=== PATIENT | male | born 1960 | race Caucasian/White ===

== ENCOUNTER 2022-12-25 15:04 | Outpatient (OUT) | payer OTHER, SELFPAY ==
--- NOTE | 2022-12-25 15:53 | CA_ITS ---
Patient: MCKAYLA CAMPOS Exam Date: 12/25/2022 : 1960 Gender:M Ordering : FATEMEH PETTIT Admission #: [id number] Family : Order #: [id number] CLICK HERE TO VIEW EXAM ECHOCARDIOGRAM REPORT PROCEDURE: CA ECHO DOPPLER COMPLETE INDICATIONS: Shortness of breath COMPARISON: None. DESCRIPTION: COMPLETE ECHOCARDIOGRAM Real-time transthoracic echocardiography with 2D, M-mode, spectral and color flow Doppler performed. QUALITY: Technical quality was good. LEFT VENTRICLE: Normal chamber size. Mild concentric left ventricular hypertrophy. LV EF: Global left ventricular systolic function is normal. Calculated left ventricular ejection fraction is 60% DIASTOLIC: Normal diastolic function. ATRIAL SEPTUM: Inadequately seen. LEFT ATRIUM: Normal chamber size. RIGHT ATRIUM: Normal chamber size. RIGHT VENTRICLE: Normal chamber size. Normal right ventricular systolic function. TRICUSPID VALVE: Normal mobility and thickness. No stenosis with trivial regurgitation. No evidence of pulmonary hypertension. RVSP 20mmHg MITRAL VALVE: Normal mobility and thickness. No evidence of mitral valve stenosis. There is no mitral annular calcification. Trivial mitral regurgitation. AORTIC VALVE: Normal trileaflet appearance. No visible sclerosis. Normal leaflet mobility. No evidence of aortic valve stenosis. No aortic regurgitation. AORTIC ROOT: Normal diameter and appearance. PULMONIC VALVE: Normal thickness and mobility. No stenosis. Trivial regurgitation. PERICARDIUM: No evidence of pericardial effusion. IVC: Collapses with inspirations. Normal size. CONCLUSION: 1. Global left ventricular systolic function is normal; visually estimated ejection fraction is 55 to 60% 2. Mildly increased left ventricular wall thickness 3. The right ventricle is normal in size and systolic function 4. Normal diastolic function 5. No significant valvular abnormalities Adult Echocardiography Procedure Report Left Ventricle LVEDD (3.7 - 5.6 cm): 5.04 cm LVESD (2.2 - 4.0 cm): 3.29 cm LVIVS thickness (0.6 - 1.2 cm): 1.31 cm LVPW thickness (0.5 - 1.0 cm): 1.24 cm e': 0.07 m/s E - e': 10.02 LVOT Max Gradient: 3.31 mm[Hg], 3.17 mm[Hg] LVOT Area (cm2): 0.90 m/s Peak Velocity (LVOT): 0.91 m/s, 0.89 m/s Mean Velocity (LVOT): 0.62 m/s LVOT Diameter 2.50 cm Left Ventricular Ejection Fraction: 59.97 % Left Atrium LA Volume Index (2D A2C): 25.62 ml/m2 Left Atrium Systolic Dimension: 3.56 cm Mitral Valve MV E to A Ratio: 0.76, 0.79 Mitral Valve A-Wave Peak Velocity: 0.92 m/s Mitral Valve E-Wave Peak Velocity: 0.72 m/s Right Ventricle RV Internal Diastolic Dimension: 3.71 cm Aorta AO Root Diam: 3.71 cm Ascending Ao Diam: 3.15 cm Aortic Valve AoV Area (Peak Felix): 3.73 cm2, 3.77 cm2, 3.69 cm2 AoV Area (VTI): 3.94 cm2, 3.91 cm2, 3.97 cm2 Peak Velocity(Antegrade Flow): 1.18 m/s, 1.18 m/s Peak Gradient(Antegrade Flow): 5.58 mm[Hg], 5.58 mm[Hg] Mean Velocity(Antegrade Flow): 0.87 m/s, 0.89 m/s Mean Gradient(Antegrade Flow): 3.36 mm[Hg], 3.53 mm[Hg] Velocity Time Integral: 24.43 cm, 25.92 cm Tricuspid Valve Peak Velocity (Regurgitant Flow): 1.77 m/s, 2.06 m/s Pulmonic Valve Peak Velocity: 0.70 m/s Peak Gradient: 2.26 mm[Hg], 1.63 mm[Hg] Right Atrium Right Atrium Systolic Pressure: 43.53 ml, 43.53 ml Dictated by: John Brice M.D. on 12/26/2022 at 16:54 Approved by: John Brice M.D. on 12/26/2022 at 16:57
== END 2022-12-25 15:05 | disposition home or self-care (01) ==
LOC: CARD 15:05
PROVIDERS: Visit Provider Nurse Practitioner
DX: R06.09 Other forms of dyspnea (principal)
CPT/HCPCS: 93306

== ENCOUNTER 2023-01-26 10:27 | Outpatient (OUT) | payer OTHER, SELFPAY ==
[2023-01-26 11:12] LABS: Basophils Absolute Auto 0.1 10^3/uL (0.0-0.1); Eosinophils Absolute Auto 0.2 10^3/uL (0.0-0.7); Eosinophils Percent Auto 2.2 % (0.9-7.0); Hematocrit 43.8 % (42.0-54.0); Hemoglobin 14.6 g/dL (14.0-18.0); Immature Granulocytes Abs Auto 0.03 10^3/uL (0.00-0.03); Immature Granulocytes Pct Auto 0.4 % (0.0-0.5); Lymphocytes Absolute Auto 2.5 10^3/uL (1.2-3.8); Lymphocytes Percent Auto 34.3 % (20.5-60.0); Mean Corpuscular HGB Conc 33.3 g/dL (29.9-35.2); Mean Corpuscular Hemoglobin 30.7 pg (25.9-34.0); Monocytes Absolute Auto 0.7 10^3/uL (0.3-0.8); Monocytes Percent Auto 9.9 % (1.7-12.0); Neutrophils Absolute Auto 3.7 10^3/uL (1.4-6.5); Neutrophils Percent Auto 52.2 % (43.0-75.0); Platelet Count 267 10^3/uL (150-450); Red Blood Count 4.76 10^6/uL (4.70-6.10); Red Cell Distribution Width 12.9 % (11.0-15.0); White Blood Count 7.2 10^3/uL (4.0-11.0)
[2023-01-26 12:00] LABS: Alanine Aminotransferase 28 U/L (16-63); Alkaline Phosphatase 90 U/L (46-116); Anion Gap 10.8; Aspartate Amino Transferase 17 U/L (15-37); BUN Creatinine Ratio 15.4; Bilirubin Total 0.3 mg/dL (0.2-1.0); Calcium 9.4 mg/dL (8.5-10.1); Carbon Dioxide 28.2 mmol/L (21.0-32.0); Chloride 102 mmol/L (98-107); Cholesterol 209 mg/dL (<=200); Estimated GFR (African America 58 (>=60); Estimated GFR (Non-African Ame 47 (>=60); Globulin 4.1 g/dL; Glucose 69 mg/dL (74-106); HDL Cholesterol 30 mg/dL (40-60); Sodium 137 mmol/L (136-145); Total Protein 8.1 g/dL (6.4-8.2); Triglycerides 142 mg/dL (<=150); VLDL CHOLESTEROL 28.4 mg/dL
== END 2023-01-26 10:28 | disposition home or self-care (01) ==
LOC: LAB 10:28
PROVIDERS: Visit Provider Nurse Practitioner Acute Care
DX: I25.10 Atherosclerotic heart disease of native coronary artery without angina pectoris (principal)
CPT/HCPCS: 36415; 80053; 80061; 85025

== ENCOUNTER 2023-12-08 08:58 | Outpatient (OUT) | payer OTHER, SELFPAY ==
--- NOTE | 2023-12-08 | PCN_ITS ---
CARDIAC STRESS TEST Requesting Physician: Mervat Vital NP Procedure Date: 12/08/2023 PERFORMING PROVIDER: Александр Mcfarland M.D. INDICATION: CAD evaluation. STRESS TEST PROTOCOL: Treadmill exercise stress test. Resting EKG: Sinus rhythm. Resting Heart Rate: 80 Peak Heart Rate: 146 Peak Maximal Heart Rate Percentage: 94 Resting Blood Pressure: 148/78 Peak Blood Pressure: 190/84 Exercise Time: 6 minutes 44 seconds Stage Reached: 3 Max METS: 9.20 Reason for Termination: Peripheral muscle fatigue, target heart rate achieved. Heart Rate Recovery: Normal Chronotropic Response Index: Normal Functional Capacity: Average Blood Pressure Response: Normal Salvador Treadmill Score: 6 CONCLUSION: 1. Resting EKG demonstrates normal sinus rhythm. 2. Patient exercised for 6 minutes and 44 seconds. She reached stage 3 with max METS 9.20. 3. There were no EKG changes meeting the criteria for ischemia at peak exercise. 4. Salvador score is 6, portending low risk of angiographically significant coronary artery disease. MIRELLA
--- OUTSIDE RECORDS SUMMARY | 2023-12-08 09:20 | XMS_ITS | CCD ---
Author Organization [facility] ion [facility] Care Team Providers Care Carpentry Professional Name Role Phone Alton Munguia Unavailable Unavailable NONE, XXXX Unavailable Unavailable PHYSICIAN, DEFAULT Unavailable Unavailable PHYSICIAN, DEFAULT Unavailable Unavailable SELF, REFERRED Unavailable Unavailable PHYSICIAN, DEFAULT Unavailable Unavailable PHYSICIAN, DEFAULT Unavailable Unavailable SELF, REFERRED Unavailable Unavailable MISC, DR MULLER Primary Care Unavailable PAY, DR MARCANO Admitting Unavailable PAY, DR MARCANO Attending Unavailable KETCHUM, DR ALYSSA Ricardo Consulting Unavailable PAY, DR MARCANO Consulting Unavailable RAMIREZ GALEANO Consulting Unavailable WILVER, FATEMEH Admitting Unavailable WILVER, FATEMEH Attending Unavailable WILVER, FATEMEH Admitting Unavailable WILVER, FATEMEH Attending Unavailable NO FAMILY, PHYSICIAN Primary Care Provider Unava ilable DO Oren Hall Emergency Provider [phone] [place], DELIVERY TRUCK DRIVER-BC Deepika E Emergency Provider NO FAMILY, PHYSICIAN Primary Care Provider Unava ilable KI Matthews Emergency Provider WILVER, FATEMEH Attending Unavailable GISSEL COYLE Attending Unavailable NO FAMILY, PHYSICIAN Primary Care Unavailable Bullimore, Deepika E Admitting Unavailable Bullimore, Deepika E Attending Unavailable Bullimore, Deepika E Admitting Unavailable Bullimore, Deepika E Attending Unavailable NO FAMILY, PHYSICIAN Primary Care Unavailable NO FAMILY, PHYSICIAN Primary Care Unavailable Oren Hall Admitting Unavailable Oren Hall Attending Unavailable Pop Matthews Admitting Unavailable Pop Matthews Attending Unavailable NO FAMILY, PHYSICIAN Primary Care Unavailable Bullimore, Deepika E Admitting Unavailable Bullimore, Deepika E Attending Unavailable NO FAMILY, PHYSICIAN Primary Care Unavailable Medications Current Medications Medication Drug Class(es) Dates Sig (Normalized) Sig (Original) baclofen 20 mg oral tablet (1 source) gamma-Aminobutyric Acid-ergic Agonist Start: 01-24-2023 Baclofen Active MG TABLET January 24, 2023 12:00am carvedilol 6.25 mg oral tablet (1 source) alpha-Adrenergic Trena, beta-Adrenergic Trena Start: 01-24-2023 take 1 mg by mouth once daily at mealtime Carvedilol (Coreg) 6.25 mg Tablet Active MG PO Daily January 24, 2023 12:00am must administer with a meal/food cephalexin 500 mg oral capsule (6 sources) Cephalosporin Antibacterial Start: 01-22-2023 take 500 mg by mouth four times daily Cephalexin Active 500 MG PO Four times daily 40 January 22, 2023 12:00am Start: 12-16-2022 End: 01-24-2023 take 1000 mg by mouth twice daily Cephalexin Discontinued 1000 MG PO Twice daily 40 December 16, 2022 12:00am January 24, 2023 1:18pm gabapentin 600 mg oral tablet (1 source) Anti-epileptic Agent Start: 01-24-2023 Gabapentin Active MG TABLET January 24, 2023 12:00am pramipexole dihydrochloride 0.5 mg oral tablet (1 source) Nonergot Dopamine Agonist Start: 01-24-2023 Pramipexole Active MG TABLET January 24, 2023 12:00am prasugrel 10 mg oral tablet (1 source) P2Y12 Platelet Inhibitor Start: 01-24-2023 Prasugrel Active MG TABLET January 24, 2023 12:00am Statin (1 source) Start: 01-24-2023 Statin Active January 24, 2023 12:00am sulfamethoxazole 800 mg / trimethoprim 160 mg oral tablet (6 sources) Dihydrofolate Reductase Inhibitor Antibacterial, Sulfonamide Antimicrobial Start: 12-16-2022 End: 01-24-2023 take 1 tablet by mouth twice daily Sulfamethoxazole -Trimethoprim (Bactrim Ds) 800-160 mg tablet Active 1 TAB PO Twice daily January 22, 2023 12:00am traMADol hydrochloride 50 mg oral tablet (1 source) Opioid Agonist Start: 01-24-2023 Tramadol Active MG TABLET January 24, 2023 12:00am Completed/Discontinued Medications Medication Drug Class(es) Dates Sig (Normalized) Sig (Original) acetaminophen 325 mg / HYDROcodone bitartrate 5 mg oral tablet (6 sources) Opioid Agonist Start: 01-22-2023 End: 01-24-2023 take 1 tablet by mouth every eight hours Hydrocodone-Acetami nophen Discontinued 1 TAB PO Q8H 7 2 January 22, 2023 January 24, 2023 1:18pm Start: 01-22-2023 take 1 tablet by malini th three times daily Hydrocodone-Acetaminophen Active 1 TAB P O Three times daily 7 2 January 22, 2023 Start: 10-05-2022 End: 12-16-2022 take 1 tablet by mouth every four to six hours Hydrocodone-Acetaminophen Discontinued 1 TAB PO EVERY 4-6 HOURS 10 October 05, 2022 December 16, 2022 1:27pm ciprofloxacin 500 mg oral tablet (4 sources) Quinolone Antimicrobial Start: 10-05-2022 End: 12-16-2022 take 500 mg by mouth twice daily Ciprofloxacin Hcl Discontinued 500 MG PO Twice daily October 05, 2022 12:00am December 16, 2022 1:26pm metroNIDAZOLE 500 mg oral tablet (4 sources) Nitroimidazole Antimicrobial Start: 10-05-2022 End: 01-24-2023 take 500 mg by mouth every eight hours Metronidazole Discontinued 500 MG PO Q8H 21 October 05, 2022 12:00am January 24, 2023 1:18pm ondansetron 4 mg oral tablet (4 sources) Serotonin-3 Receptor Antagonist Start: 10-05-2022 End: 01-24-2023 Ondansetron Hcl Discontinued 4 MG PO every 6 to 8 hours October 05, 2022 12:00am January 24, 2023 1:18pm Problems Active Problems Problem Classification Problem Date Documented Date Episodic/Chronic Biliary tract disease (8 sources) Cholecystitis; Translations: [Cholecystitis, unspecified] 10-05-2022 Episodic Coronary atherosclerosis and other heart disease (6 sources) Atherosclerotic heart disease of [place] coronary artery without angina pectoris; Translations: [ASHD [place] CA W/O ANGINA PECTORIS] Onset: 01-22-2022 Chronic Disorders of lipid metabolism (2 sources) Mixed hyperlipidemia; Translations: [Mixed hyperlipidemia] Onset: 01-26-2023 Chronic Influenza (1 source) Influenza due to other identified influenza virus with other respiratory manifestations; Translations: [FLU D/T OTH ID FLU VIR OTH RSP MANF] Onset: 03-04-2022 Episodic Skin and subcutaneous tissue infections (12 sources) Abscess; Translations: [Cutaneous abscess, unspecified] Onset: 12-16-2022 12-16-2022 Episodic Substance-related disorders (3 sources) Nicotine dependence, cigarettes, uncomplicated; Translations: [Nicotine dependence, unspecified, uncomplicated] Onset: 02-24-2022 Chronic Unclassified (3 sources) COUGH, UNSPECIFIED; Translations: [COUGH, UNSPECIFIED] Onset: 03-04-2022 Unclassified (1 source) CONTACT W/AND (SUSP) EXPOS COVID-19; Translations: [CONTACT W/AND (SUSP) EXPOS COVID-19] Onset: 03-04-2022 Viral infection (4 sources) COVID-19; Translations: [COVID-19 virus RNA test result positive at limit of detection] 12-16-2022 Episodic Past or Other Problems Problem Classification Problem Date Documented Da te Episodic/Chronic Abdominal pain (5 sources) Abdominal pain; Translations: [Unspecified abdominal pain] Onset: 10-05-2022 10-13-2022 Episodic Coronary atherosclerosis and other heart disease (2 sources) Presence of coronary angioplasty implant and graft; Translations: [Presence of coronary angioplasty implant and graft] Onset: 03-26-2022 Episodic Other lower respiratory disease (2 sources) Other forms of dyspnea; Translations: [Other forms of dyspnea] Onset: 02-24-2022 Episodic Unclassified (1 source) COUGH, UNSPECIFIED; Translations: [COUGH, UNSPECIFIED] Onset: 02-28-2022 Results Test Name Value Interpretation Reference Range Facility Office Visiton 01-26-2023 Follow-up visit [id number] Deion Dumont 1960 M Date Provider Department Center 01/26/2023 [id number] COYLE [facility] Family History Problem Relation Age of Onset Other Mother Heart disease Father Family Status - Relation Status Age at Mother Father Level of Service:49419 [place] OFFICE/OUTPATIENT ESTABLISHED MOD MDM 30-39 MIN Normal [facility] COVID CepheidOrdered By: Leonela Vallejo on 12-16-2022 SARS-CoV-2 (COVID-19) Ab IA Ql Positive Negative [facility] Comment on above: This is a duplicate Cepheid Xpert Xpress CoV-2/Flu/RSV Plus RNA by RT-PCR result to be used for statistical tracking purpose only. SARS-CoV-2 (COVID-19) RNA ZEV+probe Ql (Unsp spec) [facility] COVID-19 / Flu A/B / RSV PCR on 12-16-2022 SARS-CoV-2 (COVID-19) RNA ZEV+probe Ql (Unsp spec) Results called at 1446 on 12/16/22. COVID-19 Cepheid Result Positive for SARS-CoV-2 RNA by RT-PCR Flu A Cepheid Result Negative for Flu A RNA by RT-PCR Flu B Cepheid Result Negative for Flu B RNA by RT-PCR RSV Cepheid Result Negative for RSV RNA by RT-PCR COVID19 Blank Space Reference: Negative COVID19 Blank Space Cepheid Disclaimer The Cepheid Xpert Xpress CoV-2/Flu/RSV Plus has Cepheid Disclaimer not been FDA cleared or approved; this test has Cepheid Disclaimer been authorized by FDA under an EUA for use by Cepheid Disclaimer authorized laboratories; this test has been Cepheid Disclaimer authorized only for the simultaneous qualitative Cepheid Disclaimer detection and differentiation of nucleic acids from Cepheid Disclaimer SARS-CoV-2, influenza A, influenza B, and Cepheid Disclaimer respiratory syncytial virus (RSV), and not for any Cepheid Disclaimer other viruses or pathogens; and this test is only Cepheid Disclaimer authorized for the duration of the declaration that Cepheid Disclaimer circumstances exist justifying the authorization of Cepheid Disclaimer emergency use of in vitro diagnostic tests for Cepheid Disclaimer detection and/or diagnosis of COVID-19 under Cepheid Disclaimer Section 564(b)(1) of the Act, 21 U.S.C. 360bbb- Cepheid Disclaimer 3(b)(1), unless the authorization is terminated or Cepheid Disclaimer revoked sooner. PERFORMED BY: [place] [address] PATHOLOGIST ADDICTION SOCIAL WORKER ALPA SNOWDEN M.D. Normal [facility] Comment on above: Performed By: #### C EPHEID POS, COVID19 FLU RSV #### [address] Cepheid COVID PCR Positiveon 12-16-2022 SARS-CoV-2 (COVID-19) RNA ZEV+probe Ql (Unsp spec) Positive Critically abnormal Negative [facility] Comment on above: Result Comment: This is a duplicate Cepheid Xpert Xpress CoV-2/Flu/RSV Plus RNA by RT-PCR result to be used for statistical tracking purpose only. PERFORMED BY: [place] [address] PATHOLOGIST ADDICTION SOCIAL WORKER ALPA SNOWDEN M.D. Performed By: #### C EPHEID POS, COVID19 FLU RSV #### [address] [address] [facility] Alanine aminotransferase [En zymatic activity/volume] in Serum or PlasmaOrdered By: Oren Hall on 10-05-2022 ALT [Catalytic activity/Vol] 20 U/L 7-52 [facility] Albumin [Mass/volume] in Ser um or Plasma by Bromocresol green (BCG) dye binding methoOrdered By: Oren Hall on 10-05-2022 Albumin BCG dye [Mass/Vol] 4.4 g/dL 3.5-5.7 [facility] Alkaline phosphatase [Enzyma tic activity/volume] in Serum or PlasmaOrdered By: Oren Hall on 10-05-2022 ALP [Catalytic activity/Vol] 79 U/L 34-104 [facility] Aspartate aminotransferase [ Enzymatic activity/volume] in Serum or PlasmaOrdered By: Oren Hall on 10-05-2022 AST [Catalytic activity/Vol] 14 U/L 13-39 [facility] Basophils Auto (Bld) [#/Vol] Ordered By: Oren Hall on 10-05-2022 Basophils (Bld) [#/Vol] 0.1 10*3/uL 0.0-0.2 [facility] Basophils/100 WBC Auto (Bld) Ordered By: Oren Hall on 10-05-2022 Basophils/100 WBC (Bld) 0.6 % . [facility] Bilirubin Test strip Ql (U)O rdered By: Oren Hall on 10-05-2022 Bilirubin Ql (U) Negative Negative [facility] Bilirubin.total [Mass/volume ] in Serum or PlasmaOrdered By: Oren Hall on 10-05-2022 Bilirubin [Mass/Vol] 0.5 mg/dL 0.3-1.[address] [facility] [address] abdomen pelvis w conon CT abdomen pelvis w con [place] [address] CT Scan Report Signed Patient: Deion Dumont MR#: [id number] : 1960 Acct:[id number] Age/Sex: 61 / M ADM Date: 10/05/22 Loc: ER Room: Type: PRE ER Attending Dr: Copies to: Oren Hall DO Ordering Provider: Oren Hall DO Date of Service: 10/05/22 CT/CT abdomen pelvis w con: abd pain CT ABDOMEN AND PELVIS WITH CONTRAST COMPARISON: None CLINICAL DATA: Generalized abdominal pain and nausea. Spiral images were obtained through the abdomen and pelvis following 90 mL Isovue-300. This CT exam was performed using one or more following dose reduction techniques: Automated exposure control, adjustment of the mA and/or kV according to patient size, or use of iterative reconstruction technique. Limited cuts through the lung bases show right pulmonary nodules measuring 12 mm and 15 mm in size. These could subtle associated calcification. There is fatty infiltration of the liver. There is pericholecystic inflammation. No definite calcified gallstones are seen. Acute cholecystitis is possible. The common duct is borderline prominent. There are no common duct stones. The spleen, pancreas and adrenal glands show no acute findings. There are bilateral symmetric renal nephrograms, without hydronephrosis. There are moderate atherosclerotic plaque at the aorta and iliac arteries. There are tiny lymph nodes. No ascites is seen. A tiny umbilical hernia is present containing fat. There is fluid within the stomach. The small bowel loops are not distended. There is stool within the right colon. The left colon is underdistended. There are some left-sided diverticula. Subtle levoscoliotic curvature and multilevel degenerative changes are visualized at the spine. Images through the pelvis show no dilated small bowel loops. The appendix is not identified. There is minimal distal colonic stool. Additional descending and sigmoid diverticula are visualized, without associated active inflammation. The prostate is top normal in size. No bladder abnormalities are noted. There is no free fluid. Minor spurring and sclerosis are seen at the SI joints CT/CT abdomen pelvis w con IMPRESSION: RIGHT PULMONARY NODULES. THERE MIGHT BE MINIMAL ASSOCIATED CALCIFICATION. CORRELATION AND FOLLOW- UP ARE SUGGESTED SINCE THERE ARE NO PRIORS TO CONFIRM STABILITY. FATTY LIVER. SUSPICION OF CHOLECYSTITIS. FOLLOW-UP ULTRASOUND COULD BE CONSIDERED. NO BOWEL OR URINARY TRACT OBSTRUCTION. DIVERTICULOSIS. Impression dictated by: Martha Barrientos M.D.10/05/2022 2:07 PM Dictation Location: [place] [address] Transcribed By: [facility] 10/05/22 1407 Dictated By: Martha Barrientos MD 10/05/22 1400 Signed By: 10/05/22 1407 Normal [facility] Calcium [Mass/volume] in Ser um or PlasmaOrdered By: Oren Hall on 10-05-2022 Calcium [Mass/Vol] 9.2 mg/dL 8.6-10.3 [facility] [place] Carbon dioxide, total [Moles /volume] in Serum or PlasmaOrdered By: Oren Hall on 10-05-2022 CO2 [Moles/Vol] 28.6 mmol/L 21.0-31.0 [facility] Chloride [Moles/volume] in S luci or PlasmaOrdered By: Oren Hall on 10-05-2022 Chloride [Moles/Vol] 103 mmol/L 98-107 [facility] Color Auto (U)Ordered By: Channing Hall on 10-05-2022 Color (U) Yellow Yellow [facility] Complete Blood Count Auto Di ffon 10-05-2022 Basophils (Bld) [#/Vol] 0.1 10*3/uL Normal 0.0-0.2 [facility] Comment on above: Result Comment: PERF ORMED BY: [place] [address] PATHOLOGIST ADDICTION SOCIAL WORKER ALPA SNOWDEN M.D. Performed By: #### C MP, CBC #### [facility] [address] [place] [address] [place] Basophils/100 WBC (Bld) 0.6 % Normal . [facility] Comment on above: Performed By: #### C MP, CBC #### [place] [address] [place] Eosinophils (Bld) [#/Vol] 0.0 10*3/uL Normal 0.0-0.45 [facility] Comment on above: Performed By: #### C MP, CBC #### [address] Eosinophils/100 WBC (Bld) 0.2 % Normal . [facility] Comment on above: Performed By: #### C MP, CBC #### [address] Erythrocyte distribution width (RBC) [Ratio] 14.2 % Normal 12.0-14.8 [facility] Comment on above: Performed By: #### C MP, CBC #### [address] Hematocrit (Bld) [Volume fraction] 44.9 % Normal 38.8-50.0 [facility] Comment on above: Performed By: #### C MP, CBC #### [place] [address] [place] Hemoglobin (Bld) [Mass/Vol] 15.5 g/dL Normal 13.0-17.0 [facility] Comment on above: Performed By: #### C MP, CBC #### [place] [address] [place] Lymphocytes (Bld) [#/Vol] 1.5 10*3/uL Normal 1.00-4.8 [facility] Comment on above: Performed By: #### C MP, CBC #### [facility] [address] [place] [address] [place] Lymphocytes/100 WBC (Bld) 11.3 % Normal . [facility] Comment on above: Performed By: #### C MP, CBC #### [facility] [address] MCH (RBC) [Entitic mass] 31.1 pg Normal 27.5-35.2 [facility] Comment on above: Performed By: #### C MP, CBC #### [facility] [address] MCV (RBC) [Entitic vol] 90.0 fL Normal 83.5-101 [facility] Comment on above: Performed By: #### C MP, CBC #### [address] Mean Corpuscular HGB Conc 34.6 g/dL Normal 32.5-35.6 [facility] Comment on above: Performed By: #### C MP, CBC #### [facility] [address] [place] [address] [place] Monocytes (Bld) [#/Vol] 0.9 10*3/uL High 0.0-0.8 [facility] Comment on above: Performed By: #### C MP, CBC #### [place] [address] [place] Monocytes/100 WBC (Bld) 18.44 % Normal 0.00-20.00 [facility] Comment on above: Performed By: #### C MP, CBC #### [facility] [address] [place] [address] [place] Monocytes/100 WBC (Bld) 6.9 % Normal . [facility] Comment on above: Performed By: #### C MP, CBC #### [place] [address] [place] Neutrophils (Bld) [#/Vol] 10.7 10*3/uL High 1.8-7.7 [facility] Comment on above: Performed By: #### C MP, CBC #### [facility] [address] Neutrophils/100 WBC (Bld) 81.0 % Normal . [facility] Comment on above: Performed By: #### C MP, CBC #### [facility] [address] NRBC% 0.0 /100{WBC} Normal 0-0.5 [facility] Comment on above: Performed By: #### C MP, CBC #### [facility] [address] Platelet mean volume (Bld) [Entitic vol] 7.0 fL Normal 6.6-10.1 [facility] Comment on above: Performed By: #### C MP, CBC #### [address] Platelets (Bld) [#/Vol] 263 10*3/uL Normal 150-450 [facility] Comment on above: Performed By: #### C MP, CBC #### [address] RBC (Bld) [#/Vol] 4.99 10*6/uL Normal 3.90-5.60 [facility] Comment on above: Performed By: #### C MP, CBC #### [address] WBC (Bld) [#/Vol] 13.2 10*3/uL High 4.1-10.5 [facility] Comment on above: Performed By: #### C MP, CBC #### [address] Comprehensive Metabolic Pane kavitha 10-05-2022 Albumin [Mass/Vol] 4.4 g/dL Normal 3.5-5.7 [facility] Comment on above: Performed By: #### C MP, CBC #### [address] Albumin/Globulin [Mass ratio] 1.4 {ratio} Normal [facility] Comment on above: Performed By: #### C MP, CBC #### [facility] [address] ALP [Catalytic activity/Vol] 79 U/L Normal 34-104 [facility] Comment on above: Performed By: #### C MP, CBC #### [facility] [address] ALT [Catalytic activity/Vol] 20 U/L Normal 7-52 [facility] Comment on above: Performed By: #### C MP, CBC #### [facility] [address] Anion gap [Moles/Vol] 10.1 mmol/L Normal 6.0-15.0 [facility] Comment on above: Performed By: #### C MP, CBC #### [facility] [address] [place] [address] AST [Catalytic activity/Vol] 14 U/L Normal 13-39 [facility] Comment on above: Performed By: #### C MP, CBC #### [facility] [address] [place] [address] Bilirubin [Mass/Vol] 0.5 mg/dL Normal 0.3-1.0 [facility] Comment on above: Performed By: #### C MP, CBC #### [facility] [address] [place] [address] Calcium [Mass/Vol] 9.2 mg/dL Normal 8.6-10.3 [facility] Comment on above: Performed By: #### C MP, CBC #### [facility] [address] [place] [address] [place] Chloride [Moles/Vol] 103 mmol/L Normal 98-107 [facility] Comment on above: Performed By: #### C MP, CBC #### [facility] [address] CO2 [Moles/Vol] 28.6 mmol/L Normal 21.0-31.0 [facility] Comment on above: Performed By: #### C MP, CBC #### [facility] [address] Creatinine [Mass/Vol] 1.16 mg/dL Normal 0.70-1.30 [facility] Comment on above: Performed By: #### C MP, CBC #### [address] Creatinine Clr Calc Pharmacy 72.56 Normal [facility] Comment on above: Result Comment: PERF ORMED BY: [place] [address] PATHOLOGIST ADDICTION SOCIAL WORKER ALPA SNOWDEN M.D. Performed By: #### C MP, CBC #### [address] GFR/1.73 sq M.predicted MDRD (S/P/Bld) [Vol rate/Area] mL/min/{1.73_m2} Normal [facility] Comment on above: Performed By: #### C MP, CBC #### [address] Globulin (S) [Mass/Vol] 3.1 g/dL Normal [facility] Comment on above: Performed By: #### C MP, CBC #### [address] Glucose [Mass/Vol] 121 mg/dL High 70-100 [facility] Comment on above: Result Comment: [facility] Glucose Reference Range is dependent on time and content of last meal. Glucose of more than 200 mg/dL in a nonstressed, ambulatory subject supports the diagnosis of Diabetes Mellitus. ADA recommended reference range Performed By: #### C MP, CBC #### [address] Potassium [Moles/Vol] 4.7 mmol/L Normal 3.5-5.1 [facility] Comment on above: Performed By: #### C MP, CBC #### [address] Protein [Mass/Vol] 7.5 g/dL Normal 6.4-8.9 [facility] Comment on above: Performed By: #### C MP, CBC #### [facility] [address] [place] [address] [place] Sodium [Moles/Vol] 137 mmol/L Normal 136-145 [facility] Comment on above: Performed By: #### C MP, CBC #### [facility] [address] [place] [address] [place] Urea nitrogen [Mass/Vol] 14 mg/dL Normal 7-25 [facility] Comment on above: Performed By: #### C MP, CBC #### [facility] [address] Creatinine [Mass/volume] in Serum or PlasmaOrdered By: Oren Hall on 10-05-2022 Creatinine [Mass/Vol] 1.16 mg/dL 0.70-1.30 [facility] ECG 12 lead ECGon 10-05-2022 ECG 12 lead ECG [facility] Main [place] [address] [place] [address] Electrocardiograph Report Signed Patient: Deion Dumont MR#: [id number] 334 : 1960 Acct:[id number] Age/Sex: 61 / M ADM Date: 10/05/22 Loc: ER Room: Type: [facility] ER Attending Dr: Ordering Provider: Oren Hall DO Date of Service: 10/05/22 ECG/ECG 12 lead ECG: Abdominal Pain Copies to: Test Reason : Blood Pressure : / mmHG Vent. 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) Abnormal ECG When compared with ECG of 05-OCT-2022 11:32, (Unconfirmed) No significant change was found Confirmed by Oren Hall DO ([id number]) on 10/05/2022 3:11:44 PM Referred By: Electronically Signed By:Oren Hall DO Transcribed By: MUS Signed By Oren Hall DO 3 [address] [facility] ECG 12 lead ECG [facility] [place] [address] Electrocardiograph Report Signed Patient: Deion Dumont MR#: [id number] 334 : 1960 Acct:[id number] Age/Sex: 61 / M ADM Date: 10/05/22 Loc: ER Room: Type: [facility] ER Attending Dr: Ordering Provider: Oren Hall DO Date of Service: 10/05/22 ECG/ECG 12 lead ECG: Abdominal Pain Copies to: Test Reason : Blood Pressure : 139/079 mmHG Vent. 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 [facility] Erythrocyte distribution wid th Auto (RBC) [Ratio]Ordered By: Oren Hall on 10-05-2022 Erythrocyte distribution width (RBC) [Ratio] 14.2 % 12.0-14.8 [facility] Globulin Calc (S) [Mass/Vol] Ordered By: Oren Hall on 10-05-2022 Globulin (S) [Mass/Vol] 3.1 g/dL [facility] Glucose [Mass/volume] in Ser um or PlasmaOrdered By: Oren Hall on 10-05-2022 Glucose [Mass/Vol] 121 mg/dL 70-100 [facility] Comment on above: ADA recommended refe rence rangeRandom Glucose Reference Range is dependent on time and content of last meal. Glucose of more than 200 mg/dL in a nonstressed, ambulatory subject supports the diagnosis of Diabetes Mellitus. Hematocrit Auto (Bld) [Volum e fraction]Ordered By: Oren Hall on 10-05-2022 Hematocrit (Bld) [Volume fraction] 44.9 % 38.8-50.0 [facility] Hemoglobin [Mass/volume] in BloodOrdered By: Oren Hall on 10-05-2022 Hemoglobin (Bld) [Mass/Vol] 15.5 g/dL 13.0-17.0 [facility] Ketones Auto test strip (U) [Mass/Vol]Ordered By: Oren Hall on 10-05-2022 Ketones (U) [Mass/Vol] Negative Negative [facility] Lactate [Moles/volume] in Se rum or PlasmaOrdered By: Oren Hall on 10-05-2022 Lactate [Moles/Vol] 1.2 mmol/L 0.5-2.2 [facility] Lactic Acidon 10-05-2022 Lactate [Moles/Vol] 1.2 mmol/L Normal 0.5-2.2 [facility] Comment on above: Result Comment: PERF ORMED BY: [place] [address] PATHOLOGIST [employer]DICTION SOCIAL WORKER ALPA SNOWDEN M.D. Performed By: #### L ACTIC #### [address] Leukocytes [#/volume] correc juan for nucleated erythrocytes in Blood by Automated counOrdered By: Oren Hall on 10-05-2022 WBC corrected for nucl RBC Auto (Bld) [#/Vol] 13.2 10*3/uL 4.1-10.5 [facility] Lipaseon 10-05-2022 Lipase [Catalytic activity/Vol] 17.0 U/L Normal 11.0-82.0 [facility] Comment on above: Result Comment: PERF ORMED BY: [address] [place] [address] PATHOLOGIST ADDICTION SOCIAL WORKER ALPA SNOWDEN M.D. Performed By: #### L IPASE #### [address] Lipase [Enzymatic activity/v olume] in Serum or PlasmaOrdered By: Oren Hall on 10-05-2022 Lipase [Catalytic activity/Vol] 17.0 U/L 11.0-82.0 [facility] Lymphocytes Auto (Bld) [#/Vo l]Ordered By: Oren Hall on 10-05-2022 Lymphocytes (Bld) [#/Vol] 1.5 10*3/uL 1.00-4.8 [facility] Lymphocytes/100 WBC Auto (Bl d)Ordered By: Oren Hall on 10-05-2022 Lymphocytes/100 WBC (Bld) 11.3 % . [facility] MCH Auto (RBC) [Entitic mass ]Ordered By: Oren Hall on 10-05-2022 MCH (RBC) [Entitic mass] 31.1 pg 27.5-35.2 [facility] MCHC Auto (RBC) [Mass/Vol]Or dered By: Oren Hall on 10-05-2022 MCHC (RBC) [Mass/Vol] 34.6 g/dL 32.5-35.6 [facility] MCV Auto (RBC) [Entitic vol] Ordered By: Oren Hall on 10-05-2022 MCV (RBC) [Entitic vol] 90.0 fL 83.5-101 [facility] Monocyte distribution width [Entitic volume] in Blood by AutomatedOrdered By: Oren Hall on 10-05-2022 Monocyte distribution width Auto (Bld) [Entitic vol] 18.44 % 0.00-20.00 [facility] Monocytes Auto (Bld) [#/Vol] Ordered By: Oren Hall on 10-05-2022 Monocytes (Bld) [#/Vol] 0.9 10*3/uL 0.0-0.8 [facility] Monocytes/100 WBC Auto (Bld) Ordered By: Oren Hall on 10-05-2022 Monocytes/100 WBC (Bld) 6.9 % . [facility] Neutrophils Auto (Bld) [#/Vo l]Ordered By: Oren Hall on 10-05-2022 Neutrophils (Bld) [#/Vol] 10.7 10*3/uL 1.8-7.7 [facility] Neutrophils/100 WBC Auto (Bl d)Ordered By: Oren Hall on 10-05-2022 Neutrophils/100 WBC (Bld) 81.0 % . [facility] Nitrite Test strip Ql (U)Ord ered By: Oren Hall on 10-05-2022 Nitrite Ql (U) Negative Negative [facility] No Panel InformationOrdered By: Oren Hall on 10-05-2022 Estimated GFR (CKD-EPI) > 60.0 mL/Min [facility] Creatinine Clearance (Chem 72.56 [facility] Nucleated erythrocytes [Pres ence] in Blood by Automated countOrdered By: Oren Hall on 10-05-2022 Nucleated RBC Auto Ql (Bld) 0.0 /100{WBC} 0-0.5 [facility] Platelet mean volume Auto (B ld) [Entitic vol]Ordered By: Oren Hall on 10-05-2022 Platelet mean volume (Bld) [Entitic vol] 7.0 fL 6.6-10.1 [facility] Platelets Auto (Bld) [#/Vol] Ordered By: Oren Hall on 10-05-2022 Platelets (Bld) [#/Vol] 263 10*3/uL 150-450 [facility] Potassium [Moles/volume] in Serum or PlasmaOrdered By: Oren Hall on 10-05-2022 Potassium [Moles/Vol] 4.7 mmol/L 3.5-5.1 [facility] Protein Auto test strip (U) [Mass/Vol]Ordered By: Oren Hall on 10-05-2022 Protein (U) [Mass/Vol] Negative Negative [facility] Protein [Mass/volume] in Ser um or PlasmaOrdered By: Oren Hall on 10-05-2022 Protein [Mass/Vol] 7.5 g/dL 6.4-8.9 [facility] RBC Auto (Bld) [#/Vol]Ordere d By: Oren Hall on 10-05-2022 RBC (Bld) [#/Vol] 4.99 10*6/uL 3.90-5.60 [facility] Serum or plasma albumin/glob ulin mass ratioOrdered By: Oren Hall on 10-05-2022 Albumin/Globulin [Mass ratio] 1.4 {ratio} [facility] Serum or plasma anion gap de terminationOrdered By: Oren Hall on 10-05-2022 Anion gap [Moles/Vol] 10.1 mmol/L 6.0-15.0 [facility] Sodium [Moles/volume] in Ser um or PlasmaOrdered By: Oren Hall on 10-05-2022 Sodium [Moles/Vol] 137 mmol/L 136-145 [facility] Specific gravity Auto test s trip (U) [Rel density]Ordered By: Oren Hall on 10-05-2022 Specific gravity (U) [Rel density] > 1.050 1.001-1.030 [facility] Urea nitrogen [Mass/volume] in Serum or PlasmaOrdered By: Oren Hall on 10-05-2022 Urea nitrogen [Mass/Vol] 14 mg/dL 7-25 [facility] Urinalysison 10-05-2022 Appearance (U) Clear Normal Clear [facility] Comment on above: Order Comment: Name Collection Type:: Clean-Voided Midstream Performed By: #### U A #### [facility] [address] [place] [address] [place] Bilirubin,Urine Negative Normal Negative [facility] Comment on above: Order Comment: Name Collection Type:: Clean-Voided Midstream Performed By: #### U A #### [facility] [address] [place] [address] [place] Color (U) Yellow Normal Yellow [facility] Comment on above: Order Comment: Name Collection Type:: Clean-Voided Midstream Performed By: #### U A #### [facility] [address] [place] [address] [place] Glucose Ql (U) Normal Normal Normal [facility] Comment on above: Order Comment: Name Collection Type:: Clean-Voided Midstream Performed By: #### U A #### [facility] [address] [place] [address] Ketones Ql (U) Negative Normal Negative [facility] Comment on above: Order Comment: Name Collection Type:: Clean-Voided Midstream Performed By: #### U A #### [address] Leukocyte esterase Test strip Ql (U) Negative Normal Negative [facility] Comment on above: Order Comment: Name Collection Type:: Clean-Voided Midstream Performed By: #### U A #### [place] [address] [place] Nitrite,Urine Negative Normal Negative [facility] Comment on above: Order Comment: Name Collection Type:: Clean-Voided Midstream Performed By: #### U A #### [place] [address] [place] Occult Blood,Urine Negative Normal Negative [facility] Comment on above: Order Comment: Name Collection Type:: Clean-Voided Midstream Result Comment: PERF ORMED BY: [place] [address] PATHOLOGIST ADDICTION SOCIAL WORKER ALPA SNOWDEN M.D. Performed By: #### U A #### [facility] [address] [place] [address] [place] pH (U) 7.0 [pH] Normal 5.0-9.0 [facility] Comment on above: Order Comment: Name Collection Type:: Clean-Voided Midstream Performed By: #### U A #### [place] [address] [place] Protein,Urine Negative Normal Negative [facility] Comment on above: Order Comment: Name Collection Type:: Clean-Voided Midstream Performed By: #### U A #### [address] [place] [address] [facility] Specificy [place],Urine > 1.050 High 1.001-1.030 [facility] Comment on above: Order Comment: Name Collection Type:: Clean-Voided Midstream Performed By: #### U A #### [facility] [address] [place] [id number] [facility] Urobilinogen,Urine Normal Normal Normal [facility] Comment on above: Order Comment: Name Collection Type:: Clean-Voided Midstream Performed By: #### U A #### [facility] [address] [place] [id number] [facility] Urine clarity by refractomet ry automatedOrdered By: Oren Hall on 10-05-2022 Clarity Refractometry automated (U) Clear Clear [facility] Urine glucose measurement by automated test strip (mass/volume)Ordered By: Oren Hall on 10-05-2022 Glucose Auto test strip (U) [Mass/Vol] Normal mg/dL Normal [facility] Urine hemoglobin detection b y automated test stripOrdered By: Oren Hall on 10-05-2022 Hemoglobin Auto test strip Ql (U) Negative Negative [facility] Urine leukocyte esterase det ection by automated test stripOrdered By: Oren Hall on 10-05-2022 Leukocyte esterase Auto test strip Ql (U) Negative Negative [facility] Urobilinogen Auto test strip (U) [Mass/Vol]Ordered By: Oren Hall on 10-05-2022 Urobilinogen (U) [Mass/Vol] Normal mg/dL Normal [facility] WBC Auto (Bld) [#/Vol]Ordere d By: Oren Hall on 10-05-2022 WBC (Bld) [#/Vol] 13.2 10*3/uL 4.1-10.5 [facility] pH Auto test strip (U)Ordere d By: Oren Hall on 10-05-2022 pH (U) 7.0 [pH] 5.0-9.0 [facility] Telemedicineon 03-26-2022 Telemedicine [id number] Deion Dumont 1960 M Date Provider Department Center 03/26/2022 FATEMEH HANNON [facility]. Family History Problem Relation Age of Onset Other Mother Heart disease Father Family Status - Relation Status Age at Mother Father Level of Service:88873 [place] PHYS/QHP TELEPHONE EVALUATION 21-30 MIN Reason for Visit and Comments: Coronary Artery Disease [187] Normal [facility]on SARS-CoV-2 (COVID-19) RNA ZEV+probe Ql (Unsp spec) Not detected Normal NOT DETECTED [facility] Comment on above: Result Comment: When diagnostic testing is negative, the possibility of a false negative should be considered in the context of a patient's recent exposures and the presence of clinical signs and symptoms consistent with SARS-CoV-2. This test is not yet approved or cleared by the [place] FDA. When there are no FDA-approved or cleared tests available, and other criteria are met, FDA can make tests available under an emergency access mechanism called an Emergency Use Authorization (EUA). The EUA for this test is supported by the [employer] Tender of Health and Human Service's declaration that circumstances exist to justify the emergency use of in vitro diagnostics for the detection and/or diagnosis of the virus that causes COVID-19. This EUA will remain in effect for the duration of the COVID-19 declaration justifying emergency of IVDs, unless it is terminated or revoked by the FDA (after which the test may no longer be used). Performed By: #### C VDTBH #### [facility] [address] [place] [address] Dr. Miriam Ramon INFLUENZA A AND B AGon 02-28 INFLUBNEGH SEE BELOW Normal [facility] Comment on above: Result Comment: Nega tive for Flu B protein antigen. Infection due to Flu B cannot be ruled out. Flu B antigen in the sample may be below the detection limit of the test. Performed By: #### I NFLUAB #### [facility] [address] [place] [address] Dr. Miriam Ramon INFLUENZA A AG Positive Abnormal NEGATIVE SEE COMMENT [facility] Comment on above: Performed By: #### I NFLUAB #### [facility] [address] [place] [address] Dr. Miriam Ramon INFLUENZA B AG Negative Normal NEGATIVE SEE COMMENT [facility] Comment on above: Performed By: #### I NFLUAB #### [facility] [address] [place] [address] Dr. Miriam Ramon INTERNAL CONTROLS Within Normal Limits Normal Within Normal Limits [facility] Comment on above: Performed By: #### I NFLUAB #### [facility] [address] [address] [address] Miriam Ramon XR CHEST 2 Von 02-28-2022 XR CHEST 2 V EXAMINATION: XR CHEST 2 V HISTORY: COUGH COMPARISON: No relevant comparison available. TECHNIQUE: PA and lateral FINDINGS: LUNGS: Nodule in the right lateral mid to lower lung zone. Size and density suggestive of a granuloma. Mild left basilar opacity VASCULATURE: No increased pulmonary vasculature. PLEURA: No pneumothorax, effusion, or pleural thickening. CARDIAC: No cardiomegaly or cardiac silhouette abnormality. MEDIASTINUM: No visible mass or adenopathy. BONES: No fracture or visible bone lesion. OTHER: Negative. IMPRESSION: Right basilar nodule possibly granuloma Minimal left basilar infiltrate Electronically authenticated by: ALYSSA PANIAGUA Date: 2022-02-28 15:28 Normal [facility] Documentationon 02-04-2022 Documentation [id number] Deion Dumont 1960 M Date Provider Department Center 02/04/2022 FATEMEH HANNON [facility]. No family history on file Normal [facility] Orders Onlyon 01-29-2022 Orders Only [id number] Deion Dumont 1960 M Date Provider Department Center 01/29/2022 SONIA BETHEA [facility] No family history on file Normal [facility] Vital Signs Date Time Vital Sign Value Performing Clinician Faci lity 01-24-2023 13:040 Body height 172.72 cm PHYSICIAN NO [facility] 01-24-2023 13: Body temperature 98.4 [degF] PHYSICIAN NO [facility] 01-24-2023 13:040 Body weight 94 kg PHYSICIAN NO [facility] 01-24-2023 13:19-0400 Diastolic blood pressure 77 mm[Hg] PHYSICIAN NO [facility] 01-24-2023 13:19-0400 Heart rate 100 /min PHYSICIAN NO [facility] 01-24-2023 13:19-0400 Respiratory rate 18 /min PHYSICIAN NO [facility] 01-24-2023 13:19-0400 SaO2% (BldA) [Mass fraction] 97 % PHYSICIAN NO [facility] 01-24-2023 13:19-0400 Systolic blood pressure 141 mm[Hg] PHYSICIAN NO [facility] 01-22-2023 11:45-0400 Body height 175.26 cm PHYSICIAN NO [facility] 01-22-2023 11:45-0400 Body temperature 97.3 [degF] PHYSICIAN NO [facility] 01-22-2023 11:45-0400 Body weight 94.1 kg PHYSICIAN NO [facility] 01-22-2023 11:45-0400 Diastolic blood pressure 70 mm[Hg] PHYSICIAN NO [facility] 01-22-2023 11:45-0400 Heart rate 91 /min PHYSICIAN NO [facility] 01-22-2023 11:45-0400 Respiratory rate 18 /min PHYSICIAN NO [facility] 01-22-2023 11:45-0400 SaO2% (BldA) [Mass fraction] 95 % PHYSICIAN NO [facility] 01-22-2023 11:45-0400 Systolic blood pressure 140 mm[Hg] PHYSICIAN NO [facility] 12-18-2022 13:21-0400 Body temperature 98.2 [degF] PHYSICIAN NO [facility] 12-18-2022 13:21-0400 Diastolic blood pressure 78 mm[Hg] PHYSICIAN NO [facility] 12-18-2022 13:21-0400 Heart rate 96 /min PHYSICIAN NO [facility] 12-18-2022 13:21-0400 Respiratory rate 18 /min PHYSICIAN NO [facility] 12-18-2022 13:21-0400 SaO2% (BldA) [Mass fraction] 98 % PHYSICIAN NO [facility] 12-18-2022 13:21-0400 Systolic blood pressure 163 mm[Hg] PHYSICIAN NO [facility] 12-18-2022 13:18-0400 Body height 175.26 cm PHYSICIAN NO [facility] 12-18-2022 13:18-0400 Body weight 92 kg PHYSICIAN NO [facility] 12-16-2022 13:27-0400 Body height 175.26 cm PHYSICIAN NO [facility] 12-16-2022 13:27-0400 Body temperature 97.7 [degF] PHYSICIAN NO [facility] 12-16-2022 13:27-0400 Body weight 91.7 kg PHYSICIAN NO [facility] 12-16-2022 13:27-0400 Diastolic blood pressure 86 mm[Hg] PHYSICIAN NO [facility] 12-16-2022 13:27-0400 Heart rate 99 /min PHYSICIAN NO [facility] 12-16-2022 13:27-0400 Respiratory rate 18 /min PHYSICIAN NO [facility] 12-16-2022 13:27-0400 SaO2% (BldA) [Mass fraction] 98 % PHYSICIAN NO [facility] 12-16-2022 13:27-0400 Systolic blood pressure 142 mm[Hg] PHYSICIAN NO [facility] 10-05-2022 14:42-0400 Body temperature 97.5 [degF] PHYSICIAN NO [facility] 10-05-2022 14:42-0400 Diastolic blood pressure 98 mm[Hg] PHYSICIAN NO [facility] 10-05-2022 14:42-0400 Heart rate 87 /min PHYSICIAN NO [facility] 10-05-2022 14:42-0400 Respiratory rate 16 /min PHYSICIAN NO [facility] 10-05-2022 14:42-0400 SaO2% (BldA) [Mass fraction] 99 % PHYSICIAN NO [facility] 10-05-2022 14:42-0400 Systolic blood pressure 169 mm[Hg] PHYSICIAN NO [facility] 10-05-2022 11:27040 Body height 175.26 cm PHYSICIAN NO [facility] 10-05-2022 11:27-0400 Body weight 90.71 kg PHYSICIAN NO [facility] Encounters Encounter Date Encounter Type Care Provider Facility Start: 01-26-2023 End: 01-26-2023 ambulatory [facility] Start: 01-26-2023 End: 01-26-2023 Encounter for general adult medical examination without abnormal findings [facility] Start: 01-24-2023 End: 01-24-2023 Emergency department patient visit Deepika Vallejo Facility:[facility] Start: 01-24-2023 End: 01-24-2023 Emergency department patient visit PHYSICIAN NO [facility] Work Phone: Start: 01-22-2023 End: 01-22-2023 Emergency department patient visit Pop Matthews Facility:[facility] Start: 01-22-2023 End: 01-22-2023 Emergency department patient visit PHYSICIAN NO [facility] Work Phone: Start: 12-18-2022 End: 12-18-2022 Emergency department patient visit Deepika Vallejo Facility:[facility] Start: 12-18-2022 End: 12-18-2022 Emergency department patient visit PHYSICIAN NO [facility] Work Phone: Start: 12-16-2022 End: 12-16-2022 Emergency department patient visit PHYSICIAN NO FAMILY Facility:[facility] Start: 12-16-2022 End: 12-16-2022 Emergency department patient visit PHYSICIAN NO [facility] Work Phone: Start: 10-05-2022 End: 10-05-2022 Emergency department patient visit PHYSICIAN NO FAMILY Facility:[facility] Start: 10-05-2022 End: 10-05-2022 Emergency department patient visit PHYSICIAN NO [facility] Work Phone: Start: 03-26-2022 End: 03-26-2022 ambulatory FATEMEH PETTIT [facility] Start: 02-28-2022 End: 02-28-[address] DOCTOR ROGERS Facility:[facility] Start: 01-22-2022 End: 01-23-2022 ambulatory FATEMEH PETTIT Facility:[facility] Start: 09-20-2021 ambulatory FATEMEH PETTIT Facility:[facility] Start: 11-09-2017 End: 11-10-2017 Patient encounter DEFAULT PHYSICIAN Facility:[facility] Start: 03-20-2017 End: 03-21-2017 Ambulatory Alton Munguia Facility:CD:[id number] Start: 01-05-2017 End: 01-06-2017 Patient encounter DEFAULT PHYSICIAN Facility:[facility] Procedures Date Procedure Procedure Detail Performing Clinician Start: 12-16-2022 SARS-CoV-2, Influenz a & RSV (PCR) PHYSICIAN NO FAMILY Start: 10-05-2022 Computed tomography of abdomen and pelvis with contrast PHYSICIAN NO FAMILY Plan of Treatment Date Care Activity Detail Author Patient Education [facility] Work Phone: Patient referral [facility] Work Phone: Payers Date Payer Category Payer Unknown [id number] 1961 Self-pay 1961 Unknown [id number] 1960 Unknown [id number] .16.84 [id number] 1960 Unknown [id number] .16.84 [id number] 1960 Unknown [id number] .16.84 [id number] Unknown Unknown Karoline BC/BS [id number] Unknown [id number] 2.16.8 [id number] Unknown [id number] 2.16.8 [id number] Unknown [id number] 2.16.8 [id number] Unknown [id number] 2.16.8 [id number] Unknown [id number] 2.16.8 [id number] Social History Date Type Detail Facility Start: 12-16-2022 End: 01-24-2023 Tobacco smoking status NHIS Smoker (finding) [facility] Start: 1960 Sex Assigned At Male [facility] Clinical Notes 01-22-2022 to 01-26-2023 Note Date & Type Note Facility 01-26-2023 Note Patient here for 1 y ear follow up and DOT physical clearance. He had echo last month, and a stress test in Jan 2022. He denies chest pain, SOB, palpitations, and lightheadedness. Doing very well from cardiac standpoint. Continues to smoke 1 PPD. No recent lab work. Review of Systems Musculoskeletal: Positive for back pain. All other systems reviewed and are negative. [facility] 01-26-2023 Note Cardiology Clinic No te Subjective Deion Dumont is a 62 y.o. year old male patient with past medical history of coronary artery disease s/p MALINDA to RCA (2016), hyperlipidemia, and tobacco dependence. Patient Active Problem List Diagnosis Cardiovascular stress test abnormal Coronary atherosclerosis Dyspnea Electrocardiogram abnormal Headache Lumbar herniated disc Meralgia paresthetica Midline low back pain with sciatica Opioid withdrawal (CMS/HCC) Radiculopathy, lumbar region Restless leg syndrome Smoker Stented coronary artery Family History Problem Relation Name Age of Onset Other (Malig neoplastic disease) Mother Heart disease Father Social History Tobacco Use Smoking status: Every Day Packs/day: 1.00 Types: Cigarettes Smokeless tobacco: Never Update: 01/26/2023 Here to obtain cardiac clearance for DOT physical He has been doing well since his last office visit without concerns from a cardiac standpoint Smoking about a pack a day, had previously quit for 9 months but resumed as his continues to smoke Denies chest pain, shortness of breath, or palpitations Review of Systems Cardiovascular: Negative for chest pain, dyspnea on exertion, irregular heartbeat, leg swelling, near-syncope, orthopnea, palpitations, paroxysmal nocturnal dyspnea and syncope. Objective Visit Vitals BP 139/78 (BP Location: Left arm, Patient Position: Sitting) Pulse 92 Ht 1.753 m (5' 9 ) Wt 96.2 kg (212 lb) SpO2 97% BMI 31.31 kg/m??? Smoking Status Every Day BSA 2.16 m??? Physical Exam General: Awake, alert, NAD Neck: No elevated JVP. No carotid bruit Pulm: Breath sounds clear to ascultation bilaterally with no wheeze, crackles or rhonchi Cards: Regular rate and rhythm, S1, S2. No S3 or S4 gallop. Murmur: none Extr: Lower extremity edema: None. Skin: warm, dry, well perfused Neuro: A&Ox3, No gross deficits Allergies No Known Allergies Medications Current Outpatient Medications: aspirin 325 mg tablet, Take 1 tablet every day by oral route., Disp: , Rfl: gabapentin (Neurontin) 600 mg tablet, TAKE 1 TABLET BY MOUTH TWICE DAILY NEEDED FOR NERVE PAIN, Disp: , Rfl: pramipexole (Mirapex) 0.5 mg tablet, TAKE 1 TABLET BY MOUTH ONCE DAILY AT BEDTIME NEEDED FOR RESTLESS LEGS, Disp: , Rfl: prasugrel (Effient) 10 mg tablet, Take 1 tablet (10 mg) by mouth in the morning., Disp: 90 tablet, Rfl: 3 traMADol (Ultram) 50 mg tablet, TAKE 1 TO 2 TABLETS BY MOUTH TWICE DAILY FOR PAIN FOR 5 DAYS. NO DRIVING., Disp: , Rfl: albuterol 90 mcg/actuation inhaler, INHALE 2 PUFFS BY MOUTH 4 TIMES DAILY NEEDED FOR SHORTNESS OF BREATH FOR WHEEZING, Disp: , Rfl: carvedilol (Coreg) 6.25 mg tablet, Take 1 tablet (6.25 mg) by mouth with breakfast and with evening meal., Disp: 180 tablet, Rfl: 3 rosuvastatin (Crestor) 40 mg tablet, Take 1 tablet (40 mg) by mouth at bedtime., Disp: 90 tablet, Rfl: 3 Recent Labs Obtain labs- no recent labs Imaging and other tests Echo: 12/26/2022 LVEF 55-60%, mildly increased LVH The right ventricle is normal in size and systolic function Normal diastolic function No significant valvular abnormalities Stress test: 01/2022 Patient with average functional capacity, exercised 5 minutes and 32 seconds, reaching stage 2 on Adonay protocol and a maximum METS of 7. No definitive EKG evidence of ischemia Echocardiogram completed 02/04/2021 Normal LV size systolic function ejection fraction 55% No valvular dysfunction Normal right-sided pressures 07/10/2016 Severe proximal/ostial stenosis of the RCA s/p MALINDA Moderately heavily calcific diseases of the LAD Mild disease of the left circumflex Normal global LV systolic function Recommendation Aspirin 81 mg lifelong Effient 10 mg daily for a minimum of 6 months, preferably longtern Aggressive CVD risk factor modification Assessment Diagnoses and all orders for this visit: Coronary artery disease involving [place] coronary artery of [place] heart without angina pectoris - carvedilol (Coreg) 6.25 mg tablet; Take 1 tablet (6.25 mg) by mouth with breakfast and with evening meal. - rosuvastatin (Crestor) 40 mg tablet; Take 1 tablet (40 mg) by mouth at bedtime. - Comprehensive metabolic panel; Future - CBC; Future - Lipid panel; Future Mixed hyperlipidemia Tobacco dependence Normal cardiovascular exam Plan 1. Coronary artery disease -Coronary artery disease status post PCI to proximal RCA (07/10/2016), stable without anginal symptoms. He is maintained on Effient, rosuvastatin and carvedilol. He takes he a full dose aspirin about 3 times a week. I have advised he decrease to 81 mg and take on a daily basis. -He was recommended lifelong DAPT therapy aspirin/Effient if able to tolerate, will continue this regimen given ongoing smoking. If develops bleeding issues can switch to SAPT aspirin 81 mg only. -Will obtain CMP and lipid profile today. 2. Hyperlipi (more content not included)... [facility] 03-26-2022 Note Stable no Acute concerns [facility] 03-26-2022 Note 10 min discussion ag ain regarding smoking cessation- he is not ready to quit. [facility] 03-26-2022 Note Stable, no acute concerns [facility] 03-26-2022 Note Coronary artery dise ase is stable, MALNIDA RCA continue risk factor modifications- heart healthy diet, regular exercise as tolerated and continue all medications. Continue ASA, prasugrel, crestor and coreg [facility] 03-26-2022 Note Date of phone call: 03/26/2022 Chief Complaint Patient presents with Coronary Artery Disease HPI 61 yo male presented today via tele medicine for routine f/U for CAD s/p stent, dyspnea. States 3 weeks ago he had URI/flu- and continues to have sinus congestion, headache and states his voice is still altered. Denied chest pain, shortness of breath, orthopnea, The current state of emergency for COVID-19 Total time spent in Medical Discussion: 30 minutes. Total 30 minutes. The visit was initiated by the patient and conducted [id number] with use of audio-only real time telephone communication between patient and provider for a virtual visit. Verbal consent to provide and bill for this service was obtained on 03/26/2022. No signature was obtained due to the COVID-19 pandemic. PE- Resp unlabored, no s/s of distress Echocardiogram completed 02/04/2021 Normal LV size systolic function ejection fraction 55% No valvular dysfunction Normal right-sided pressures No pericardial effusion Assessment / Plan: Coronary atherosclerosis Coronary artery disease is stable, MALINDA RCA continue risk factor modifications- heart healthy diet, regular exercise as tolerated and continue all medications. Continue ASA, prasugrel, crestor and coreg Dyspnea Stable, no acute concerns Smoker 10 min discussion again regarding smoking cessation- he is not ready to quit. Stented coronary artery Stable no Acute concerns RTC 6 months [facility] 02-27-2022 Note This report has been cancelled. [facility] 02-27-2022 Note This report has been cancelled. [facility] 02-27-2022 Note This report has been cancelled. [facility] 02-27-2022 Note This report has been cancelled. [facility] 02-04-2022 Note From a cardiology pe rspective- pt's treadmill stress test was without ischemia or acute EKG changes. Pt may have DOT clearance from a cardiology aspect, and may proceed with his occupation without cardiac limitations. [facility] 01-22-2022 Note CARDIAC STRESS TEST Requesting Physician: Fatemeh STARKS DELIVERY TRUCK DRIVER-C Procedure Date:01/22/2022 Performing Physician: Александр Mcfarland M.D. INDICATION: Coronary atherosclerosis. STRESS TEST TYPE: Treadmill. Protocol: Adonay. Resting Heart Rate: 84 Peak Heart Rate: 134 Resting Blood Pressure: 158/80 Peak Blood Pressure: 228/96 Peak Maximal Heart Rate Percentage: 85% Exercise Time: 5 minutes and 32 seconds Stage Reached: 2 Max METS: 7.0 Reason For Termination: Leg fatigue and dyspnea. Heart Rate Recovery: Normal CRI: Normal Functional Capacity: Average Blood Pressure Response: Exaggerated ST Changes: No definitive ST changes indicative of ischemia. [place] Treadmill Score: >/= 5, normal. Symptoms: Dyspnea Arrhythmias: Isolated PVC and PAC. CONCLUSIONS: 1. Patient with average functional capacity, exercised 5 minutes and 32 seconds, reaching stage 2 on Adonay protocol and a maximum METS of 7.0. 2. No definitive EKG evidence of ischemia. 3. Clinical correlation recommended. [facility] Evaluation note No assessment inform ation available [facility] Work Phone: Hospital Discharge instructions Additional Instructions Return in 2 days for packing removal and recheck Take the antibiotics cephalexin and Bactrim both twice a day for 10 days You can change the dressing from the abscess but try to leave the packing in place You can continue to check for COVID until you are negative Return to the ER sooner for fever chills worsening abscess and pain or any other concerns [facility] Work Phone: Hospital Discharge instructions Additional Instructions Finish your antibiotic Change the dressing as needed May keep it clean with soap and water Follow-up with family doctor for recheck Return to the ER for worsening redness swelling pain fever chills or any other concerns [facility] Work Phone: Hospital Discharge instructions Additional Instructions Continue your antibiotic Change dressing as needed For persistent swelling tenderness may follow-up with [facility] For worsening pain fever chills swelling drainage return to the ER [facility] Work Phone: Summary Purpose Family History No Family History Records FoundNo Family History Records FoundNo Family History Records FoundNo Family History Records FoundNo Family History Records Found Advance Directives No Advanced Directives Records Found Advance Directive Response Recorded Date/ Time Advance Directives No October 05 2:37pm Chief Complaint and Reason for Visit Chief Complaint abd pain Personal Chief Complaint abd pain Personal packing removal Chief Complaint Personal packing removal abcess Chief Complaint Personal packing removal abcess packing removal Additional Source Comments (unrecognized sect ion and content) No Status Records FoundNo Status Records FoundNo Status Records FoundNo Status Records FoundNo Status Records Found INFORMATION SOURCE (unrecogn ized section and content) DATE CREATED AUTHOR 09/15/2017 Jesus Curry [facility] DATE CREATED AUTHOR AUTHOR'S ORGANIZ ATION 11/10/2017 [facility] DATE CREATED AUTHOR AUTHOR'S ORGANIZ ATION 03/05/2022 [facility] DATE CREATED AUTHOR AUTHOR'S ORGANIZ ATION 01/26/2023 [facility] DATE CREATED AUTHOR AUTHOR'S ORGANIZ ATION 02/05/2023 [facility] Care Teams (unrecognized sec tion and content) Team Status: Active Member Role Status Dates PHYSICIAN NO FAMILY Primary Care Provider Active Team Status: Inactive Member Role Status Dates PHYSICIAN NO FAMILY Primary Care Provider Active Deepika Vallejo , DELIVERY TRUCK DRIVER- Emergency Provider Active Team Status: Inactive Member Role Status Dates PHYSICIAN NO FAMILY Primary Care Provider Active Oren Hall DO Emergency Provider Active Emmy Vargas MD RES Active Team Status: Inactive Member Role Status Dates PHYSICIAN NO FAMILY Primary Care Provider Active Pop Matthews APRN Emergency Provider Active Goals (unrecognized section and content) Goals may be documented in a n alternate sectionGoals may be documented in an alternate sectionGoals may be documented in an alternate sectionGoals may be documented in an alternate section FOR RECORDS PERTAINING TO PATIENTS WHO ARE OR HAVE BEEN ENROLLED IN A CHEMICAL DEPENDENCY/SUBSTANCEABUSE PROGRAM, SOME INFORMATION MAY BE OMITTED. This clinical summary was aggregated from multiple sources. Caution should be exercised in using it in the provision of clinical care. This summary normalizes information from multiple sources, and as a consequence, information in this document may materially change the coding, format and clinical context of patient data. In addition, data may be omitted in some cases. CLINICAL DECISIONS SHOULD BE BASED ON THE PRIMARY CLINICAL RECORDS. [employer] provides no warranty or guarantee of the accuracy or completeness of information in this document.
== END 2023-12-08 08:59 | disposition home or self-care (01) ==
LOC: CARD 08:58
PROVIDERS: Visit Provider Nurse Practitioner
DX: I25.10 Atherosclerotic heart disease of native coronary artery without angina pectoris (principal); I25.83 Coronary atherosclerosis due to lipid rich plaque
CPT/HCPCS: 93017

== ENCOUNTER 2025-01-03 16:11 | Outpatient (OUT) | payer MEDICARE, OTHER, SELFPAY ==
--- OUTSIDE RECORDS SUMMARY | 2025-01-03 16:15 | XMS_ITS | CCD ---
Author Organization [facility] Care Team Providers Care Camp Assistant Name Role Phone Alton Munguia Unavailable Unavailable NONE, XXXX Unavailable Unavailable PHYSICIAN, DEFAULT Unavailable Unavailable PHYSICIAN, DEFAULT Unavailable Unavailable SELF, REFERRED Unavailable Unavailable PHYSICIAN, DEFAULT Unavailable Unavailable PHYSICIAN, DEFAULT Unavailable Unavailable SELF, REFERRED Unavailable Unavailable MISC, DR MULLER Primary Care Unavailable PAY, DR MARCANO Admitting Unavailable PAY, DR MARCANO Attending Unavailable WEST, DR ALYSSA Ricardo Consulting Unavailable PAY, DR MARCANO Consulting Unavailable RAMIREZ GALEANO Consulting Unavailable WILVERMERVAT Kulkarni Admitting Unavailable WILVERMERVAT Kulkarni Attending Unavailable WILVERMERVAT Admitting Unavailable WILVERMERVAT Attending Unavailable NO FAMILY, PHYSICIAN Primary Care Provider Unava ilable DO Oren Hall Emergency Provider [phone] [facility] Emergency Provider [phone]( [phone] NO FAMILY, PHYSICIAN Primary Care Provider Unava ilable KI Matthews Emergency Provider [phone] Unavailable Primary Care Provider Unavailmadelyn e NO FAMILY, PHYSICIAN Primary Care Provider Unava ilable Leo BARILLAS, Kristen Borges Emergency Provider Higinio Minaya MD Admit Provider Dm Torres DO Attending Provider Morgan Morrell DO Other Provider MERVAT PETTIT Attending Unavailable ARASH BARRY Attending Unavailable Cecily Bergeron MD Provider Primary Care Provi kevin Morgan Morrell DO Attending Provider Stanley Muñoz MD Primary Care Provider Colby Malagon DO Emergency Provider Adam Ashley MD Admit Provider Adam Ashley MD Attending Provider [phone] MORGAN MORRELL Attending Unavailable MORGAN MORRELL Attending Unavailable LOREN NEWELL Attending Unavailable LOREN NEWELL Referring Unavailable MORGAN MORRELL Attending Unavailable Morgan Morrell Attending Unavailable Stanley Muñoz Primary Care Unavailable Morgan Morrell Admitting Unavailable NO FAMILY, PHYSICIAN Primary Care Unavailable Higinio Minaya Admitting Unavailable Dm Torres Attending UnavailMorgan Mueller Consulting Unavailable Adam Ashley Admitting Unavailable Adam Ashley Attending Unavailable Stanley Muñoz Primary Care Unavailable Morgan Morrell Attending Unavailable Stanley Muñoz Primary Care Unavailable Morgan Morrell Admitting Unavailable Medications Current Medications Medication Drug Class(es) Dates Sig (Normalized) Sig (Original) acetaminophen 500 mg oral tablet (2 sources) Start: 08-29-2024 take 2 tablets by mouth every six hours as needed for pain Acetaminophen (Tylenol Extra Strength) 500 mg tablet Active 1000 MG PO Every 6 hours as needed for pain August 29, 2024 12:00am Complies with drug therapy acetaminophen 325 mg / oxyCODONE hydrochloride 7.5 mg oral tablet (1 source) Opioid Agonist Start: 09-12-2024 take 1 tablet by mouth every six hours as needed for pain Oxycodone-Acetamino phen (Endocet) 7.5-325 mg tablet Active 1 TAB PO Every 6 hours as needed for pain 30 7 September 12, 2024 Complies with drug therapy aspirin 81 mg oral tablet (8 sources) Platelet Aggregation Inhibitor, Nonsteroidal Anti-inflammatory Drug Start: 08-29-2024 take 1 tablet by mouth once daily Aspirin 81 mg tablet Active 81 MG PO Daily August 29, 2024 12:00am Complies with drug therapy End: 08-08-2024 take 1 tablet by mouth once daily aspirin 325 MG tablet Take 1 tablet by mouth Daily 08/08/2024 Discontinued azithromycin 250 mg oral tablet (1 source) Macrolide Antimicrobial Start: 01-20-2024 End: 01-25-2024 azithromycin (Zithromax) 250 MG tablet Indications: Lower respiratory infection Take 2 tabs (500 mg) by mouth today, than 1 tab (250 mg) daily for 4 days. 6 tablet 01/20/2024 01/25/2024 Active carvedilol 6.25 mg oral tablet (20 sources) alpha-Adrenergic Trena, beta-Adrenergic Trena Start: 01-24-2023 carvedilol (Coreg) 6.25 MG tablet 01/24/2023 Active Start: 01-24-2023 take 1 mg by mouth o nce daily at mealtime Carvedilol (Coreg) 6.25 mg Tablet Active MG PO Daily January 24, 2023 12:00am must administer with a meal/food gabapentin 600 mg oral tablet (20 sources) Anti-epileptic Agent Start: 01-24-2023 gabapenti n (Neurontin) 600 MG tablet 12/26/2023 Active Start: 01-24-2023 Gabapentin Act alexander MG TABLET January 24, 2023 12:00am pramipexole dihydrochloride 0.5 mg oral tablet (20 sources) Nonergot Dopamine Agonist Start: 01-24-2023 pramipexole (Mirapex ) 0.5 MG tablet 01/24/2023 Active Start: 01-24-2023 Pramipexole Ac tive MG TABLET January 24, 2023 12:00am prasugrel 10 mg oral tablet (19 sources) P2Y12 Platelet Inhibitor Start: 01-24-2023 End: 03-02-2025 take 1 tablet by mouth in the morning prasugrel (Effient) 10 MG tablet Take 10 mg by mouth in the morning. 03/02/2024 03/02/2025 Active Start: 01-24-2023 Prasugrel Acti ve MG TABLET January 24, 2023 12:00am predniSONE 10 mg oral tablet (4 sources) Start: 01-17-2024 End: 01-28-2024 take 6 tablets by mouth once daily, then take 5 tablets by mouth once daily, then take 4 tablets by mouth once daily, then take 3 tablets by mouth once daily, then take 2 tablets by mouth once daily, then take 1 tablet by mouth once daily predniSONE (Deltasone) 10 MG tablet Indications: Acute cough , Shortness of breath , Acute bilateral low back pain without sciatica Take 6 tablets (60 mg) by mouth Daily for 2 days, THEN 5 tablets (50 mg) Daily for 2 days, THEN 4 tablets (40 mg) Daily for 2 days, THEN 3 tablets (30 mg) Daily for 2 days, THEN 2 tablets (20 mg) Daily for 2 days, THEN 1 tablet (10 mg) Daily for 2 days. 42 tablet 01/17/2024 01/28/2024 Active rosuvastatin calcium 40 mg oral tablet (20 sources) HMG-CoA Reductase Inhibitor Start: 01-26-2023 rosuvastatin (Crestor) 40 MG tablet 01/26/2023 Active Statin (1 source) Start: 01-24-2023 Statin Active January 24, 2023 12:00am tiZANidine 4 mg oral tablet (20 sources) Central alpha-2 Adrenergic Agonist Start: 07-23-2024 take 1 tablet by mouth once daily as needed for pain Tizanidine 4 mg tablet Active 4 MG PO Daily as needed for pain July 23, 2024 12:00am Complies with drug therapy traMADol hydrochloride 50 mg oral tablet (19 sources) Opioid Agonist Start: 01-24-2023 take 1-2 tablets by mouth twice daily as needed for pain traMADol (Ultram) 50 MG tablet TAKE 1 TO 2 TABLETS BY MOUTH TWICE DAILY NEEDED FOR PAIN FOR 7 DAYS 12/26/2023 Active Start: 01-24-2023 take 1 tablet by malini th once daily as needed for pain Tramadol 50 mg tablet Active 50 MG PO Daily as needed for pain January 24, 2023 12:00am Complies with drug therapy Start: 01-24-2023 Tramadol Activ e MG TABLET January 24, 2023 12:00am Completed/Discontinued Medications Medication Drug Class(es) Dates Sig (Normalized) Sig (Original) acetaminophen 325 mg / HYDROcodone bitartrate 5 mg oral tablet (12 sources) Opioid Agonist Start: 01-22-2023 End: 01-24-2023 take 1 tablet by mouth every eight hours as needed for pain Hydrocodone-Acetami nophen 5-325 mg tablet Discontinued 1 TAB PO Q8H as needed for pain 7 January 22, 2023 January 24, 2023 1:18pm Start: 01-22-2023 take 1 tablet by malini th three times daily Hydrocodone-Acetaminophen Active 1 TAB P O Three times daily 7 January 22, 2023 Start: 10-05-2022 End: 12-16-2022 take 1 tablet by mouth every four to six hours as needed for pain Hydrocodone-Acetaminophen 5-325 mg table t Discontinued 1 TAB PO EVERY 4-6 HOURS as needed for pain 10 October 05, 2022 December 16, 2022 1:27pm amoxicillin 875 mg / clavulanate 125 mg oral tablet (4 sources) Penicillin-class Antibacterial Start: 01-17-2024 End: 01-27-2024 take 1 tablet by mouth in the morning amoxicillin-clavulanate (Augmentin) 875-125 MG tablet Indications: Lower respiratory infection Take 1 tablet (875 mg) by mouth in the morning and 1 tablet (875 mg) before bedtime. Do all this for 10 days. 20 tablet 01/17/2024 01/27/2024 baclofen 20 mg oral tablet (10 sources) gamma-Aminobutyric Acid-ergic Agonist Start: 01-24-2023 End: 08-08-2024 Baclofen 20 mg tablet Discontinued MG January 24, 2023 12:00am July 24, 2024 12:02am Start: 01-24-2023 Baclofen Activ e MG TABLET January 24, 2023 12:00am cephalexin 500 mg oral capsule (12 sources) Cephalosporin Antibacterial Start: 01-22-2023 End: 07-24-2024 take 1 capsule by mouth four times daily Cephalexin 500 mg capsule Discontinued 500 MG PO Four times daily 40 January 22, 2023 12:00am July 24, 2024 12:03am Start: 12-16-2022 End: 01-24-2023 take 2 capsules by mouth twice daily Cephalexin 500 mg capsule Discontinued 1000 MG PO Twice daily 40 December 16, 2022 12:00am January 24, 2023 1:18pm Start: 12-16-2022 End: 01-24-2023 take 1000 mg by mouth twice daily Cephalexin Discontinued 1000 MG PO Twice daily 40 December 16, 2022 12:00am January 24, 2023 1:18pm ciprofloxacin 500 mg oral tablet (7 sources) Quinolone Antimicrobial Start: 10-05-2022 End: 12-16-2022 take 1 tablet by mouth twice daily Ciprofloxacin Hcl 500 mg tablet Discontinued 500 MG PO Twice daily October 05, 2022 12:00am December 16, 2022 1:26pm codeine phosphate 2 mg/ml / guaiFENesin 20 mg/ml oral solution (4 sources) Opioid Agonist Start: 01-17-2024 End: 01-22-2024 take 10 mL by mouth every eight hours for cough guaiFENesin-codein e (Robitussin-AC) 100-10 MG/5ML syrup Indications: Acute cough Take 10 mL by mouth every 8 (eight) hours if needed for cough for up to 5 days 150 mL 01/17/2024 01/22/2024 doxycycline hyclate 100 mg oral capsule (6 sources) Tetracycline-class Drug Start: 10-31-2023 End: 08-08-2024 take 1 capsule by mouth twice daily doxycycline (Vibramycin) 100 MG capsule TAKE 1 CAPSULE BY MOUTH TWICE DAILY FOR SKIN INFECTIONS OR BRONCHITIS 10/31/2023 08/08/2024 Discontinued metroNIDAZOLE 500 mg oral tablet (7 sources) Nitroimidazole Antimicrobial Start: 10-05-2022 End: 01-24-2023 take 1 tablet by mouth every eight hours Metronidazole 500 mg tablet Discontinued 500 MG PO Q8H 10 10October 05, 2022 12:00am January 24, 2023 1:18pm ondansetron 4 mg oral tablet (7 sources) Serotonin-3 Receptor Antagonist Start: 10-05-2022 End: 01-24-2023 Ondansetron Hcl 4 mg tablet Discontinued 4 MG PO every 6 to 8 hours as needed for nausea and vomiting October 05, 2022 12:00am January 24, 2023 1:18pm sulfamethoxazole 800 mg / trimethoprim 160 mg oral tablet (12 sources) Dihydrofolate Reductase Inhibitor Antibacterial, Sulfonamide Antimicrobial Start: 12-16-2022 End: 07-24-2024 take 1 tablet by mouth twice daily Sulfamethoxazole-T rimethoprim (Bactrim Ds) 800-160 mg tablet Discontinued 1 TAB PO Twice daily January 22, 2023 12:00am July 24, 2024 12:05am ursodiol 500 mg oral tablet (6 sources) Bile Acid Start: 06-30-2023 End: 08-08-2024 take 1 tablet by mouth in the morning ursodiol (Actigall) 500 MG tablet Take 500 mg by mouth in the morning and 500 mg before bedtime. 06/30/2023 08/08/2024 Discontinued Problems Active Problems Problem Classification Problem Date Documented Date Episodic/Chronic Biliary tract disease (6 sources) Cholangiectasis; Translations: [Other specified diseases of biliary tract] 07-24-2024 Chronic Biliary tract disease (20 sources) Cholecystitis; Translations: [Cholecystitis, unspecified] Onset: 07-24-2024 10-05-2022 Episodic Complications of surgical procedures or medical care (1 source) Postprocedural hematoma of a digestive system organ or structure following a digestive system procedure; Translations: [Postprocedural hematoma of a digestive system organ or structure following a digestive system procedure] Onset: 09-13-2024 Episodic Coronary atherosclerosis and other heart disease (13 sources) Atherosclerotic heart disease of [place] coronary artery without angina pectoris; Translations: [Coronary arteriosclerosis] Onset: 01-22-2022 Chronic Crushing injury or internal injury (4 sources) Intra-abdominal hematoma; Translations: [Injury to other intra-abdominal organs without mention of open wound into cavity, unspecified intra-abdominal organ] 09-13-2024 Episodic Disorders of lipid metabolism (2 sources) Mixed hyperlipidemia; Translations: [Mixed hyperlipidemia] Onset: 12-11-2023 Chronic Influenza (1 source) Influenza due to other identified influenza virus with other respiratory manifestations; Translations: [FLU D/T OTH ID FLU VIR OTH RSP MANF] Onset: 03-04-2022 Episodic Malaise and fatigue (2 sources) Fatigue; Translations: [Other fatigue] 01-17-2024 Episodic Other lower respiratory disease (3 sources) Lower respiratory tract infection; Translations: [Unspecified acute lower respiratory infection] 01-20-2024 Episodic Other lower respiratory disease (2 sources) Cough; Translations: [Acute cough] 01-17-2024 Episodic Other lower respiratory disease (2 sources) Dyspnea; Translations: [Shortness of breath] 01-17-2024 Episodic Pneumonia (except that caused by tuberculosis or sexually transmitted disease) (1 source) Right lower zone pneumonia; Translations: [Pneumonia, unspecified organism] 01-19-2024 Episodic Skin and subcutaneous tissue infections (20 sources) Abscess; Translations: [Cutaneous abscess, unspecified] 12-16-2022 Episodic Spondylosis; intervertebral disc disorders; other back problems (2 sources) Acute low back pain; Translations: [Acute bilateral low back pain without sciatica] 01-17-2024 Episodic Substance-related disorders (3 sources) Nicotine dependence, cigarettes, uncomplicated; Translations: [Nicotine dependence, unspecified, uncomplicated] Onset: 02-24-2022 Chronic Syncope (2 sources) Syncope; Translations: [Syncope and collapse] 09-13-2024 Episodic Unclassified (3 sources) COUGH, UNSPECIFIED; Translations: [COUGH, UNSPECIFIED] Onset: 03-04-2022 Unclassified (1 source) CONTACT W/AND (SUSP) EXPOS COVID-19; Translations: [CONTACT W/AND (SUSP) EXPOS COVID-19] Onset: 03-04-2022 Unclassified (1 source) [facility] is accepting new patients. Call office on Thursday to schedule follow-up to become established with a Primary Care Provider. Follow-up within 5-7 days of discharge. Unclassified (1 source) Call office to schedule follow-up with General Surgery to discuss outpatient cholecystectomy. Unclassified (1 source) A [facility] screening has identified you as FRAIL or AT RISK FOR FRAILTY. This puts you at a higher risk for infection, illness, falls, and other injuries. Here are four ways to help you reduce your risk of frailty: 1. IDENTIFY EARLY SIGNS OF FRAILTY Discuss contributing factors and concerns with your doctor 2. BE ACTIVE Walking and light strengthening exercises will help reduce weakness 3. EAT WELL Aim for three healthy meals a day that are high in protein 4. THINK POSITIVE Keep your mind active by being sociable and continuing to learn References: Stay Strong: Four Ways to Beat the Frailty Risk [email or web address] upvag-ijv-tknfmwgmhr/ wlwa-fkdkhs-ytgc-ways -rf-fnnk-vcm-fra ilty-risk 09-14-2024 Viral infection (7 sources) COVID-19; Translations: [COVID-19 virus RNA test result positive at limit of detection] 12-16-2022 Episodic Past or Other Problems Problem Classification Problem Date Documented Da te Episodic/Chronic Abdominal pain (12 sources) Abdominal pain; Translations: [Unspecified abdominal pain] Onset: 07-24-2024 10-13-2022 Episodic Coronary atherosclerosis and other heart disease (2 sources) Presence of coronary angioplasty implant and graft; Translations: [Presence of coronary angioplasty implant and graft] Onset: 03-26-2022 Episodic Unclassified (1 source) COUGH, UNSPECIFIED; Translations: [COUGH, UNSPECIFIED] Onset: 02-28-2022 Results Test Name Value Interpretation Reference Range Facility Hemoglobinon 09-14-2024 Hemoglobin (Bld) [Mass/Vol] 10.3 g/dL Low 13.0 - 17.0 g/dL [facility] Hemoglobin (Bld) [Mass/Vol]o n 09-14-2024 Interpretation and review of laboratory results Abnormal [facility] Hemoglobin [Mass/volume] in BloodOrdered By: Morgan Morrell on 09-14-2024 Hemoglobin (Bld) [Mass/Vol] 10.3 g/dL Low 13.0-17.0 [facility] Comment on above: Result Comment: PERF ORMED BY: [place] [address] PATHOLOGIST MANAGER OF CASE CANDIS BHATTI M.D. Performed By: #### H GB #### [address] Alanine aminotransferase [En zymatic activity/volume] in Serum or PlasmaOrdered By: Colby Malagon on 09-13-2024 ALT [Catalytic activity/Vol] 34 U/L Normal 7-52 [facility] Comment on above: Performed By: #### H GB #### [place] [address] [place] Albumin [Mass/volume] in Ser um or Plasma by Bromocresol green (BCG) dye binding methoOrdered By: Colby Malagon on 09-13-2024 Albumin BCG dye [Mass/Vol] 4.1 g/dL 3.5-5.7 [facility] Alkaline phosphatase [Enzyma tic activity/volume] in Serum or PlasmaOrdered By: Colby Malagon on 09-13-2024 ALP [Catalytic activity/Vol] 62 U/L Normal 34-104 [facility] Comment on above: Performed By: #### H GB #### [address] Aspartate aminotransferase [ Enzymatic activity/volume] in Serum or PlasmaOrdered By: Colby Malagon on 09-13-2024 AST [Catalytic activity/Vol] 28 U/L Normal 13-39 [facility] Comment on above: Performed By: #### H GB #### [facility] [address] Basic Metabolic Panelon 08-22 Creatinine Clr Calc Pharmacy 75.78 Normal [facility] Comment on above: Result Comment: PERF ORMED BY: [place] [address] PATHOLOGIST MANAGER OF CASE CANDIS BHATTI M.D. Performed By: #### H GB #### [address] GFR/1.73 sq M.predicted MDRD (S/P/Bld) [Vol rate/Area] mL/min/{1.73_m2} Normal [facility] Comment on above: Performed By: #### H GB #### [address] Basic metabolic 1998 panelon 09-13-2024 Anion gap [Moles/Vol] 11.1 mmol/L 6.0 - 15.0 [facility] Calcium [Mass/Vol] 8 mg/dL Low 8.6 - 10. 3 mg/dL [facility] Chloride [Moles/Vol] 105 mmol/L 98 - 10 7 mmol/L [facility] CO2 [Moles/Vol] 24.3 mmol/L 21.0 - 31.0 mmol/L [facility] Creatinine (U) [Mass/Vol] 1.1 mg/dL 0.70 - 1.30 mg/dL [facility] CREATININE CLR CALC PHARMACY 75.78 [facility] ESTIMATED GFR [facility] Glucose [Mass/Vol] 155 mg/dL High 70 - 100 mg/dL [facility] Comment on above: Random Glucose Refer ence Range is dependent on time and content of last meal. Glucose of more than 200 mg/dL in a nonstressed, ambulatory subject supports the diagnosis of Diabetes Mellitus. ADA recommended reference range Interpretation and review of laboratory results [facility]normal [facility] Potassium [Moles/Vol] 4.4 mmol/L 3.5 - 5.1 mmol/L [facility] Sodium [Moles/Vol] 136 mmol/L 136 - 145 mmol/L [facility] Urea nitrogen [Mass/Vol] 20 mg/dL 7 - 25 mg/dL [facility] Basophils [#/volume] in Bloo d by Automated countOrdered By: Adam Ashley on 09-13-2024 Basophils (Bld) [#/Vol] 0.0 10*3/uL Normal 0.0-0.2 [facility] Comment on above: Result Comment: PERF ORMED BY: [place] [address] PATHOLOGIST MANAGER OF CASE CANDIS BHATTI M.D. Performed By: #### C BC #### [address] Basophils/100 leukocytes in Blood by Automated countOrdered By: Adam Ashley on 09-13-2024 Basophils/100 WBC (Bld) 0.3 % Normal . [facility] Comment on above: Performed By: #### C BC #### [address] Bilirubin.total [Mass/volume ] in Serum or PlasmaOrdered By: Colby Malagon on 09-13-2024 Bilirubin [Mass/Vol] 0.5 mg/dL Normal 0.3-1.0 [facility] Comment on above: Performed By: #### H GB #### [address] CBC W Auto Differential pane l (Bld)on 09-13-2024 Basophils (Bld) [#/Vol] 0 10*3/uL 0.0 - 0.2 10*3/uL [facility] Basophils/100 WBC Manual cnt (Syn fld) 0.3 % . [facility] Eosinophils (Bld) [#/Vol] 0 10*3/uL 0.0 - 0.45 10*3/uL [facility] Eosinophils/100 WBC Manual cnt (Syn fld) 0 % . [facility] Erythrocyte distribution width (RBC) [Ratio] 13.1 % 12.0 - 14.8 % [facility] Hematocrit (Bld) [Volume fraction] 31.3 % Low 38.8 - 50.0 % [facility] Hemoglobin (Bld) [Mass/Vol] 11 g/dL Low 13.0 - 17.0 g/dL [facility] Interpretation and review of laboratory results Abnormal [facility] Lymphocytes (Bld) [#/Vol] 1.3 10*3/uL 1.00 - 4.8 10*3/uL [facility] Lymphocytes/100 WBC Manual cnt (Syn fld) 11.1 % . [facility] MCH (RBC) [Entitic mass] 31.8 pg 27.5 - 35.2 pg [facility] MCHC (RBC) [Mass/Vol] 35 g/dL 32.5 - 35.6 g/dL [facility] MCV (RBC) [Entitic vol] 90.8 fL 83.5 - 101 fL [facility] Monocytes (Bld) [#/Vol] 0.6 10*3/uL 0.0 - 0.8 10*3/uL [facility] Monocytes+Macrophages/ 100 WBC Manual cnt (Syn fld) 4.8 % . [facility] Neutrophils (Bld) [#/Vol] 10.1 10*3/uL High 1.8 - 7.7 10*3/uL [facility] Neutrophils/100 WBC Manual cnt (Syn fld) 83.8 % . [facility] NRBC 0 /100{WBC} 0 - 0.5 /100{WBC} [facility] Platelet mean volume (Bld) [Entitic vol] 7.1 fL 6.6 - 10.1 fL [facility] Platelets (Bld) [#/Vol] 183 10*3/uL 150 - 450 10*3/uL [facility] RBC LM.HPF (Urine sed) [#/Area] 3.45 10*6/uL Low 3.90 - 5.60 10*6/uL [facility] WBC (Bld) [#/Vol] 12.1 10*3/uL High 4.1 - 10.5 10*3/uL [facility] WBC LM.HPF (Urine sed) [#/Area] 12.1 [CFU]/mL High 4.1 - 10.5 [CFU]/mL [facility] CT abdomen pelvis w thalia CT abdomen pelvis w [facility] [place] [id number] CT Scan Report Signed Patient: Deion Dumont MR#: [id number] : 1960 Acct:[id number] Age/Sex: 63 / M ADM Date: 09/13/24 Loc: Room: 1E3323-4 Type: DIS IN Attending Dr: Adam Ashley MD Copies to: MD Colby Wu DO Ordering Provider: Colby Malagon DO Date of Service: 09/13/24 CT/CT abdomen pelvis w con: abd pain, syncope post aron CT ABDOMEN AND PELVIS WITH CONTRAST COMPARISON: 10/05/2022 CLINICAL DATA: Chest and right shoulder pain. Cholecystectomy today. Spiral images were obtained through the abdomen and pelvis following 90 mL Isovue-300. This CT exam was performed using one or more following dose reduction techniques: Automated exposure control, adjustment of the mA and/or kV according to patient size, or use of iterative reconstruction technique. Limited cuts through the lung bases show a calcified right lower lobe nodule on the first image. There is developing bibasilar atelectasis. There is fatty infiltration of the liver. Suspected left hepatic cysts are again seen. There is interval cholecystectomy. There is mild intra and extrahepatic biliary dilatation. No common duct stones are noted. There are no significant fluid collections at the gallbladder fossa however there is a small amount of perihepatic hepatic fluid and minimal free air. In addition, there is a large hematoma in the subhepatic region measuring approximately 15 cm in greatest dimension. There is surrounding fibrofatty stranding and a small amount of blood that extends down the paracolic gutter to the right pelvis. The fluid is slightly hyperdense and may be blood. The spleen, pancreas and adrenal glands show no acute findings. There are symmetric renal nephrograms, without hydronephrosis. There is a small amount of right perinephric fluid. Atherosclerotic plaque is present at the aorta, iliac and some of the visceral arteries. No enlarged lymph nodes are identified. There is a small amount of additional free air as well as air trocar at sites within the abdominal wall. The small bowel loops are not distended. There is stool within the colon, greater on the right. There are left-sided colonic diverticula. Slight levoscoliotic curvature and degenerative changes are present at the spine. Images through the pelvis show normal caliber small bowel loops. The appendix is not definitely seen. The distal colon is underdistended. There are additional descending and sigmoid diverticula, without associated active inflammation. The prostate is top normal in size and contains a few calcifications. The urinary bladder is unremarkable. There is dependent low density free pelvic fluid. CT/CT abdomen pelvis w con IMPRESSION: BIBASILAR ATELECTASIS. INTERVAL CHOLECYSTECTOMY WITH MILD BILIARY PROMINENCE HOWEVER NO CHOLEDOCHOLITHIASIS. RIGHT UPPER QUADRANT MESENTERIC HEMATOMA WITH SURROUNDING INFLAMMATION AND MILD FREE FLUID, SOME OF WHICH COULD BE HEMOPERITONEUM. FATTY LIVER AND LEFT HEPATIC CYSTS. DIVERTICULOSIS. Impression dictated by: Martha Barrientos M.D. 09/13/2024 8:19 AM Dictation Location: [place] [address] Transcribed By: [facility] 09/13/24818 Dictated By: Martha Barrientos MD 09/13/24805 Signed By: 09/13/24818 Normal [facility] Calcium [Mass/volume] in Ser um or PlasmaOrdered By: Adam Ashley on 09-13-2024 Calcium [Mass/Vol] 8.0 mg/dL Low 8.6-10.3 [facility] Comment on above: Performed By: #### H GB #### [address] Carbon dioxide, total [Moles /volume] in Serum or PlasmaOrdered By: Adam Ashley on 09-13-2024 CO2 [Moles/Vol] 24.3 mmol/L Normal 21.0-31.0 [facility] Comment on above: Performed By: #### H GB #### [facility] [address] Chloride [Moles/volume] in S luci or PlasmaOrdered By: Adam Ashley on 09-13-2024 Chloride [Moles/Vol] 105 mmol/L Normal 98-107 [facility] Comment on above: Performed By: #### H GB #### [address] Complete Blood Count Auto Di ffon 09-13-2024 Hematocrit (Bld) [Volume fraction] 31.3 % Low 38.8-50.0 [facility] Comment on above: Performed By: #### C BC #### [address] Hemoglobin (Bld) [Mass/Vol] 11.0 g/dL Low 13.0-17.0 [facility] Comment on above: Performed By: #### C BC #### [address] Mean Corpuscular HGB Conc 35.0 g/dL Normal 32.5-35.6 [facility] Comment on above: Performed By: #### C BC #### [address] NRBC% 0.0 /100{WBC} Normal 0-0.5 [facility] Comment on above: Performed By: #### C BC #### [address] White Blood Count 12.1 [CFU]/mL High 4.1-10.5 [facility] Comment on above: Performed By: #### C BC #### [address] Basophils (Bld) [#/Vol] 0.0 10*3/uL Normal 0.0-0.2 [facility] Comment on above: Result Comment: PERF ORMED BY: [place] [address] PATHOLOGIST MANAGER OF CASE CANDIS BHATTI M.D. Performed By: #### H GB #### [place] [address] [place] Basophils/100 WBC (Bld) 0.3 % Normal . [facility] Comment on above: Performed By: #### H GB #### [place] [address] [place] Eosinophils (Bld) [#/Vol] 0.0 10*3/uL Normal 0.0-0.45 [facility] Comment on above: Performed By: #### H GB #### [place] [address] [place] Eosinophils/100 WBC (Bld) 0.0 % Normal . [facility] Comment on above: Performed By: #### H GB #### [address] Erythrocyte distribution width (RBC) [Ratio] 13.4 % Normal 12.0-14.8 [facility] Comment on above: Performed By: #### H GB #### [address] Hematocrit (Bld) [Volume fraction] 34.9 % Low 38.8-50.0 [facility] Comment on above: Performed By: #### H GB #### [address] Hemoglobin (Bld) [Mass/Vol] 12.3 g/dL Low 13.0-17.0 [facility] Comment on above: Performed By: #### H GB #### [address] Lymphocytes (Bld) [#/Vol] 1.1 10*3/uL Normal 1.00-4.8 [facility] Comment on above: Performed By: #### H GB #### [address] Lymphocytes/100 WBC (Bld) 8.6 % Normal . [facility] Comment on above: Performed By: #### H GB #### [address] MCH (RBC) [Entitic mass] 31.9 pg Normal 27.5-35.2 [facility] Comment on above: Performed By: #### H GB #### [address] MCV (RBC) [Entitic vol] 90.4 fL Normal 83.5-101 [facility] Comment on above: Performed By: #### H GB #### [address] Mean Corpuscular HGB Conc 35.3 g/dL Normal 32.5-35.6 [facility] Comment on above: Performed By: #### H GB #### [address] Monocytes (Bld) [#/Vol] 0.4 10*3/uL Normal 0.0-0.8 [facility] Comment on above: Performed By: #### H GB #### [address] Monocytes/100 WBC (Bld) 17.10 % Normal 0.00-20.00 [facility] Comment on above: Performed By: #### H GB #### [place] [address] [place] Monocytes/100 WBC (Bld) 3.3 % Normal . [facility] Comment on above: Performed By: #### H GB #### [address] Neutrophils (Bld) [#/Vol] 10.7 10*3/uL High 1.8-7.7 [facility] Comment on above: Performed By: #### H GB #### [address] Neutrophils/100 WBC (Bld) 87.8 % Normal . [facility] Comment on above: Performed By: #### H GB #### [address] NRBC% 0.0 /100{WBC} Normal 0-0.5 [facility] Comment on above: Performed By: #### H GB #### [address] Platelet mean volume (Bld) [Entitic vol] 7.1 fL Normal 6.6-10.1 [facility] Comment on above: Performed By: #### H GB #### [place] [address] [place] Platelets (Bld) [#/Vol] 231 10*3/uL Normal 150-450 [facility] Comment on above: Performed By: #### H GB #### [place] [address] [place] RBC (Bld) [#/Vol] 3.86 10*6/uL Low 3.90-5.60 [facility] Comment on above: Performed By: #### H GB #### [address] WBC (Bld) [#/Vol] 12.2 10*3/uL High 4.1-10.5 [facility] Comment on above: Performed By: #### H GB #### [address] White Blood Count 12.2 [CFU]/mL High 4.1-10.5 [facility] Comment on above: Performed By: #### H GB #### [address] Comprehensive Metabolic Pane phill 09-13-2024 Albumin [Mass/Vol] 4.1 g/dL Normal 3.5-5.7 [facility] Comment on above: Performed By: #### H GB #### [address] Anion gap [Moles/Vol] 10.0 mmol/L Normal 6.0-15.0 [facility] Comment on above: Performed By: #### H GB #### [address] Calcium [Mass/Vol] 8.6 mg/dL Normal 8.6-10.3 [facility] Comment on above: Performed By: #### H GB #### [address] Chloride [Moles/Vol] 103 mmol/L Normal 98-107 [facility] Comment on above: Performed By: #### H GB #### [address] CO2 [Moles/Vol] 26.7 mmol/L Normal 21.0-31.0 [facility] Comment on above: Performed By: #### H GB #### [address] Creatinine [Mass/Vol] 1.30 mg/dL Normal 0.70-1.30 [facility] Comment on above: Performed By: #### H GB #### [address] Creatinine Clr Calc Pharmacy 63.38 Normal [facility] Comment on above: Result Comment: PERF ORMED BY: [place] [address] PATHOLOGIST MANAGER OF CASE CANDIS BHATTI M.D. Performed By: #### H GB #### [place] [address] [place] GFR/1.73 sq M.predicted MDRD (S/P/Bld) [Vol rate/Area] mL/min/{1.73_m2} Normal [facility] Comment on above: Performed By: #### H GB #### [address] Glucose [Mass/Vol] 199 mg/dL High 70-100 [facility] Comment on above: Result Comment: Jbph[facility] Glucose Reference Range is dependent on time and content of last meal. Glucose of more than 200 mg/dL in a nonstressed, ambulatory subject supports the diagnosis of Diabetes Mellitus. ADA recommended reference range Performed By: #### H GB #### [address] Potassium [Moles/Vol] 4.7 mmol/L Normal 3.5-5.1 [facility] Comment on above: Performed By: #### H GB #### [place] [address] [place] Sodium [Moles/Vol] 135 mmol/L Low 136-145 [facility] Comment on above: Performed By: #### H GB #### [address] Urea nitrogen [Mass/Vol] 21 mg/dL Normal 7-25 [facility] Comment on above: Performed By: #### H GB #### [place] [address] [place] Creatinine [Mass/volume] in Serum or PlasmaOrdered By: Adam Ashley on 09-13-2024 Creatinine [Mass/Vol] 1.10 mg/dL Normal 0.70-1.30 [facility] Comment on above: Performed By: #### H GB #### [facility] [address] [place] [address] ECG 12 lead ECGon 09-13-2024 ECG 12 lead ECG [facility] [place] [address] [place] [address] Electrocardiograph Report Signed Patient: Deion Dumont MR#: [id number] : 1960 Acct:[id number] Age/Sex: 63 / M ADM Date: 09/13/24 Loc: Room: [address] [place] [address] Type: ADM IN Attending Dr: Adam Ashley MD Ordering Provider: Colby Malagon DO Date of Service: 09/13/24 ECG/ECG 12 lead ECG: Syncope Copies to: Test Reason : Blood Pressure : 132/66 mmHG Vent. Rate : 88 BPM Atrial Rate : 88 BPM P-R Int : 172 ms QRS Dur : 84 ms QT Int : 362 ms P-R-T Axes : 71 -63 65 degrees QTcB Int : 438 ms Normal sinus rhythm Left axis deviation Pulmonary disease pattern Cannot rule out Inferior infarct (cited on or before 02-May-2012) Abnormal ECG When compared with ECG of 23-Jul-2024 21:01, No significant change was found Confirmed by COLBY MALAGON DO ([id number]) on 09/13/2024 2:56:25 AM Referred By: Electronically Signed By: COLBY MALAGON DO Transcribed By: MUS Signed By Colby Malagon DO 0256 Normal [facility] Eosinophils [#/volume] in Bl ood by Automated countOrdered By: Adam Ashley on 09-13-2024 Eosinophils (Bld) [#/Vol] 0.0 10*3/uL Normal 0.0-0.45 [facility] Comment on above: Performed By: #### C BC #### [place] [address] [place] Eosinophils/100 leukocytes i n Blood by Automated countOrdered By: Adam Ashley on 09-13-2024 Eosinophils/100 WBC (Bld) 0.0 % Normal . [facility] Comment on above: Performed By: #### C BC #### [facility] [address] Erythrocyte distribution wid th [Ratio] by Automated countOrdered By: Adam Ashley on 09-13-2024 Erythrocyte distribution width (RBC) [Ratio] 13.1 % Normal 12.0-14.8 [facility] Comment on above: Performed By: #### C BC #### [facility] [address] Erythrocytes [#/volume] in B lood by Automated countOrdered By: Adam Ashley on 09-13-2024 RBC (Bld) [#/Vol] 3.45 10*6/uL Low 3.90-5.60 [facility] Comment on above: Performed By: #### C BC #### [facility] [address] Glucose [Mass/volume] in Ser um or PlasmaOrdered By: Adam Ashley on 09-13-2024 Glucose [Mass/Vol] 155 mg/dL High 70-100 [facility] Comment on above: ADA recommended refe rence rangeRandom Glucose Reference Range is dependent on time and content of last meal. Glucose of more than 200 mg/dL in a nonstressed, ambulatory subject supports the diagnosis of Diabetes Mellitus. Result Comment: Jbph[facility] om Glucose Reference Range is dependent on time and content of last meal. Glucose of more than 200 mg/dL in a nonstressed, ambulatory subject supports the diagnosis of Diabetes Mellitus. ADA recommended reference range Performed By: #### H GB #### [facility] [address] Hematocrit [Volume Fraction] of Blood by Automated countOrdered By: Adam Ashley on 09-13-2024 Hematocrit (Bld) [Volume fraction] 30.4 % Low 38.8-50.0 [facility] Comment on above: Result Comment: PERF ORMED BY: [place] [address] PATHOLOGIST MANAGER OF CASE CANDIS BHATTI M.D. Performed By: #### H H #### [address] Hemoglobinon 09-13-2024 Hemoglobin (Bld) [Mass/Vol] 10.1 g/dL Low 13.0 - 17.0 g/dL [facility] Hemoglobin (Bld) [Mass/Vol] 10.1 g/dL Low 13.0-17.0 [facility] Comment on above: Result Comment: PERF ORMED BY: [place] [address] PATHOLOGIST MANAGER OF CASE CANDIS BHATTI M.D. Performed By: #### H GB #### [address] Hemoglobin (Bld) [Mass/Vol]o n 09-13-2024 Interpretation and review of laboratory results Abnormal [facility] Hematocrit (Bld) [Volume fraction] 30.4 % Low 38.8 - 50.0 % [facility] Interpretation and review of laboratory results Abnormal [facility] Hemoglobin and Hematocriton 09-13-2024 Hemoglobin (Bld) [Mass/Vol] 10.4 g/dL Low 13.0-17.0 [facility] Comment on above: Performed By: #### H H #### [address] Hemoglobin and hematocrit, b loodon 09-13-2024 Hemoglobin (Bld) [Mass/Vol] 10.4 g/dL Low 13.0 - 17.0 g/dL [facility] Leukocytes [#/volume] correc juan for nucleated erythrocytes in Blood by Automated counOrdered By: Adam Ashley on 09-13-2024 WBC corrected for nucl RBC Auto (Bld) [#/Vol] 12.1 10*3/uL High 4.1-10.5 [facility] Leukocytes [#/volume] in Blo od by Automated countOrdered By: Adam Ashley on 09-13-2024 WBC (Bld) [#/Vol] 12.1 10*3/uL High 4.1-10.5 [facility] Comment on above: Performed By: #### C BC #### [address] Lymphocytes [#/volume] in Bl ood by Automated countOrdered By: Adam Ashley on 09-13-2024 Lymphocytes (Bld) [#/Vol] 1.3 10*3/uL Normal 1.00-4.8 [facility] Comment on above: Performed By: #### C BC #### [address] Lymphocytes/100 leukocytes i n Blood by Automated countOrdered By: Adam Ashley on 09-13-2024 Lymphocytes/100 WBC (Bld) 11.1 % Normal . [facility] Comment on above: Performed By: #### C BC #### [address] MCH [Entitic mass] by Automa juan countOrdered By: Adam Ashley on 09-13-2024 MCH (RBC) [Entitic mass] 31.8 pg Normal 27.5-35.2 [facility] Comment on above: Performed By: #### C BC #### [address] MCHC Auto (RBC) [Mass/Vol]Or dered By: Adam Ashley on 09-13-2024 MCHC (RBC) [Mass/Vol] 35.0 g/dL 32.5-35.6 [facility] MCV [Entitic volume] by Auto mated countOrdered By: Adam Ashley on 09-13-2024 MCV (RBC) [Entitic vol] 90.8 fL Normal 83.5-101 [facility] Comment on above: Performed By: #### C BC #### [address] Monocyte distribution width [Entitic volume] in Blood by AutomatedOrdered By: Colby Malagon on 09-13-2024 Monocyte distribution width Auto (Bld) [Entitic vol] 17.10 % 0.00-20.00 [facility] Monocytes [#/volume] in Bloo d by Automated countOrdered By: Adam Ashley on 09-13-2024 Monocytes (Bld) [#/Vol] 0.6 10*3/uL Normal 0.0-0.8 [facility] Comment on above: Performed By: #### C BC #### [facility] [address] [place] [address] [place] Monocytes/100 leukocytes in Blood by Automated countOrdered By: Adam Ashley on 09-13-2024 Monocytes/100 WBC (Bld) 4.8 % Normal . [facility] Comment on above: Performed By: #### C BC #### [facility] [address] [place] [address] [place] Neutrophils [#/volume] in Bl ood by Automated countOrdered By: Adam Ashley on 09-13-2024 Neutrophils (Bld) [#/Vol] 10.1 10*3/uL High 1.8-7.7 [facility] Comment on above: Performed By: #### C BC #### [place] [address] [place] Neutrophils/100 leukocytes i n Blood by Automated countOrdered By: Adam Ashley on 09-13-2024 Neutrophils/100 WBC (Bld) 83.8 % Normal . [facility] Comment on above: Performed By: #### C BC #### [address] No Panel InformationOrdered By: Adam Ashley on 09-13-2024 Estimated GFR (CKD-EPI) > 60.0 mL/Min [facility] Creatinine Clearance (Chem 75.78 [facility] Nucleated erythrocytes [Pres ence] in Blood by Automated countOrdered By: Adam Ashley on 09-13-2024 Nucleated RBC Auto Ql (Bld) 0.0 /100{WBC} 0-0.5 [facility] Platelet mean volume [Entiti c volume] in Blood by Automated countOrdered By: Adam Ashley on 09-13-2024 Platelet mean volume (Bld) [Entitic vol] 7.1 fL Normal 6.6-10.1 [facility] Comment on above: Performed By: #### C BC #### [address] Platelets [#/volume] in Bloo d by Automated countOrdered By: Adam Ashley on 09-13-2024 Platelets (Bld) [#/Vol] 183 10*3/uL Normal 150-450 [facility] Comment on above: Performed By: #### C BC #### [address] Potassium [Moles/volume] in Serum or PlasmaOrdered By: Adam Ashley on 09-13-2024 Potassium [Moles/Vol] 4.4 mmol/L Normal 3.5-5.1 [facility] Comment on above: Performed By: #### H GB #### [address] Protein [Mass/volume] in Ser um or PlasmaOrdered By: Colby Malagon on 09-13-2024 Protein [Mass/Vol] 6.3 g/dL Low 6.4-8.9 [facility] Comment on above: Performed By: #### H GB #### [address] Serum globulin measurement b y calculation (mass/volume)Ordered By: Colby Malagon on 09-13-2024 Globulin (S) [Mass/Vol] 2.2 g/dL [facility] Comment on above: Performed By: #### H GB #### [address] Serum or plasma albumin/glob ulin mass ratioOrdered By: Colby Malagon on 09-13-2024 Albumin/Globulin [Mass ratio] 1.9 {ratio} [facility] Comment on above: Performed By: #### H GB #### [address] Serum or plasma anion gap de terminationOrdered By: Adam Ashley on 09-13-2024 Anion gap [Moles/Vol] 11.1 mmol/L Normal 6.0-15.0 [facility] Comment on above: Performed By: #### H GB #### [facility] [address] [place] [address] [place] Sodium [Moles/volume] in Ser um or PlasmaOrdered By: Adam Ashley on 09-13-2024 Sodium [Moles/Vol] 136 mmol/L Normal 136-145 [facility] Comment on above: Performed By: #### H GB #### [facility] [address] Urea nitrogen [Mass/volume] in Serum or PlasmaOrdered By: Adam Ashley on 09-13-2024 Urea nitrogen [Mass/Vol] 20 mg/dL Normal 7-25 [facility] Comment on above: Performed By: #### H GB #### [address] Alkaline phosphataseon 09-12 ALP [Catalytic activity/Vol] 75 U/L 34 - 104 U/L [facility] Alkaline phosphatase [Enzyma tic activity/volume] in Serum or PlasmaOrdered By: Morgan Morrell on 09-12-2024 ALP [Catalytic activity/Vol] 75 U/L Normal 34-104 [facility] Comment on above: Performed By: #### C BC, BMP #### [place] [address] [place] Amylaseon 09-12-2024 Amylase [Catalytic activity/Vol] 30 U/L 29 - 103 U/L [facility] Amylase [Enzymatic activity/ volume] in Serum or PlasmaOrdered By: Morgan Morrell on 09-12-2024 Amylase [Catalytic activity/Vol] 30 U/L Normal 29-103 [facility] Comment on above: Performed By: #### C BC, BMP #### [facility] [address] [place] [address] [place] Bilirubin, Total and Directo n 09-12-2024 Bilirubin,Indirect 0.5 mg/dL Normal [facility] Comment on above: Performed By: #### C BC, BMP #### [facility] [address] [place] [address] [place] Bilirubin.indirect [Mass/Vol] 0.10 mg/dL Normal 0.03-0.18 [facility] Comment on above: Performed By: #### Rut ROCHA, BMP #### [facility] [address] Bilirubin, total and directo n 09-12-2024 Bilirubin [Mass/Vol] 0.6 mg/dL 0.3 - 1 .0 mg/dL [facility] Bilirubin.indirect [Mass/Vol] 0.1 mg/dL 0.03 - 0.18 mg/dL [facility] Magnesium [Mass/Vol] 0.5 mg/dL [facility] Bilirubin.direct [Mass/volum e] in Serum or PlasmaOrdered By: Morgan Morrell on 09-12-2024 Bilirubin.direct [Mass/Vol] 0.10 mg/dL 0.03-0.18 [facility] Bilirubin.total [Mass/volume ] in Serum or PlasmaOrdered By: Morgan Morrell on 09-12-2024 Bilirubin [Mass/Vol] 0.6 mg/dL Normal 0.3-1.0 [facility] Comment on above: Performed By: #### Rut ROCHA, BMP #### [facility] [address] [place] [id number] [facility] Phill 09-12-2024 L ------ Specimen: [id number] Received: 09/12/24 Status: PATT Mckinney Num: [id number] Spec Type: Surgical Subm Dr: Morgan Morrell DO Tissues: A Gallbladder (GALLBLADDER) Procedures: GREER, Gross/Micro L3 Age/ Patient Sex Location Account Attending Physician Deion Dumont 63/M [place] [id number] Morgan Morrell DO SPEC NUM: [id number] RECD: 09/12/241239 STATUS: PATT MCKINNEY NUM: [id number] JOSÉ LUIS: 09/12/24-[address]: Morgan Morrell DO ENTERED: 09/12/24-1240 ALEX MEDINA: [place]IR[place]IE TYPE: Surgical DEPT: S ENTERED BY: [id number] RECV BY: [id number] ORDERED: HE, Gross/Micro L3 ORDERED: HE, Gross/Micro L3 Pathological Diagnosis Gallbladder: Chronic cholecystitis with cholelithiasis. 88 305 Clinical Information Calculus cholecystitis Gross Description Part A is received in formalin labeled with the patients name, date of , and gallbladder is a disrupted gallbladder, 9 x 3 x 2 cm with a 0.3 cm cystic duct closed by a metallic clip. A periductal lymph node is not identified. The serosa is manzo-blue, smooth and glistening; the hepatic bed is rough and irregular with a 1.4 cm in greatest dimension transmural defect noted in the body. The specimen is opened to reveal 2 mora-green, granular calculi, 1.7 and 3 cm in greatest dimension with an adherent mora-green viscous bile. The mucosa is mora-pink and trabecular. The wall of the gallbladder ranges from 0.1 to 0.3 cm in thickness. Survey Technician sections are submitted in a single cassette. (1, , [id number]) COLETTE Specimen: [id number] Received: 09/12/24 Status: PATT Mckinney Num: [id number] Spec Type: Surgical Subm Dr: Morgan Morrell DO Tissues: A Gallbladder (GALLBLADDER) Procedures: James BUTTERFIELD/Evi L3 Patient: Deion Dumont [id number] (Continued) Signed (signature on file) Candis Bhatti MD 09/14/24 1102 Normal [facility] Lipaseon 09-12-2024 Lipase [Catalytic activity/Vol] 25 U/L 11.0 - 82.0 U/L [facility] Lipase [Enzymatic activity/v olume] in Serum or PlasmaOrdered By: Morgan Morrell on 09-12-2024 Lipase [Catalytic activity/Vol] 25.0 U/L Normal 11.0-82.0 [facility] Comment on above: Result Comment: PERF ORMED BY: [place] [address] PATHOLOGIST MANAGER OF CASE CANDIS BHATTI M.D. Performed By: #### H GB #### [address] No Panel Informationon 09-12 [facility] Serum or plasma non-glucuron idated bilirubin measurement (mass/volume)Ordered By: Morgan Morrell on 09-12-2024 Bilirubin.indirect [Mass/Vol] 0.5 mg/dL [facility] Basic Metabolic Panelon GFR/1.73 sq M.predicted MDRD (S/P/Bld) [Vol rate/Area] mL/min/{1.73_m2} Normal [facility] Comment on above: Performed By: #### C BC, BMP #### [facility] [address] [place] [address] Basic metabolic 1998 panelon 08-29-2024 Anion gap [Moles/Vol] 8.9 mmol/L 6.0 - 15.0 meq/L [facility] Calcium [Mass/Vol] 9.2 mg/dL 8.6 - 10. 3 mg/dL [facility] Chloride [Moles/Vol] 107 mmol/L 98 - 10 7 mmol/L [facility] CO2 [Moles/Vol] 28.4 mmol/L 21.0 - 31.0 mmol/L [facility] Creatinine (U) [Mass/Vol] 1.07 mg/dL 0.70 - 1.30 mg/dL [facility] ESTIMATED GFR mL/Min [facility] Glucose [Mass/Vol] 110 mg/dL High 70 - 100 mg/dL [facility] Comment on above: Random Glucose Refer ence Range is dependent on time and content of last meal. Glucose of more than 200 mg/dL in a nonstressed, ambulatory subject supports the diagnosis of Diabetes Mellitus. ADA recommended reference range Interpretation and review of laboratory results Abnormal [facility] Potassium [Moles/Vol] 4.3 mmol/L 3.5 - 5.1 mmol/L [facility] Sodium [Moles/Vol] 140 mmol/L 136 - 145 mmol/L [facility] Urea nitrogen [Mass/Vol] 16 mg/dL 7 - 25 mg/dL [facility] Basophils Auto (Bld) [#/Vol] Ordered By: Morgan Morrell on 08-29-2024 Basophils (Bld) [#/Vol] Automated basophil count 0.0-0.2 [facility] Basophils [#/volume] in Bloo d by Automated countOrdered By: Morgan Morrell on 08-29-2024 Basophils (Bld) [#/Vol] 0.1 10*3/uL Normal 0.0-0.2 [facility] Comment on above: Result Comment: PERF ORMED BY: [address] [place] [address] PATHOLOGIST MANAGER OF CASE CANDIS BHATTI M.D. Performed By: #### C JOSEFINA, BMP #### [facility] [address] [place] [address] Basophils/100 WBC Auto (Bld) Ordered By: Morgan Morrell on 08-29-2024 Basophils/100 WBC (Bld) Automated basophil % . [facility] Basophils/100 leukocytes in Blood by Automated countOrdered By: Morgan Morrell on 08-29-2024 Basophils/100 WBC (Bld) 1.1 % Normal . [facility] Comment on above: Performed By: #### C BC, BMP #### [facility] [address] [place] [address] CBC W Auto Differential pane l (Bld)on 08-29-2024 Basophils (Bld) [#/Vol] 0.1 10*3/uL 0.0 - 0.2 10*3/uL [facility] Basophils/100 WBC Manual cnt (Syn fld) 1.1 % . [facility] Eosinophils (Bld) [#/Vol] 0.1 10*3/uL 0.0 - 0.45 10*3/uL [facility] Eosinophils/100 WBC Manual cnt (Syn fld) 1.8 % . [facility] Erythrocyte distribution width (RBC) [Ratio] 13.3 % 12.0 - 14.8 % [facility] Hematocrit (Bld) [Volume fraction] 41.8 % 38.8 - 50.0 % [facility] Hemoglobin (Bld) [Mass/Vol] 14.4 g/dL 13.0 - 17.0 g/dL [facility] Lymphocytes (Bld) [#/Vol] 2.1 10*3/uL 1.00 - 4.8 10*3/uL [facility] Lymphocytes/100 WBC Manual cnt (Syn fld) 32.3 % . [facility] MCH (RBC) [Entitic mass] 31.4 pg 27.5 - 35.2 pg [facility] MCHC (RBC) [Mass/Vol] 34.4 g/dL 32.5 - 35.6 g/dL [facility] MCV (RBC) [Entitic vol] 91 fL 83.5 - 101 fL [facility] Monocytes (Bld) [#/Vol] 0.5 10*3/uL 0.0 - 0.8 10*3/uL [facility] Monocytes+Macrophages/ 100 WBC Manual cnt (Syn fld) 8 % . [facility] Neutrophils (Bld) [#/Vol] 3.7 10*3/uL 1.8 - 7.7 10*3/uL [facility] Neutrophils/100 WBC Manual cnt (Syn fld) 56.8 % . [facility] NRBC 0.2 /100{WBC} 0 - 0.5 /100{WBC} [facility] Platelet mean volume (Bld) [Entitic vol] 7.5 fL 6.6 - 10.1 fL [facility] Platelets (Bld) [#/Vol] 233 10*3/uL 150 - 450 10*3/uL [facility] RBC LM.HPF (Urine sed) [#/Area] 4.59 10*6/uL 3.90 - 5.60 10*6/uL [facility] WBC (Bld) [#/Vol] 6.5 10*3/uL 4.1 - 10.5 10*3/uL [facility] WBC LM.HPF (Urine sed) [#/Area] 6.5 10*3/uL 4.1 - 10.5 10*3/uL [facility] Calcium [Mass/volume] in Ser um or PlasmaOrdered By: Morgan Morrell on 08-29-2024 Calcium [Mass/Vol] Calcium [Mass/volume ] in Serum or Plasma 8.6-10.3 [facility] Calcium [Mass/Vol] 9.2 mg/dL Normal 8.6-10.3 [facility] Comment on above: Result Comment: PERF ORMED BY: [place] [address] PATHOLOGIST MANAGER OF CASE CANDIS BHATTI M.D. Performed By: #### C BC, BMP #### [address] Carbon dioxide, total [Moles /volume] in Serum or PlasmaOrdered By: Morgan Morrell on 08-29-2024 CO2 [Moles/Vol] Carbon dioxide, tota l [Moles/volume] in Serum or Plasma 21.0-31.0 [facility] CO2 [Moles/Vol] 28.4 mmol/L Normal 21.0-31.0 [facility] Comment on above: Performed By: #### C BC, BMP #### [facility] [address] [place] [address] Chloride [Moles/volume] in S luci or PlasmaOrdered By: Morgan Morrell on 08-29-2024 Chloride [Moles/Vol] Chloride [Moles/vol ume] in Serum or Plasma 98-107 [facility] Chloride [Moles/Vol] 107 mmol/L Normal 98-107 [facility] Comment on above: Performed By: #### C BC, BMP #### [address] Complete Blood Count Auto Di ffon 08-29-2024 Mean Corpuscular HGB Conc 34.4 g/dL Normal 32.5-35.6 [facility] Comment on above: Performed By: #### C JOSEFINA, BMP #### [facility] [address] NRBC% 0.2 /100{WBC} Normal 0-0.5 [facility] Comment on above: Performed By: #### C JOSEFINA, BMP #### [facility] [address] [place] [address] Creatinine [Mass/volume] in Serum or PlasmaOrdered By: Morgan Morrell on 08-29-2024 Creatinine [Mass/Vol] Creatinine [Mass/v olume] in Serum or Plasma 0.70-1.30 [facility] Creatinine [Mass/Vol] 1.07 mg/dL Normal 0.70-1.30 [facility] Comment on above: Performed By: #### C JOSEFINA, BMP #### [facility] [address] [place] [address] Eosinophils Auto (Bld) [#/Vo l]Ordered By: Morgan Morrell on 08-29-2024 Eosinophils (Bld) [#/Vol] Automated eosinophil count 0.0-0.45 [facility] Eosinophils [#/volume] in Bl ood by Automated countOrdered By: Morgan Morrell on 08-29-2024 Eosinophils (Bld) [#/Vol] 0.1 10*3/uL Normal 0.0-0.45 [facility] Comment on above: Performed By: #### C JOSEFINA, BMP #### [facility] [address] [place] [address] [place] Eosinophils/100 WBC Auto (Bl d)Ordered By: Morgan Morrell on 08-29-2024 Eosinophils/100 WBC (Bld) Automated eosinophil % . [facility] Eosinophils/100 leukocytes i n Blood by Automated countOrdered By: Morgan Morrell on 08-29-2024 Eosinophils/100 WBC (Bld) 1.8 % Normal . [facility] Comment on above: Performed By: #### C JOSEFINA, BMP #### [address] Erythrocyte distribution wid th Auto (RBC) [Ratio]Ordered By: Morgan Morrell on 08-29-2024 Erythrocyte distribution width (RBC) [Ratio] Erythrocyte distribution width [Ratio] by Automated count 12.0-14.8 [facility] Erythrocyte distribution wid th [Ratio] by Automated countOrdered By: Morgan Morrell on 08-29-2024 Erythrocyte distribution width (RBC) [Ratio] 13.3 % Normal 12.0-14.8 [facility] Comment on above: Performed By: #### C JOSEFINA, BMP #### [facility] [address] Erythrocytes [#/volume] in B lood by Automated countOrdered By: Morgan Morrell on 08-29-2024 RBC (Bld) [#/Vol] 4.59 10*6/uL Normal 3.90-5.60 [facility] Comment on above: Performed By: #### C JOSEFINA, BMP #### [address] Glucose [Mass/volume] in Ser um or PlasmaOrdered By: Morgan Morrell on 08-29-2024 Glucose [Mass/Vol] Glucose [Mass/volume ] in Serum or Plasma High 70-100 [facility] Comment on above: ADA recommended refe rence rangeRandom Glucose Reference Range is dependent on time and content of last meal. Glucose of more than 200 mg/dL in a nonstressed, ambulatory subject supports the diagnosis of Diabetes Mellitus. Glucose [Mass/Vol] 110 mg/dL High 70-100 [facility] Comment on above: ADA recommended refe rence rangeRandom Glucose Reference Range is dependent on time and content of last meal. Glucose of more than 200 mg/dL in a nonstressed, ambulatory subject supports the diagnosis of Diabetes Mellitus. Result Comment: [facility] om Glucose Reference Range is dependent on time and content of last meal. Glucose of more than 200 mg/dL in a nonstressed, ambulatory subject supports the diagnosis of Diabetes Mellitus. ADA recommended reference range Performed By: #### C BC, BMP #### [address] Hematocrit Auto (Bld) [Volum e fraction]Ordered By: Morgan Morrell on 08-29-2024 Hematocrit (Bld) [Volume fraction] Hematocrit [Volume Fraction] of Blood by Automated count 38.8-50.0 [facility] Hematocrit [Volume Fraction] of Blood by Automated countOrdered By: Morgan Morrell on 08-29-2024 Hematocrit (Bld) [Volume fraction] 41.8 % Normal 38.8-50.0 [facility] Comment on above: Performed By: #### C JOSEFINA, BMP #### [facility] [address] [place] [address] Hemoglobin [Mass/volume] in BloodOrdered By: Morgan Morrell on 08-29-2024 Hemoglobin (Bld) [Mass/Vol] Hemoglobin [Mass/volume] in Blood 13.0-17.0 [facility] Hemoglobin (Bld) [Mass/Vol] 14.4 g/dL Normal 13.0-17.0 [facility] Comment on above: Performed By: #### C JOSEFINA, BMP #### [facility] [address] [place] [address] Leukocytes [#/volume] correc juan for nucleated erythrocytes in Blood by Automated counOrdered By: Morgan Morrell on 08-29-2024 WBC corrected for nucl RBC Auto (Bld) [#/Vol] Leukocytes [#/volume] corrected for nucleated erythrocytes in Blood by Automated coun 4.1-10.5 [facility] WBC corrected for nucl RBC Auto (Bld) [#/Vol] 6.5 10*3/uL 4.1-10.5 [facility] Leukocytes [#/volume] in Blo od by Automated countOrdered By: Morgan Morrell on 08-29-2024 WBC (Bld) [#/Vol] 6.5 10*3/uL Normal 4.1-10.5 [facility] Comment on above: Performed By: #### C BC, BMP #### [address] Lymphocytes Auto (Bld) [#/Vo l]Ordered By: Morgan Morrell on 08-29-2024 Lymphocytes (Bld) [#/Vol] Lymphocytes [#/volume] in Blood by Automated count 1.00-4.8 [facility] Lymphocytes [#/volume] in Bl ood by Automated countOrdered By: Morgan Morrell on 08-29-2024 Lymphocytes (Bld) [#/Vol] 2.1 10*3/uL Normal 1.00-4.8 [facility] Comment on above: Performed By: #### C BC, BMP #### [facility] [address] [place] [address] Lymphocytes/100 WBC Auto (Bl d)Ordered By: Morgan Morrell on 08-29-2024 Lymphocytes/100 WBC (Bld) Lymphocytes/100 leukocytes in Blood by Automated count . [facility] Lymphocytes/100 leukocytes i n Blood by Automated countOrdered By: Morgan Morrell on 08-29-2024 Lymphocytes/100 WBC (Bld) 32.3 % Normal . [facility] Comment on above: Performed By: #### C JOSEFINA, BMP #### [address] MCH Auto (RBC) [Entitic mass ]Ordered By: Morgan Morrell on 08-29-2024 MCH (RBC) [Entitic mass] MCH [Entitic mass] by Automated count 27.5-35.2 [facility] MCH [Entitic mass] by Automa juan countOrdered By: Morgan Morrell on 08-29-2024 MCH (RBC) [Entitic mass] 31.4 pg Normal 27.5-35.2 [facility] Comment on above: Performed By: #### C BC, BMP #### [address] MCHC Auto (RBC) [Mass/Vol]Or dered By: Morgan Morrell on 08-29-2024 MCHC (RBC) [Mass/Vol] MCHC [Mass/volume] by Automated count 32.5-35.6 [facility] MCHC (RBC) [Mass/Vol] 34.4 g/dL 32.5-35.6 [facility] MCV Auto (RBC) [Entitic vol] Ordered By: Morgan Morrell on 08-29-2024 MCV (RBC) [Entitic vol] MCV [Entitic volume] by Automated count 83.5-101 [facility] MCV [Entitic volume] by Auto mated countOrdered By: Morgan Morrell on 08-29-2024 MCV (RBC) [Entitic vol] 91.0 fL Normal 83.5-101 [facility] Comment on above: Performed By: #### C JOSEFINA, BMP #### [address] Monocytes Auto (Bld) [#/Vol] Ordered By: Morgan Morrell on 08-29-2024 Monocytes (Bld) [#/Vol] Automated blood monocyte count 0.0-0.8 [facility] Monocytes [#/volume] in Bloo d by Automated countOrdered By: Morgan Morrell on 08-29-2024 Monocytes (Bld) [#/Vol] 0.5 10*3/uL Normal 0.0-0.8 [facility] Comment on above: Performed By: #### C JOSEFINA, BMP #### [address] Monocytes/100 WBC Auto (Bld) Ordered By: Morgan Morrell on 08-29-2024 Monocytes/100 WBC (Bld) Automated monocyte % . [facility] Monocytes/100 leukocytes in Blood by Automated countOrdered By: Morgan Morrell on 08-29-2024 Monocytes/100 WBC (Bld) 8.0 % Normal . [facility] Comment on above: Performed By: #### C JOSEFNIA, BMP #### [address] Neutrophils Auto (Bld) [#/Vo l]Ordered By: Morgan Morrell on 08-29-2024 Neutrophils (Bld) [#/Vol] Neutrophils [#/volume] in Blood by Automated count 1.8-7.7 [facility] Neutrophils [#/volume] in Bl ood by Automated countOrdered By: Morgan Morrell on 08-29-2024 Neutrophils (Bld) [#/Vol] 3.7 10*3/uL Normal 1.8-7.7 [facility] Comment on above: Performed By: #### C BC, BMP #### [address] Neutrophils/100 WBC Auto (Bl d)Ordered By: Morgan Morrell on 08-29-2024 Neutrophils/100 WBC (Bld) Automated neutrophil % . [facility] Neutrophils/100 leukocytes i n Blood by Automated countOrdered By: Morgan Morrell on 08-29-2024 Neutrophils/100 WBC (Bld) 56.8 % Normal . [facility] Comment on above: Performed By: #### C JOSEFINA, BMP #### [facility] [address] No Panel InformationOrdered By: Morgan Morrell on 08-29-2024 Estimated GFR (CKD-EPI) > 60.0 mL/Min [facility] Creatinine Clearance (Chem N/A [facility] Nucleated erythrocytes [Pres ence] in Blood by Automated countOrdered By: Morgan Morrell on 08-29-2024 Nucleated RBC Auto Ql (Bld) Nucleated erythrocytes [Presence] in Blood by Automated count 0-0.5 [facility] Nucleated RBC Auto Ql (Bld) 0.2 /100{WBC} 0-0.5 [facility] Platelet mean volume Auto (B ld) [Entitic vol]Ordered By: Morgan Morrell on 08-29-2024 Platelet mean volume (Bld) [Entitic vol] Platelet mean volume [Entitic volume] in Blood by Automated count 6.6-10.1 [facility] Platelet mean volume [Entiti c volume] in Blood by Automated countOrdered By: Morgan Morrell on 08-29-2024 Platelet mean volume (Bld) [Entitic vol] 7.5 fL Normal 6.6-10.1 [facility] Comment on above: Performed By: #### C JOSEFINA, BMP #### [facility] [address] Platelets Auto (Bld) [#/Vol] Ordered By: Morgan Morrell on 08-29-2024 Platelets (Bld) [#/Vol] Platelets [#/volume] in Blood by Automated count 150-450 [facility] Platelets [#/volume] in Bloo d by Automated countOrdered By: Morgan Morrell on 06-09-2025 Platelets (Bld) [#/Vol] 233 10*3/uL Normal 150-450 [facility] Comment on above: Performed By: #### C JOSEFINA, BMP #### [facility] [address] [place] [address] [place] Potassium [Moles/volume] in Serum or PlasmaOrdered By: Morgan Morrell on 08-29-2024 Potassium [Moles/Vol] Potassium [Moles/v olume] in Serum or Plasma 3.5-5.1 [facility] Potassium [Moles/Vol] 4.3 mmol/L Normal 3.5-5.1 [facility] Comment on above: Performed By: #### C JOSEFINA, BMP #### [facility] [address] [place] [address] RBC Auto (Bld) [#/Vol]Ordere d By: Morgan Morrell on 08-29-2024 RBC (Bld) [#/Vol] Erythrocytes [#/volu me] in Blood by Automated count 3.90-5.60 [facility] Serum or plasma anion gap de terminationOrdered By: Morgan Morrell on 08-29-2024 Anion gap [Moles/Vol] Serum or plasma an ion gap determination 6.0-15.0 [facility] Anion gap [Moles/Vol] 8.9 mmol/L Normal 6.0-15.0 [facility] Comment on above: Performed By: #### C JOSEFINA, BMP #### [facility] [address] [place] [address] [place] Sodium [Moles/volume] in Ser um or PlasmaOrdered By: Morgan Morrell on 08-29-2024 Sodium [Moles/Vol] Sodium [Moles/volume ] in Serum or Plasma 136-145 [facility] Sodium [Moles/Vol] 140 mmol/L Normal 136-145 [facility] Comment on above: Performed By: #### C JOSEFINA, BMP #### [place] [address] [place] Urea nitrogen [Mass/volume] in Serum or PlasmaOrdered By: Morgan Morrell on 08-29-2024 Urea nitrogen [Mass/Vol] Urea nitrogen [Mass/volume] in Serum or Plasma 10-14 [facility] Urea nitrogen [Mass/Vol] 16 mg/dL Normal 10-14 [facility] Comment on above: Performed By: #### C LE ROCHA #### [facility] [address] WBC Auto (Bld) [#/Vol]Ordere d By: Morgan Morrell on 08-29-2024 WBC (Bld) [#/Vol] Leukocytes [#/volume ] in Blood by Automated count 4.1-10.5 [facility] Office Visiton 07-27-2024 Follow-up visit [id number] Jimmy Dumont 1960 M Date Provider Department Center 07/27/2024 [facility] Family History Problem Relation Age of Onset Other Mother Heart disease Father Family Status - Relation Status Age at Mother Father Level of Service:79003 [place] OFFICE/OUTPATIENT ESTABLISHED MOD MDM 30 MIN Reason for Visit and Comments: Coronary Artery Disease [187] Pre-op Exam [154287] Normal [facility] Alanine aminotransferase [En zymatic activity/volume] in Serum or PlasmaOrdered By: Higinio Minaya on 07-24-2024 ALT [Catalytic activity/Vol] Alanine aminotransferase [Enzymatic activity/volume] in Serum or Plasma [facility] ALT [Catalytic activity/Vol] 12 U/L Normal [facility] Comment on above: Performed By: #### C JOSEFINA, LE #### [facility] [address] [place] [address] Albumin [Mass/volume] in Ser um or Plasma by Bromocresol green (BCG) dye binding methoOrdered By: Higinio Minaya on 07-24-2024 Albumin BCG dye [Mass/Vol] Albumin [Mass/volume] in Serum or Plasma by Bromocresol green (BCG) dye binding metho 3.5-5.7 [facility] Albumin BCG dye [Mass/Vol] 3.7 g/dL 3.5-5.7 [facility] Alkaline phosphatase [Enzyma tic activity/volume] in Serum or PlasmaOrdered By: Higinio Martinor on 07-24-2024 ALP [Catalytic activity/Vol] Alkaline phosphatase [Enzymatic activity/volume] in Serum or Plasma 34-104 [facility] ALP [Catalytic activity/Vol] 58 U/L Normal 34-104 [facility] Comment on above: Performed By: #### C BC, BMP #### [facility] [address] [place] [address] [place] Aspartate aminotransferase [ Enzymatic activity/volume] in Serum or PlasmaOrdered By: Obaydah Daromar on 07-24-2024 AST [Catalytic activity/Vol] Aspartate aminotransferase [Enzymatic activity/volume] in Serum or Plasma Low 13-39 [facility] AST [Catalytic activity/Vol] 12 U/L Low 13-39 [facility] Comment on above: Performed By: #### C BC, BMP #### [facility] [address] [place] [address] [place] Basophils Auto (Bld) [#/Vol] Ordered By: Obortizdamurtaza Floweromar on 07-24-2024 Basophils (Bld) [#/Vol] Automated basophil count 0.0-0.2 [facility] Basophils [#/volume] in Bloo d by Automated countOrdered By: Higinio Floweromar on 07-24-2024 Basophils (Bld) [#/Vol] 0.0 10*3/uL Normal 0.0-0.2 [facility] Comment on above: Result Comment: PERF ORMED BY: [address] [place] [address] PATHOLOGIST MANAGER OF CASE IRIS GARRETT M.D. Performed By: #### C JOSEFINA, BMP #### [facility] [address] [place] [address] [place] Basophils/100 WBC Auto (Bld) Ordered By: Obortizdamurtaza Floweromar on 07-24-2024 Basophils/100 WBC (Bld) Automated basophil % . [facility] Basophils/100 leukocytes in Blood by Automated countOrdered By: Higinio Floweromar on 07-24-2024 Basophils/100 WBC (Bld) 0.6 % Normal . [facility] Comment on above: Performed By: #### C BC, BMP #### [facility] [address] [place] [id number] [place] Bilirubin.total [Mass/volume ] in Serum or PlasmaOrdered By: Higinio Minaya on 07-24-2024 Bilirubin [Mass/Vol] Bilirubin.total [Mass/volume] in Serum or Plasma 0.3-1.0 [facility] Bilirubin [Mass/Vol] 0.5 mg/dL Normal 0.3-1.0 [facility] Comment on above: Performed By: #### C BC, BMP #### [facility] [address] [place] [id number] [place] Calcium [Mass/volume] in Ser um or PlasmaOrdered By: Higinio Minaya on 07-24-2024 Calcium [Mass/Vol] Calcium [Mass/volume ] in Serum or Plasma Low 8.6-10.3 [facility] Calcium [Mass/Vol] 8.3 mg/dL Low 8.6-10.3 [facility] Comment on above: Performed By: #### C BC, BMP #### [facility] [address] [place] [id number] [place] Carbon dioxide, total [Moles /volume] in Serum or PlasmaOrdered By: Higinio Minaya on 07-24-2024 CO2 [Moles/Vol] Carbon dioxide, tota l [Moles/volume] in Serum or Plasma 21.0-31.0 [facility] CO2 [Moles/Vol] 27.1 mmol/L Normal 21.0-31.0 [facility] Comment on above: Performed By: #### C BC, BMP #### [facility] [address] [place] [id number] [place] Chloride [Moles/volume] in S luci or PlasmaOrdered By: Higinio Minaya on 07-24-2024 Chloride [Moles/Vol] Chloride [Moles/vol ume] in Serum or Plasma High 98-107 [facility] Chloride [Moles/Vol] 109 mmol/L High 98-107 [facility] Comment on above: Performed By: #### C BC, BMP #### [facility] [address] [place] [address] [place] Cholesterol [Mass/volume] in Serum or PlasmaOrdered By: Obaydah Mundoomar on 07-24-2024 Cholesterol [Mass/Vol] Cholesterol [Mass /volume] in Serum or Plasma Low 140-200 [facility] Comment on above: Chol less than 200 m g/dl low riskChol 201-239 mg/dl borderline riskChol 240 mg/dl and greater high risk Cholesterol [Mass/Vol] 83 mg/dL Low 140-200 [facility] Comment on above: Chol less than 200 m g/dl low riskChol 201-239 mg/dl borderline riskChol 240 mg/dl and greater high risk Result Comment: Chol less than 200 mg/dl low risk Chol 201-239 mg/dl borderline risk Chol 240 mg/dl and greater high risk Performed By: #### C BC, BMP #### [facility] [address] [place] [id number] [place] Cholesterol in HDL [Mass/vol ume] in Serum or PlasmaOrdered By: Obortizdah Mundoomar on 07-24-2024 Cholesterol in HDL [Mass/Vol] Serum or plasma high density lipoprotein (HDL) cholesterol measurement [facility] Comment on above: HDL CHOL ATP-III CLA SSIFICATION Cardiovascular RiskHDL > or equal to 60 mg/dL LOWHDL < 40 mg/dL HIGH Cholesterol in HDL [Mass/Vol] 24 mg/dL Normal [address] Comment on above: HDL CHOL ATP-III CLA SSIFICATION Cardiovascular RiskHDL > or equal to 60 mg/dL LOWHDL < 40 mg/dL HIGH Result Comment: HDL CHOL ATP-III CLASSIFICATION Cardiovascular Risk HDL > or equal to 60 mg/dL LOW HDL < 40 mg/dL HIGH Performed By: #### C BC, BMP #### [facility] [address] [place] [id number] [place] Cholesterol in LDL Calc [Mas s/Vol]Ordered By: Obortizdamurtaza Floweromar on 07-24-2024 Cholesterol in LDL [Mass/Vol] Cholesterol in LDL [Mass/volume] in Serum or Plasma by calculation 0-100 [facility] Comment on above: LDL ATP III CLASSIFI CATIONLDL less than 100 mg/dL OptimalLDL 100-129 mg/dL Near or above optimalLDL 130-159 mg/dL Borderline highLDL 160-189 mg/dL HighLDL greater than 189 mg/dL Very high Cholesterol in LDL [Mass/Vol] 33 mg/dL 0-100 [facility] Comment on above: LDL ATP III CLASSIFI CATIONLDL less than 100 mg/dL OptimalLDL 100-129 mg/dL Near or above optimalLDL 130-159 mg/dL Borderline highLDL 160-189 mg/dL HighLDL greater than 189 mg/dL Very high Cholesterol in VLDL Calc [Ma ss/Vol]Ordered By: Higinio Minaya on 07-24-2024 Cholesterol in VLDL [Mass/Vol] Cholesterol in VLDL [Mass/volume] in Serum or Plasma by calculation [facility] Cholesterol in VLDL [Mass/Vol] 26 mg/dL [facility] Complete Blood Count Auto Di ffon 07-24-2024 Mean Corpuscular HGB Conc 35.5 g/dL Normal 32.5-35.6 [facility] Comment on above: Performed By: #### C BC, BMP #### [facility] [address] [place] [address] [place] Monocytes/100 WBC (Bld) 17.48 % Normal 0.00-20.00 [facility] Comment on above: Performed By: #### C BC, BMP #### [facility] [address] NRBC% 0.1 /100{WBC} Normal 0-0.5 [facility] Comment on above: Performed By: #### C BC, BMP #### [facility] [address] [place] [id number] [facility] Comprehensive Metabolic Pane phill 07-24-2024 Albumin [Mass/Vol] 3.7 g/dL Normal 3.5-5.7 [facility] Comment on above: Performed By: #### C BC, BMP #### [facility] [address] [place] [id number] [place] Creatinine Clr Calc Pharmacy 79.42 Normal [facility] Comment on above: Performed By: #### C BC, BMP #### [facility] [address] [place] [address] GFR/1.73 sq M.predicted MDRD (S/P/Bld) [Vol rate/Area] mL/min/{1.73_m2} Normal [facility] Comment on above: Performed By: #### C JOSEFINA, BMP #### [address] Creatinine [Mass/volume] in Serum or PlasmaOrdered By: Higinio Minaya on 07-24-2024 Creatinine [Mass/Vol] Creatinine [Mass/v olume] in Serum or Plasma 0.70-1.30 [facility] Creatinine [Mass/Vol] 1.05 mg/dL Normal 0.70-1.30 [facility] Comment on above: Performed By: #### C JOSEFINA, BMP #### [address] Eosinophils Auto (Bld) [#/Vo l]Ordered By: Higinio Minaya on 07-24-2024 Eosinophils (Bld) [#/Vol] Automated eosinophil count 0.0-0.45 [facility] Eosinophils [#/volume] in Bl ood by Automated countOrdered By: Higinio Minaya on 07-24-2024 Eosinophils (Bld) [#/Vol] 0.2 10*3/uL Normal 0.0-0.45 [facility] Comment on above: Performed By: #### C JOSEFINA, BMP #### [facility] [address] [place] [address] [place] Eosinophils/100 WBC Auto (Bl d)Ordered By: Higinio Martinor on 07-24-2024 Eosinophils/100 WBC (Bld) Automated eosinophil % . [facility] Eosinophils/100 leukocytes i n Blood by Automated countOrdered By: Higinio Martinor on 07-24-2024 Eosinophils/100 WBC (Bld) 3.1 % Normal . [facility] Comment on above: Performed By: #### C BC, BMP #### [address] Erythrocyte distribution wid th Auto (RBC) [Ratio]Ordered By: Higinio Martinor on 07-24-2024 Erythrocyte distribution width (RBC) [Ratio] Erythrocyte distribution width [Ratio] by Automated count 12.0-14.8 [facility] Erythrocyte distribution wid th [Ratio] by Automated countOrdered By: Higinio Martinor on 07-24-2024 Erythrocyte distribution width (RBC) [Ratio] 13.4 % Normal 12.0-14.8 [facility] Comment on above: Performed By: #### C JOSEFINA, BMP #### [facility] [address] Erythrocytes [#/volume] in B lood by Automated countOrdered By: Higinio Minaya on 07-24-2024 RBC (Bld) [#/Vol] 4.20 10*6/uL Normal 3.90-5.60 [facility] Comment on above: Performed By: #### C JOSEFINA, BMP #### [facility] [address] Globulin Calc (S) [Mass/Vol] Ordered By: Higinio Martinor on 07-24-2024 Globulin (S) [Mass/Vol] Serum globulin measurement by calculation (mass/volume) [facility] Glucose [Mass/volume] in Ser um or PlasmaOrdered By: Higinio Martinor on 07-24-2024 Glucose [Mass/Vol] Glucose [Mass/volume ] in Serum or Plasma 70-100 [facility] Comment on above: ADA recommended refe rence rangeRandom Glucose Reference Range is dependent on time and content of last meal. Glucose of more than 200 mg/dL in a nonstressed, ambulatory subject supports the diagnosis of Diabetes Mellitus. Glucose [Mass/Vol] 86 mg/dL Normal 70-100 [facility] Comment on above: ADA recommended refe rence rangeRandom Glucose Reference Range is dependent on time and content of last meal. Glucose of more than 200 mg/dL in a nonstressed, ambulatory subject supports the diagnosis of Diabetes Mellitus. Result Comment: [facility] om Glucose Reference Range is dependent on time and content of last meal. Glucose of more than 200 mg/dL in a nonstressed, ambulatory subject supports the diagnosis of Diabetes Mellitus. ADA recommended reference range Performed By: #### C JOSEFINA, LE #### [facility] [address] Hematocrit Auto (Bld) [Volum e fraction]Ordered By: Obortizdamurtaza Floweromar on 07-24-2024 Hematocrit (Bld) [Volume fraction] Hematocrit [Volume Fraction] of Blood by Automated count Low 38.8-50.0 [facility] Hematocrit [Volume Fraction] of Blood by Automated countOrdered By: Obaydah Daromar on 07-24-2024 Hematocrit (Bld) [Volume fraction] 37.3 % Low 38.8-50.0 [facility] Comment on above: Performed By: #### C JOSEFINA, BMP #### [address] Hemoglobin [Mass/volume] in BloodOrdered By: Obortizdah Daromar on 07-24-2024 Hemoglobin (Bld) [Mass/Vol] Hemoglobin [Mass/volume] in Blood 13.0-17.0 [facility] Hemoglobin (Bld) [Mass/Vol] 13.3 g/dL Normal 13.0-17.0 [facility] Comment on above: Performed By: #### C JOSEFINA, BMP #### [address] Leukocytes [#/volume] correc juan for nucleated erythrocytes in Blood by Automated counOrdered By: Almadamurtaza Floweromar on 07-24-2024 WBC corrected for nucl RBC Auto (Bld) [#/Vol] Leukocytes [#/volume] corrected for nucleated erythrocytes in Blood by Automated coun 4.1-10.5 [facility] WBC corrected for nucl RBC Auto (Bld) [#/Vol] 5.3 10*3/uL 4.1-10.5 [facility] Leukocytes [#/volume] in Blo od by Automated countOrdered By: Obaydah Daromar on 07-24-2024 WBC (Bld) [#/Vol] 5.3 10*3/uL Normal 4.1-10.5 [facility] Comment on above: Performed By: #### C JOSEFINA, BMP #### [address] Lipid Panelon 07-24-2024 LDL Cholesterol,Calculated 33 mg/dL Normal 0-100 [facility] Comment on above: Result Comment: LDL ATP III CLASSIFICATION LDL less than 100 mg/dL Optimal LDL 100-129 mg/dL Near or above optimal LDL 130-159 mg/dL Borderline high LDL 160-189 mg/dL High LDL greater than 189 mg/dL Very high Performed By: #### C BC, BMP #### [address] Triglyceride w/Reflex 131 mg/dL Normal 0-149 [facility] Comment on above: Result Comment: TRIG ATP III CLASSIFICATION TRIG less than 150 mg/dL Normal TRIG 150-199 mg/dL Borderline high TRIG 200-500 mg/dL High TRIG greater than 500 mg/dL Very high Standard traceable to the Center for Disease Conrtrol and Prevention (CDC) test method. Performed By: #### C BC, BMP #### [address] VLDL CHOLESTEROL 26 mg/dL Normal [facility] Comment on above: Performed By: #### C BC, BMP #### [address] Lymphocytes Auto (Bld) [#/Vo l]Ordered By: Obortizdah Mundoomar on 07-24-2024 Lymphocytes (Bld) [#/Vol] Lymphocytes [#/volume] in Blood by Automated count 1.00-4.8 [facility] Lymphocytes [#/volume] in Bl ood by Automated countOrdered By: Obortizdamurtaza Floweromar on 07-24-2024 Lymphocytes (Bld) [#/Vol] 2.0 10*3/uL Normal 1.00-4.8 [facility] Comment on above: Performed By: #### C BC, BMP #### [address] Lymphocytes/100 WBC Auto (Bl d)Ordered By: Obortizdah Mundoomar on 07-24-2024 Lymphocytes/100 WBC (Bld) Lymphocytes/100 leukocytes in Blood by Automated count . [facility] Lymphocytes/100 leukocytes i n Blood by Automated countOrdered By: Obortizdah Daromar on 07-24-2024 Lymphocytes/100 WBC (Bld) 38.1 % Normal . [facility] Comment on above: Performed By: #### C BC, BMP #### [facility] [address] MCH Auto (RBC) [Entitic mass ]Ordered By: Obaydah Daromar on 07-24-2024 MCH (RBC) [Entitic mass] MCH [Entitic mass] by Automated count 27.5-35.2 [facility] MCH [Entitic mass] by Automa juan countOrdered By: Obaydah Daromar on 07-24-2024 MCH (RBC) [Entitic mass] 31.6 pg Normal 27.5-35.2 [facility] Comment on above: Performed By: #### C BC, BMP #### [facility] [address] MCHC Auto (RBC) [Mass/Vol]Or dered By: Obaydah Daromar on 07-24-2024 MCHC (RBC) [Mass/Vol] MCHC [Mass/volume] by Automated count 32.5-35.6 [facility] MCHC (RBC) [Mass/Vol] 35.5 g/dL 32.5-35.6 [facility] MCV Auto (RBC) [Entitic vol] Ordered By: Obortizdah Daromar on 07-24-2024 MCV (RBC) [Entitic vol] MCV [Entitic volume] by Automated count 83.5-101 [facility] MCV [Entitic volume] by Auto mated countOrdered By: Obortizdah Daromar on 07-24-2024 MCV (RBC) [Entitic vol] 88.9 fL Normal 83.5-101 [facility] Comment on above: Performed By: #### C BC, BMP #### [facility] [address] Monocyte distribution width [Entitic volume] in Blood by AutomatedOrdered By: Obaydah Daromar on 07-24-2024 Monocyte distribution width Auto (Bld) [Entitic vol] Monocyte distribution width [Entitic volume] in Blood by Automated 0.00-20.00 [facility] Monocyte distribution width Auto (Bld) [Entitic vol] 17.48 % 0.00-20.00 [facility] Monocytes Auto (Bld) [#/Vol] Ordered By: Obaydah Daromar on 07-24-2024 Monocytes (Bld) [#/Vol] Automated blood monocyte count 0.0-0.8 [facility] Monocytes [#/volume] in Bloo d by Automated countOrdered By: Obortizdamurtaza Floweromar on 07-24-2024 Monocytes (Bld) [#/Vol] 0.5 10*3/uL Normal 0.0-0.8 [facility] Comment on above: Performed By: #### C BC, BMP #### [facility] [address] [place] [address] Monocytes/100 WBC Auto (Bld) Ordered By: Obortizdamurtaza Floweromar on 07-24-2024 Monocytes/100 WBC (Bld) Automated monocyte % . [facility] Monocytes/100 leukocytes in Blood by Automated countOrdered By: Obortizdamurtaza Floweromar on 07-24-2024 Monocytes/100 WBC (Bld) 9.4 % Normal . [facility] Comment on above: Performed By: #### C BC, BMP #### [facility] [address] [place] [address] Neutrophils Auto (Bld) [#/Vo l]Ordered By: Obortizdah Mundoomar on 07-24-2024 Neutrophils (Bld) [#/Vol] Neutrophils [#/volume] in Blood by Automated count 1.8-7.7 [facility] Neutrophils [#/volume] in Bl ood by Automated countOrdered By: Obortizdah Daromar on 07-24-2024 Neutrophils (Bld) [#/Vol] 2.6 10*3/uL Normal 1.8-7.7 [facility] Comment on above: Performed By: #### C BC, BMP #### [facility] [address] [place] [address] Neutrophils/100 WBC Auto (Bl d)Ordered By: Obortizdah Mundoomar on 07-24-2024 Neutrophils/100 WBC (Bld) Automated neutrophil % . [facility] Neutrophils/100 leukocytes i n Blood by Automated countOrdered By: Obrotizdah Mundoomar on 07-24-2024 Neutrophils/100 WBC (Bld) 48.8 % Normal . [facility] Comment on above: Performed By: #### C JOSEFINA, BMP #### [facility] [address] No Panel InformationOrdered By: Obortizdamurtaza Floweromar on 07-24-2024 Estimated GFR (CKD-EPI) > 60.0 mL/Min [facility] Creatinine Clearance (Chem 79.42 [facility] Nucleated erythrocytes [Pres ence] in Blood by Automated countOrdered By: Obessence Floweromar on 07-24-2024 Nucleated RBC Auto Ql (Bld) Nucleated erythrocytes [Presence] in Blood by Automated count 0-0.5 [facility] Nucleated RBC Auto Ql (Bld) 0.1 /100{WBC} 0-0.5 [facility] Platelet mean volume Auto (B ld) [Entitic vol]Ordered By: Obortizdah Mundoomar on 07-24-2024 Platelet mean volume (Bld) [Entitic vol] Platelet mean volume [Entitic volume] in Blood by Automated count 6.6-10.1 [facility] Platelet mean volume [Entiti c volume] in Blood by Automated countOrdered By: Obortizdah Mundoomar on 07-24-2024 Platelet mean volume (Bld) [Entitic vol] 7.2 fL Normal 6.6-10.1 [facility] Comment on above: Performed By: #### C JOSEFINA, BMP #### [facility] [address] Platelets Auto (Bld) [#/Vol] Ordered By: Obortizdamurtaza Floweromar on 07-24-2024 Platelets (Bld) [#/Vol] Platelets [#/volume] in Blood by Automated count 150-450 [facility] Platelets [#/volume] in Bloo d by Automated countOrdered By: Higinio Floweromar on 07-24-2024 Platelets (Bld) [#/Vol] 198 10*3/uL Normal 150-450 [facility] Comment on above: Performed By: #### C JOSEFINA, BMP #### [address] Potassium [Moles/volume] in Serum or PlasmaOrdered By: Obortizdamurtaza Floweromar on 07-24-2024 Potassium [Moles/Vol] Potassium [Moles/v olume] in Serum or Plasma 3.5-5.1 [facility] Potassium [Moles/Vol] 4.0 mmol/L Normal 3.5-5.1 [facility] Comment on above: Performed By: #### C JOSEFINA, BMP #### [address] Protein [Mass/volume] in Ser um or PlasmaOrdered By: Higinio Floweromar on 07-24-2024 Protein [Mass/Vol] Protein [Mass/volume ] in Serum or Plasma Low 6.4-8.9 [facility] Protein [Mass/Vol] 5.9 g/dL Low 6.4-8.9 [facility] Comment on above: Performed By: #### C JOSEFINA, BMP #### [address] RBC Auto (Bld) [#/Vol]Ordere d By: Almadamurtaza Floweromar on 07-24-2024 RBC (Bld) [#/Vol] Erythrocytes [#/volu me] in Blood by Automated count 3.90-5.60 [facility] Serum globulin measurement b y calculation (mass/volume)Ordered By: Higinio Floweromar on 07-24-2024 Globulin (S) [Mass/Vol] 2.2 g/dL Normal [facility] Comment on above: Performed By: #### C JOSEFINA, BMP #### [address] Serum or plasma albumin/glob ulin mass ratioOrdered By: Obortizdamurtaza Floweromar on 07-24-2024 Albumin/Globulin [Mass ratio] Serum or plasma albumin/globulin mass ratio [facility] Albumin/Globulin [Mass ratio] 1.7 {ratio} Normal [facility] Comment on above: Performed By: #### C JOSEFINA, BMP #### [address] Serum or plasma anion gap de terminationOrdered By: Obortizdaumrtaza Floweromar on 07-24-2024 Anion gap [Moles/Vol] Serum or plasma an ion gap determination 6.0-15.0 [facility] Anion gap [Moles/Vol] 7.9 mmol/L Normal 6.0-15.0 [facility] Comment on above: Performed By: #### C JOSEFINA, BMP #### [address] Serum or plasma total choles terol/high density lipoprotein (HDL) cholesterol mass ratOrdered By: Obaydamurtaza Floweromar on 07-24-2024 Cholesterol.total/Chol esterol in HDL [Mass ratio] Serum or plasma total cholesterol/high density lipoprotein (HDL) cholesterol mass rat <5.0 [facility] Cholesterol.total/Chol esterol in HDL [Mass ratio] 3.5 {ratio} Normal <5.0 [facility] Comment on above: Result Comment: PERF ORMED BY: [place] [address] PATHOLOGIST MANAGER OF CASE IRIS GARRETT M.D. Performed By: #### C JOSEFINA, BMP #### [facility] [address] [place] [address] Sodium [Moles/volume] in Ser um or PlasmaOrdered By: Obaydah Daromar on 07-24-2024 Sodium [Moles/Vol] Sodium [Moles/volume ] in Serum or Plasma 136-145 [facility] Sodium [Moles/Vol] 140 mmol/L Normal 136-145 [facility] Comment on above: Performed By: #### C JOSEFINA, BMP #### [facility] [address] [place] [address] Triglyceride [Mass/volume] i n Serum or PlasmaOrdered By: Higinio Minaya on 07-24-2024 Triglyceride [Mass/Vol] Triglyceride [Mass/volume] in Serum or Plasma 0-149 [facility] Comment on above: TRIG ATP III CLASSIF ICATIONTRIG less than 150 mg/dL NormalTRIG 150-199 mg/dL Borderline highTRIG 200-500 mg/dL High TRIG greater than 500 mg/dL Very highStandard traceable to the Center for Disease Conrtrol and Prevention (CDC) test method. Triglyceride [Mass/Vol] 131 mg/dL 0-149 [facility] Comment on above: TRIG ATP III CLASSIF ICATIONTRIG less than 150 mg/dL NormalTRIG 150-199 mg/dL Borderline highTRIG 200-500 mg/dL High TRIG greater than 500 mg/dL Very highStandard traceable to the Center for Disease Conrtrol and Prevention (CDC) test method. Troponin I High Sensitivityo n 07-24-2024 Troponin I High Sensitivity 4 Normal 0-20 [facility] Comment on above: Result Comment: The Troponin units of report have been changed to meet the Chest Pain Accreditation requirement, element EC5.M1l2. Troponin units are changed from pg/ml to ng/L. Also, the decimal is removed and results are in whole numbers. PERFORMED BY: [place] [address] PATHOLOGIST MANAGER OF CASE IRIS GARRETT M.D. Performed By: #### C , BMP #### [address] Troponin I.cardiac [Mass/vol ume] in Serum or Plasma by Detection limit <= 0.01 ng/Ordered By: Higinio Minaya on 07-24-2024 Troponin I.cardiac DL <= 0.01 ng/mL [Mass/Vol] Troponin I.cardiac [Mass/volume] in Serum or Plasma by Detection limit <= 0.01 ng/ 0-20 [facility] Comment on above: The Troponin units o f report have been changed to meet the Chest Pain Accreditation requirement, element EC5.M1l2. Troponin units are changed from pg/ml to ng/L. Also, the decimal is removed and results are in whole numbers. Troponin I.cardiac [Mass/vol ume] in Serum or Plasma by Detection limit <= 0.01 ng/mLOrdered By: Higinio Minaya on 07-24-2024 Troponin I.cardiac DL <= 0.01 ng/mL [Mass/Vol] 4 ng/L 0-20 [facility] Comment on above: The Troponin units o f report have been changed to meet the Chest Pain Accreditation requirement, element EC5.M1l2. Troponin units are changed from pg/ml to ng/L. Also, the decimal is removed and results are in whole numbers. US gall bladderon 07-24-2024 US gall bladder [facility] [address] [place] [address] Ultrasound Report Signed Patient: Deion Dumont MR#: [id number] : 1960 Acct:[id number] Age/Sex: 63 / M ADM Date: 07/24/24 Loc: Room: [address] [place] [address] Type: ADM INOo Attending Dr: Dm Torres DO Ordering Provider: Kristen Bailey Jr, MD Date of Service: 07/23/24 US/US gall bladder: RUQ pain hx gallstones Copies to: DO Kristen Kothari Jr, MD LIMITED ABDOMINAL ULTRASOUND: CLINICAL HISTORY: Left-sided chest pain, right upper quadrant pain, history gallstones COMPARISON: None TECHNIQUE: Grayscale and color Doppler images of the right upper quadrant organs were obtained. FINDINGS: Pancreas: Mostly obscured Liver: 15.2 cm in length. Fatty infiltration. No definite focal liver lesions. Gallbladder: Echogenic shadowing debris/echogenic foci. Likely gallstones and sludge. Negative sonographic Jc's sign. Unremarkable wall thickness 2.6 mm. CBD: 1.1 cm, dilated US/US gall bladder IMPRESSION: DILATATION OF THE COMMON BILE DUCT. CORRELATION WITH LFTS RECOMMENDED. IF WARRANTED, CONSIDER MRCP. CHOLELITHIASIS/SLUDGE FATTY LIVER. Impression dictated by: William Eric M.D. 07/24/2024 10:14 AM Dictation Location: [place] [address] Tech: Renetta Wills Transcribed By: KEKE 07/24/24 1010 Dictated By: William Eric MD 07/24/24 1011 Signed By: 07/24/24 1014 Normal [facility] Urea nitrogen [Mass/volume] in Serum or PlasmaOrdered By: Higinio Minaya on 07-24-2024 Urea nitrogen [Mass/Vol] Urea nitrogen [Mass/volume] in Serum or Plasma 10-14 [facility] Urea nitrogen [Mass/Vol] 15 mg/dL Normal 10-14 [facility] Comment on above: Performed By: #### C BC, BMP #### [address] WBC Auto (Bld) [#/Vol]Ordere d By: Higinio Minaya on 07-24-2024 WBC (Bld) [#/Vol] Leukocytes [#/volume ] in Blood by Automated count 4.1-10.5 [facility] X-ray reportOrdered By: Joao Eric on 07-24-2024 Study report [facility] [address] [place] [address] XRay Report Signed Patient: Deion Dumont MR#: [id number] : 1960 Acct:[id number] Age/Sex: 63 / M ADM Date: Loc: Room: [address] [place] [address] Type: ADM INOo Attending Dr: Dm Torres DO Copies to: DO Kristen Kothari Jr, MD~ Ordering Provider: Kristen Bailey Jr, MD Date of Service: 07/23/24 XR/XR chest 1V portable: Chest Pain SINGLE VIEW CHEST CLINICAL HISTORY: Left-sided chest pain COMPARISON: None FINDINGS: Upper limits normal cardiomediastinal silhouette. No focal opacity, effusion orpneumothorax. XR/XR chest 1V portable IMPRESSION: NO ACUTE FINDINGS Impression dictated by: William Eric M.D. 07/24/2024 9:37 AM Dictation Location: [place] [address] Transcribed By: KEKE 05/07/15 936 Dictated By: William Eric MD 07/24/24935 Signed By: 07/24/24936 [facility] Work Phone: XR chest 1V portableon 07-24 XR chest 1V portable [facility] [address] [place] [id number] XRay Report Signed Patient: Deion Dumont MR#: [id number] : 1960 Acct:[id number] Age/Sex: 63 / M ADM Date: 07/24/24 Loc: Room: [address] [place] [address] Type: ADM INOo Attending Dr: Dm Torres DO Copies to: DO Kristen Kohtari Jr, MD Ordering Provider: Kristen Bailey Jr, MD Date of Service: 07/23/24 XR/XR chest 1V portable: Chest Pain SINGLE VIEW CHEST CLINICAL HISTORY: Left-sided chest pain COMPARISON: None FINDINGS: Upper limits normal cardiomediastinal silhouette. No focal opacity, effusion or pneumothorax. XR/XR chest 1V portable IMPRESSION: NO ACUTE FINDINGS Impression dictated by: William Eric M.D. 07/24/2024 9:37 AM Dictation Location: [place] [address] Transcribed By: [facility] 07/24/24936 Dictated By: William Eric MD 07/24/24935 Signed By: 07/24/24936 Normal [facility] BNP ser/plasOrdered By: Umberto Bailey on 07-23-2024 Natriuretic peptide B (Bld) [Mass/Vol] 16.0 pg/mL Normal 5-100 [facility] Comment on above: Result Comment: PERF ORMED BY: [place] [address] PATHOLOGIST MANAGER OF CASE IRIS GARRETT M.D. Performed By: #### C BC, BMP #### [address] Complete Blood Count Auto Di ffon 07-23-2024 Basophils (Bld) [#/Vol] 0.0 10*3/uL Normal 0.0-0.2 [facility] Comment on above: Result Comment: PERF ORMED BY: [place] [address] PATHOLOGIST MANAGER OF CASE IRIS GARRETT M.D. Performed By: #### C BC, CMP, PT, PTT, BNP, LIPASE, HS TROP, CK #### [address] Basophils/100 WBC (Bld) 0.7 % Normal . [facility] Comment on above: Performed By: #### C BC, CMP, PT, PTT, BNP, LIPASE, HS TROP, CK #### [address] Eosinophils (Bld) [#/Vol] 0.2 10*3/uL Normal 0.0-0.45 [facility] Comment on above: Performed By: #### C BC, CMP, PT, PTT, BNP, LIPASE, HS TROP, CK #### [address] Eosinophils/100 WBC (Bld) 3.0 % Normal . [facility] Comment on above: Performed By: #### C BC, CMP, PT, PTT, BNP, LIPASE, HS TROP, CK #### [address] Erythrocyte distribution width (RBC) [Ratio] 13.2 % Normal 12.0-14.8 [facility] Comment on above: Performed By: #### C BC, CMP, PT, PTT, BNP, LIPASE, HS TROP, CK #### [address] Hematocrit (Bld) [Volume fraction] 41.1 % Normal 38.8-50.0 [facility] Comment on above: Performed By: #### C BC, CMP, PT, PTT, BNP, LIPASE, HS TROP, CK #### [address] Hemoglobin (Bld) [Mass/Vol] 14.6 g/dL Normal 13.0-17.0 [facility] Comment on above: Performed By: #### C BC, CMP, PT, PTT, BNP, LIPASE, HS TROP, CK #### [address] Lymphocytes (Bld) [#/Vol] 2.4 10*3/uL Normal 1.00-4.8 [facility] Comment on above: Performed By: #### C BC, CMP, PT, PTT, BNP, LIPASE, HS TROP, CK #### [address] Lymphocytes/100 WBC (Bld) 37.7 % Normal . [facility] Comment on above: Performed By: #### C BC, CMP, PT, PTT, BNP, LIPASE, HS TROP, CK #### [address] MCH (RBC) [Entitic mass] 31.3 pg Normal 27.5-35.2 [facility] Comment on above: Performed By: #### C BC, CMP, PT, PTT, BNP, LIPASE, HS TROP, CK #### [address] MCV (RBC) [Entitic vol] 88.2 fL Normal 83.5-101 [facility] Comment on above: Performed By: #### C BC, CMP, PT, PTT, BNP, LIPASE, HS TROP, CK #### [address] Mean Corpuscular HGB Conc 35.4 g/dL Normal 32.5-35.6 [facility] Comment on above: Performed By: #### C BC, CMP, PT, PTT, BNP, LIPASE, HS TROP, CK #### [address] Monocytes (Bld) [#/Vol] 0.6 10*3/uL Normal 0.0-0.8 [facility] Comment on above: Performed By: #### C BC, CMP, PT, PTT, BNP, LIPASE, HS TROP, CK #### [address] Monocytes/100 WBC (Bld) 16.64 % Normal 0.00-20.00 [facility] Comment on above: Performed By: #### C BC, CMP, PT, PTT, BNP, LIPASE, HS TROP, CK #### [address] Monocytes/100 WBC (Bld) 10.0 % Normal . [facility] Comment on above: Performed By: #### C BC, CMP, PT, PTT, BNP, LIPASE, HS TROP, CK #### [address] Neutrophils (Bld) [#/Vol] 3.1 10*3/uL Normal 1.8-7.7 [facility] Comment on above: Performed By: #### C BC, CMP, PT, PTT, BNP, LIPASE, HS TROP, CK #### [address] Neutrophils/100 WBC (Bld) 48.6 % Normal . [facility] Comment on above: Performed By: #### C BC, CMP, PT, PTT, BNP, LIPASE, HS TROP, CK #### [address] NRBC% 0.1 /100{WBC} Normal 0-0.5 [facility] Comment on above: Performed By: #### C BC, CMP, PT, PTT, BNP, LIPASE, HS TROP, CK #### [address] Platelet mean volume (Bld) [Entitic vol] 7.0 fL Normal 6.6-10.1 [facility] Comment on above: Performed By: #### C BC, CMP, PT, PTT, BNP, LIPASE, HS TROP, CK #### [address] Platelets (Bld) [#/Vol] 222 10*3/uL Normal 150-450 [facility] Comment on above: Performed By: #### C BC, CMP, PT, PTT, BNP, LIPASE, HS TROP, CK #### [facility] [address] RBC (Bld) [#/Vol] 4.66 10*6/uL Normal 3.90-5.60 [facility] Comment on above: Performed By: #### C BC, CMP, PT, PTT, BNP, LIPASE, HS TROP, CK #### [address] WBC (Bld) [#/Vol] 6.4 10*3/uL Normal 4.1-10.5 [facility] Comment on above: Performed By: #### C BC, CMP, PT, PTT, BNP, LIPASE, HS TROP, CK #### [address] Comprehensive Metabolic Pane phill 07-23-2024 Albumin [Mass/Vol] 4.3 g/dL Normal 3.5-5.7 [facility] Comment on above: Performed By: #### C BC, CMP, PT, PTT, BNP, LIPASE, HS TROP, CK #### [address] Albumin/Globulin [Mass ratio] 1.7 {ratio} Normal [facility] Comment on above: Performed By: #### C BC, CMP, PT, PTT, BNP, LIPASE, HS TROP, CK #### [address] ALP [Catalytic activity/Vol] 76 U/L Normal 34-104 [facility] Comment on above: Performed By: #### C BC, CMP, PT, PTT, BNP, LIPASE, HS TROP, CK #### [address] ALT [Catalytic activity/Vol] 15 U/L Normal 7-52 [facility] Comment on above: Performed By: #### C BC, CMP, PT, PTT, BNP, LIPASE, HS TROP, CK #### [address] Anion gap [Moles/Vol] 9.0 mmol/L Normal 6.0-15.0 [facility] Comment on above: Performed By: #### C BC, CMP, PT, PTT, BNP, LIPASE, HS TROP, CK #### [address] AST [Catalytic activity/Vol] 13 U/L Normal 13-39 [facility] Comment on above: Performed By: #### C BC, CMP, PT, PTT, BNP, LIPASE, HS TROP, CK #### [address] Bilirubin [Mass/Vol] 0.4 mg/dL Normal 0.3-1.0 [facility] Comment on above: Performed By: #### C BC, CMP, PT, PTT, BNP, LIPASE, HS TROP, CK #### [address] Calcium [Mass/Vol] 9.3 mg/dL Normal 8.6-10.3 [facility] Comment on above: Performed By: #### C BC, CMP, PT, PTT, BNP, LIPASE, HS TROP, CK #### [address] Chloride [Moles/Vol] 106 mmol/L Normal 98-107 [facility] Comment on above: Performed By: #### C BC, CMP, PT, PTT, BNP, LIPASE, HS TROP, CK #### [address] CO2 [Moles/Vol] 30.1 mmol/L Normal 21.0-31.0 [facility] Comment on above: Performed By: #### C BC, CMP, PT, PTT, BNP, LIPASE, HS TROP, CK #### [address] Creatinine [Mass/Vol] 1.27 mg/dL Normal 0.70-1.30 [facility] Comment on above: Performed By: #### C BC, CMP, PT, PTT, BNP, LIPASE, HS TROP, CK #### [address] Creatinine Clr Calc Pharmacy 65.96 Normal [facility] Comment on above: Performed By: #### C BC, CMP, PT, PTT, BNP, LIPASE, HS TROP, CK #### [facility] [address] GFR/1.73 sq M.predicted MDRD (S/P/Bld) [Vol rate/Area] mL/min/{1.73_m2} Normal [facility] Comment on above: Performed By: #### C BC, CMP, PT, PTT, BNP, LIPASE, HS TROP, CK #### [facility] [address] Globulin (S) [Mass/Vol] 2.6 g/dL Normal [facility] Comment on above: Performed By: #### C BC, CMP, PT, PTT, BNP, LIPASE, HS TROP, CK #### [facility] [address] Glucose [Mass/Vol] 107 mg/dL High 70-100 [facility] Comment on above: Result Comment: [facility] Glucose Reference Range is dependent on time and content of last meal. Glucose of more than 200 mg/dL in a nonstressed, ambulatory subject supports the diagnosis of Diabetes Mellitus. ADA recommended reference range Performed By: #### C BC, CMP, PT, PTT, BNP, LIPASE, HS TROP, CK #### [address] Potassium [Moles/Vol] 4.1 mmol/L Normal 3.5-5.1 [facility] Comment on above: Performed By: #### C BC, CMP, PT, PTT, BNP, LIPASE, HS TROP, CK #### [facility] [address] Protein [Mass/Vol] 6.9 g/dL Normal 6.4-8.9 [facility] Comment on above: Performed By: #### C BC, CMP, PT, PTT, BNP, LIPASE, HS TROP, CK #### [address] Sodium [Moles/Vol] 141 mmol/L Normal 136-145 [facility] Comment on above: Performed By: #### C BC, CMP, PT, PTT, BNP, LIPASE, HS TROP, CK #### [facility] [address] Urea nitrogen [Mass/Vol] 17 mg/dL Normal 10-14 [facility] Comment on above: Performed By: #### C BC, CMP, PT, PTT, BNP, LIPASE, HS TROP, CK #### [facility] [address] Creatine kinase [Enzymatic a ctivity/volume] in Serum or PlasmaOrdered By: Kristen Bailey on 07-23-2024 CK [Catalytic activity/Vol] Creatine kinase [Enzymatic activity/volume] in Serum or Plasma [facility] CK [Catalytic activity/Vol] 116 U/L Normal [facility] Comment on above: Performed By: #### C BC, BMP #### [address] ECG 12 lead ECGon 07-23-2024 ECG 12 lead ECG [facility] Main [place] [address] [place] [address] Electrocardiograph Report Signed Patient: Deion Dumont MR#: [id number] : 1960 Acct:[id number] Age/Sex: 63 / M ADM Date: 07/24/24 Loc: Room: [address] [place] [address] Type: DIS INOo Attending Dr: Dm Torres DO Ordering Provider: Domingo Ward PA-C Date of Service: 07/23/2406/14/2099 ECG/ECG 12 lead ECG: Chest Pain Copies to: Test Reason : Blood Pressure : */* mmHG Vent. Rate : 90 BPM Atrial Rate : 90 BPM P-R Int : 176 ms QRS Dur : 92 ms QT Int : 360 ms P-R-T Axes : 66 -61 70 degrees QTcB Int : 440 ms Normal sinus rhythm Left axis deviation Possible Inferior infarct (cited on or before 02-May-2012) Abnormal ECG When compared with ECG of 05-Oct-2022 12:53, No significant change was found Confirmed by KRISTEN BAILEY MD ([id number]) on 07/24/2024 10:01:46 PM Referred By: Electronically Signed By: KIRSTEN BAILEY MD Transcribed By: MUS Signed By Kristen Bailey Jr, MD 2[address] Normal [facility] INR in Platelet poor plasma by Coagulation assayOrdered By: Kristen Bailey on 07-23-2024 INR Coag (PPP) [Relative time] INR in Platelet poor plasma by Coagulation assay [facility] Comment on above: INR Therapeutic Rang e A) Pre- and Peroperative OAT started two weeks before surgery. NOT HIP SURGERY: 1.5 - 2.5 HIP SURGERY: 2 - 3B) Primary and secondary prevention of venous THROMBOSIS: 2 - 3C) Active venous thrombosis, pulmonary embolismand prevention of recurrent venous thrombosis: 2 - 3D) Prevention of arterial thromboembolismincluding patients with mechanical heart valves: 3 - 4.5 INR Coag (PPP) [Relative time] 1.0 {INR} Normal [facility] Comment on above: INR Therapeutic Rang e A) Pre- and Peroperative OAT started two weeks before surgery. NOT HIP SURGERY: 1.5 - 2.5 HIP SURGERY: 2 - 3B) Primary and secondary prevention of venous THROMBOSIS: 2 - 3C) Active venous thrombosis, pulmonary embolismand prevention of recurrent venous thrombosis: 2 - 3D) Prevention of arterial thromboembolismincluding patients with mechanical heart valves: 3 - 4.5 Result Comment: INR Therapeutic Range A) Pre- and Peroperative OAT started two weeks before surgery. NOT HIP SURGERY: 1.5 - 2.5 HIP SURGERY: 2 - 3 B) Primary and secondary prevention of venous THROMBOSIS: 2 - 3 C) Active venous thrombosis, pulmonary embolism and prevention of recurrent venous thrombosis: 2 - 3 D) Prevention of arterial thromboembolism including patients with mechanical heart valves: 3 - 4.5 Performed By: #### C BC, CMP, PT, PTT, BNP, LIPASE, HS TROP, CK #### [address] Lipase [Enzymatic activity/v olume] in Serum or PlasmaOrdered By: Kristen Bailey on 07-23-2024 Lipase [Catalytic activity/Vol] Lipase [Enzymatic activity/volume] in Serum or Plasma 11.0-82.0 [facility] Lipase [Catalytic activity/Vol] 33.0 U/L Normal 11.0-82.0 [facility] Comment on above: Result Comment: PERF ORMED BY: [place] [address] PATHOLOGIST MANAGER OF CASE IRIS GARRETT M.D. Performed By: #### C BC, CMP, PT, PTT, BNP, LIPASE, HS TROP, CK #### [place] [id number] [facility] Natriuretic peptide B [Mass/ Vol]Ordered By: Kristen Bailey on 07-23-2024 Natriuretic peptide B (Bld) [Mass/Vol] BNP ser/plas 5-100 [facility] Partial Thromboplastin Timeo n 07-23-2024 aPTT Coag (Bld) [Time] 32.1 s Normal 25.1-36.5 [facility] Comment on above: Result Comment: A he matocrit value greater than 55% may lead to inaccurate results in coagulation testing. Patients having hematocrit values >55% require a special collection tube for coagulation studies. Please contact the laboratory at [phone] for redraw instructions. PERFORMED BY: [place] [id number] PATHOLOGIST MANAGER OF CASE IRIS GARRETT M.D. Performed By: #### C BC, CMP, PT, PTT, BNP, LIPASE, HS TROP, CK #### [place] [id number] [facility] Prothrombin time (PT)Ordered By: Kristen Bailey on 07-23-2024 PT Coag (PPP) [Time] Prothrombin time (PT) 9.0- 12.9 [facility] Comment on above: A hematocrit value g reater than 55% may lead to inaccurate results in coagulation testing. Patients having hematocrit values >55% require a special collection tube for coagulation studies. Please contact the laboratory at [phone] for redraw instructions. PT Coag (PPP) [Time] 11.5 s Normal 9.0-12.9 [facility] Comment on above: A hematocrit value g reater than 55% may lead to inaccurate results in coagulation testing. Patients having hematocrit values >55% require a special collection tube for coagulation studies. Please contact the laboratory at [phone] for redraw instructions. Result Comment: A he matocrit value greater than 55% may lead to inaccurate results in coagulation testing. Patients having hematocrit values >55% require a special collection tube for coagulation studies. Please contact the laboratory at [phone] for redraw instructions. Performed By: #### C BC, CMP, PT, PTT, BNP, LIPASE, HS TROP, CK #### [facility] [address] [place] [address] Troponin I High Sensitivityo n 07-23-2024 Troponin I High Sensitivity 5 Normal 0-20 [facility] Comment on above: Result Comment: The Troponin units of report have been changed to meet the Chest Pain Accreditation requirement, element EC5.M1l2. Troponin units are changed from pg/ml to ng/L. Also, the decimal is removed and results are in whole numbers. PERFORMED BY: [place] [address] PATHOLOGIST MANAGER OF CASE IRIS GARRETT M.D. Performed By: #### C BC, BMP #### [address] [address] [facility] aPTT in Platelet poor plasma by Coagulation assayOrdered By: Kristen Bailey on 07-23-2024 aPTT Coag (PPP) [Time] Activated partial thromboplastin time (aPTT) in platelet poor plasma by coagulation a 25.1-36.5 [facility] Comment on above: A hematocrit value g reater than 55% may lead to inaccurate results in coagulation testing. Patients having hematocrit values >55% require a special collection tube for coagulation studies. Please contact the laboratory at [phone] for redraw instructions. aPTT Coag (PPP) [Time] 32.1 s 25.1-36.5 [facility] Comment on above: A hematocrit value g reater than 55% may lead to inaccurate results in coagulation testing. Patients having hematocrit values >55% require a special collection tube for coagulation studies. Please contact the laboratory at [phone] for redraw instructions. XR Chest 2 Viewson Exam: XR - CHEST 2 VIEWS Reason for study: Sore throat, cough, congestion, shortness of breath Comparison: None FINDINGS: The heart size is normal. There are coarse perihilar bronchial markings likely reflecting chronic bronchitis. There is a patchy peripheral consolidation in the right lower lobe or lateral segment right middle lobe. No pleural effusion is seen. IMPRESSION: Acute versus chronic bronchitis. Possible developing peripheral infiltrate in the right lower lobe laterally. Short-term follow-up radiography recommended. Dictated on: 01/18/2024 8:22 AM This report has been electronically signed and approved by the interpreting Radiologist. Electronically Signed Magdiel More D.O. 2024-01-18 08:23:42 IMAGING Magdiel More, - 01/18/2024 Exam: XR - CHEST 2 VIEWS Reason for study: Sore throat, cough, congestion, shortness of breath Comparison: None FINDINGS: The heart size is normal. There are coarse perihilar bronchial markings likely reflecting chronic bronchitis. There is a patchy peripheral consolidation in the right lower lobe or lateral segment right middle lobe. No pleural effusion is seen. IMPRESSION: Acute versus chronic bronchitis. Possible developing peripheral infiltrate in the right lower lobe laterally. Short-term follow-up radiography recommended. Dictated on: 01/18/2024 8:22 AM This report has been electronically signed and approved by the interpreting Radiologist. Electronically Signed Magdiel More D.O. 2024-01-18 08:23:42 [facility] XR Chest 2 ViewsOrdered By: Magdiel More on 01-18-2024 [facility] Face-Me Work Phone: XR CHEST 2 VIEWSon XR CHEST 2 VIEWS Exam: XR - CHEST 2 V IEWS Reason for study: Sore throat, cough, congestion, shortness of breath Comparison: None FINDINGS: The heart size is normal. There are coarse perihilar bronchial markings likely reflecting chronic bronchitis. There is a patchy peripheral consolidation in the right lower lobe or lateral segment right middle lobe. No pleural effusion is seen. IMPRESSION: Acute versus chronic bronchitis. Possible developing peripheral infiltrate in the right lower lobe laterally. Short-term follow-up radiography recommended. Dictated on: 01/18/2024 8:22 AM This report has been electronically signed and approved by the interpreting Radiologist. Electronically Signed Magdiel More D.O. 2024-01-18 08:23:42 Normal Not Available XR Chest 2 Viewson Radiology Study observation (narrative) [facility] Office Visiton 12-11-2023 Follow-up visit [id number] JuliaKristinemariel rene Mariel 1960 M Date Provider Department Center 12/11/2023 [facility] Family History Problem Relation Age of Onset Other Mother Heart disease Father Family Status - Relation Status Age at Mother Father Level of Service:[address] [place] OFFICE/OUTPATIENT ESTABLISHED LOW MDM 20 MIN Normal [facility] COVID CepheidOrdered By: Leonela Vallejo on 12-16-2022 SARS-CoV-2 (COVID-19) Ab IA Ql Positive Negative [facility] Comment on above: This is a duplicate [employer] X[employer] Xpress CoV-2/Flu/RSV Plus RNA by RT-PCR result to be used for statistical tracking purpose only. SARS-CoV-2 (COVID-19) RNA ZEV+probe Ql (Unsp spec) [facility] Alanine aminotransferase [En zymatic activity/volume] in Serum or PlasmaOrdered By: Oren Hall on 10-05-2022 ALT [Catalytic activity/Vol] 20 U/L 7-52 [facility] Albumin [Mass/volume] in Ser um or Plasma by Bromocresol green (BCG) dye binding methoOrdered By: Oren Hall on 10-05-2022 Albumin BCG dye [Mass/Vol] 4.4 g/dL 3.5-5.7 [facility] Alkaline phosphatase [Enzyma tic activity/volume] in Serum or PlasmaOrdered By: Oren Hall on 10-05-2022 ALP [Catalytic activity/Vol] 79 U/L 34-104 [facility] Aspartate aminotransferase [ Enzymatic activity/volume] in Serum or PlasmaOrdered By: Oren Hall on 10-05-2022 AST [Catalytic activity/Vol] 14 U/L 13-39 [facility] Basophils Auto (Bld) [#/Vol] Ordered By: Oren Hall on 10-05-2022 Basophils (Bld) [#/Vol] 0.1 10*3/uL 0.0-0.2 [facility] Basophils/100 WBC Auto (Bld) Ordered By: Oren Hall on 10-05-2022 Basophils/100 WBC (Bld) 0.6 % . [facility] Bilirubin Test strip Ql (U)O rdered By: Oren Hall on 10-05-2022 Bilirubin Ql (U) Negative Negative [facility] Bilirubin.total [Mass/volume ] in Serum or PlasmaOrdered By: Oren Hall on 10-05-2022 Bilirubin [Mass/Vol] 0.5 mg/dL 0.3-1.0 [facility] Calcium [Mass/volume] in Ser um or PlasmaOrdered By: Oren Hall on 10-05-2022 Calcium [Mass/Vol] 9.2 mg/dL 8.6-10.3 [facility] Carbon dioxide, total [Moles /volume] in Serum or PlasmaOrdered By: Oren Hall on 10-05-2022 CO2 [Moles/Vol] 28.6 mmol/L 21.0-31.0 [facility] Chloride [Moles/volume] in S luci or PlasmaOrdered By: Oren Hall on 10-05-2022 Chloride [Moles/Vol] 103 mmol/L 98-107 [facility] Color Auto (U)Ordered By: Channing red Isabel on 10-05-2022 Color (U) Yellow Yellow [facility] Creatinine [Mass/volume] in Serum or PlasmaOrdered By: Oren Hall on 10-05-2022 Creatinine [Mass/Vol] 1.16 mg/dL 0.70-1.30 [facility] Eosinophils Auto (Bld) [#/Vo l]Ordered By: Oren Hall on 10-05-2022 Eosinophils (Bld) [#/Vol] 0.0 10*3/uL 0.0-0.45 [facility] Eosinophils/100 WBC Auto (Bl d)Ordered By: Oren Hall on 10-05-2022 Eosinophils/100 WBC (Bld) 0.2 % . [facility] Erythrocyte distribution wid th Auto (RBC) [Ratio]Ordered By: Oren Hall on 10-05-2022 Erythrocyte distribution width (RBC) [Ratio] 14.2 % 12.0-14.8 [facility] Globulin Calc (S) [Mass/Vol] Ordered By: Oren Hall on 10-05-2022 Globulin (S) [Mass/Vol] 3.1 g/dL [facility] Glucose [Mass/volume] in Ser um or PlasmaOrdered By: Oren Hall on 10-05-2022 Glucose [Mass/Vol] 121 mg/dL 70-100 [facility] Comment on above: ADA recommended refe rence rangeRandom Glucose Reference Range is dependent on time and content of last meal. Glucose of more than 200 mg/dL in a nonstressed, ambulatory subject supports the diagnosis of Diabetes Mellitus. Hematocrit Auto (Bld) [Volum e fraction]Ordered By: Oren Hall on 10-05-2022 Hematocrit (Bld) [Volume fraction] 44.9 % 38.8-50.0 [facility] Hemoglobin [Mass/volume] in BloodOrdered By: Oren Hall on 10-05-2022 Hemoglobin (Bld) [Mass/Vol] 15.5 g/dL 13.0-17.0 [facility] Ketones Auto test strip (U) [Mass/Vol]Ordered By: Oren Hall on 10-05-2022 Ketones (U) [Mass/Vol] Negative Negative [facility] Lactate [Moles/volume] in Se rum or PlasmaOrdered By: Oren Hall on 10-05-2022 Lactate [Moles/Vol] 1.2 mmol/L 0.5-2.2 [facility] Leukocytes [#/volume] correc juan for nucleated erythrocytes in Blood by Automated counOrdered By: Oren Hall on 10-05-2022 WBC corrected for nucl RBC Auto (Bld) [#/Vol] 13.2 10*3/uL 4.1-10.5 [facility] Lipase [Enzymatic activity/v olume] in Serum or PlasmaOrdered By: Oren Hall on 10-05-2022 Lipase [Catalytic activity/Vol] 17.0 U/L 11.0-82.0 [facility] Lymphocytes Auto (Bld) [#/Vo l]Ordered By: Oren Hall on 10-05-2022 Lymphocytes (Bld) [#/Vol] 1.5 10*3/uL 1.00-4.8 [facility] Lymphocytes/100 WBC Auto (Bl d)Ordered By: Oren Hall on 10-05-2022 Lymphocytes/100 WBC (Bld) 11.3 % . [facility] MCH Auto (RBC) [Entitic mass ]Ordered By: Oren Hall on 10-05-2022 MCH (RBC) [Entitic mass] 31.1 pg 27.5-35.2 [facility] MCHC Auto (RBC) [Mass/Vol]Or dered By: Oren Hall on 10-05-2022 MCHC (RBC) [Mass/Vol] 34.6 g/dL 32.5-35.6 [facility] MCV Auto (RBC) [Entitic vol] Ordered By: Oren Hall on 10-05-2022 MCV (RBC) [Entitic vol] 90.0 fL 83.5-101 [facility] Monocyte distribution width [Entitic volume] in Blood by AutomatedOrdered By: Oren Hall on 10-05-2022 Monocyte distribution width Auto (Bld) [Entitic vol] 18.44 % 0.00-20.00 [facility] Monocytes Auto (Bld) [#/Vol] Ordered By: Oren Hall on 10-05-2022 Monocytes (Bld) [#/Vol] 0.9 10*3/uL 0.0-0.8 [facility] Monocytes/100 WBC Auto (Bld) Ordered By: Oren Hall on 10-05-2022 Monocytes/100 WBC (Bld) 6.9 % . [facility] Neutrophils Auto (Bld) [#/Vo l]Ordered By: Oren Hall on 10-05-2022 Neutrophils (Bld) [#/Vol] 10.7 10*3/uL 1.8-7.7 [facility] Neutrophils/100 WBC Auto (Bl d)Ordered By: Oren Hall on 10-05-2022 Neutrophils/100 WBC (Bld) 81.0 % . [facility] Nitrite Test strip Ql (U)Ord ered By: Oren Hall on 10-05-2022 Nitrite Ql (U) Negative Negative [facility] No Panel InformationOrdered By: Oren Hall on 10-05-2022 Estimated GFR (CKD-EPI) > 60.0 mL/Min [facility] Creatinine Clearance (Chem 72.56 [facility] Nucleated erythrocytes [Pres ence] in Blood by Automated countOrdered By: Oren Hall on 10-05-2022 Nucleated RBC Auto Ql (Bld) 0.0 /100{WBC} 0-0.5 [facility] Platelet mean volume Auto (B ld) [Entitic vol]Ordered By: Oren Hall on 10-05-2022 Platelet mean volume (Bld) [Entitic vol] 7.0 fL 6.6-10.1 [facility] Platelets Auto (Bld) [#/Vol] Ordered By: Oren Hall on 10-05-2022 Platelets (Bld) [#/Vol] 263 10*3/uL 150-450 [facility] Potassium [Moles/volume] in Serum or PlasmaOrdered By: Oren Hall on 10-05-2022 Potassium [Moles/Vol] 4.7 mmol/L 3.5-5.1 [facility] Protein Auto test strip (U) [Mass/Vol]Ordered By: Oren Hall on 10-05-2022 Protein (U) [Mass/Vol] Negative Negative [facility] Protein [Mass/volume] in Ser um or PlasmaOrdered By: Oren Hall on 10-05-2022 Protein [Mass/Vol] 7.5 g/dL 6.4-8.9 [facility] RBC Auto (Bld) [#/Vol]Ordere d By: Oren Hall on 10-05-2022 RBC (Bld) [#/Vol] 4.99 10*6/uL 3.90-5.60 [facility] Serum or plasma albumin/glob ulin mass ratioOrdered By: Oren Hall on 10-05-2022 Albumin/Globulin [Mass ratio] 1.4 {ratio} [facility] Serum or plasma anion gap de terminationOrdered By: Oren Hall on 10-05-2022 Anion gap [Moles/Vol] 10.1 mmol/L 6.0-15.0 [facility] Sodium [Moles/volume] in Ser um or PlasmaOrdered By: Oren Hall on 10-05-2022 Sodium [Moles/Vol] 137 mmol/L 136-145 [facility] Specific gravity Auto test s trip (U) [Rel density]Ordered By: Oren Hall on 10-05-2022 Specific gravity (U) [Rel density] > 1.050 1.001-1.030 [facility] Urea nitrogen [Mass/volume] in Serum or PlasmaOrdered By: Oren Hall on 10-05-2022 Urea nitrogen [Mass/Vol] 14 mg/dL 7-25 [facility] Urine clarity by refractomet ry automatedOrdered By: Oren Hall on 10-05-2022 Clarity Refractometry automated (U) Clear Clear [facility] Urine glucose measurement by automated test strip (mass/volume)Ordered By: Oren Hall on 10-05-2022 Glucose Auto test strip (U) [Mass/Vol] Normal mg/dL Normal [facility] Urine hemoglobin detection b y automated test stripOrdered By: Oren Hall on 10-05-2022 Hemoglobin Auto test strip Ql (U) Negative Negative [facility] Urine leukocyte esterase det ection by automated test stripOrdered By: Oren Hall on 10-05-2022 Leukocyte esterase Auto test strip Ql (U) Negative Negative [facility] Urobilinogen Auto test strip (U) [Mass/Vol]Ordered By: Oren Hall on 10-05-2022 Urobilinogen (U) [Mass/Vol] Normal mg/dL Normal [facility] WBC Auto (Bld) [#/Vol]Ordere d By: Oren Hall on 10-05-2022 WBC (Bld) [#/Vol] 13.2 10*3/uL 4.1-10.5 [facility] pH Auto test strip (U)Ordere d By: Oren Hall on 10-05-2022 pH (U) 7.0 [pH] 5.0-9.0 [facility] Covid-19 PCR (CVDTBH)on SARS-CoV-2 (COVID-19) RNA ZEV+probe Ql (Unsp spec) Not detected Normal NOT DETECTED [facility] Comment on above: Result Comment: When [...] for this test is supported by the [employer] Manager of Health and Human Service's declaration that [...] used). Performed By: #### C VDTBH #### [facility] [address] [place] [address] Dr. Miriam Ramon INFLUENZA A AND B AGon 02-28 [facility] SEE BELOW Normal [facility] Comment on above: Result Comment: Nega tive for Flu B protein antigen. Infection due to Flu B cannot be ruled out. Flu B antigen in the sample may be below the detection limit of the test. Performed By: #### I NFLUAB #### [facility] [address] [place] [address] Dr. Miriam Ramon INFLUENZA A AG Positive Abnormal NEGATIVE SEE COMMENT [facility] Comment on above: Performed By: #### I NFLUAB #### [facility] [address] [place] [address] Dr. Miriam Ramon INFLUENZA B AG Negative Normal NEGATIVE SEE COMMENT [facility] Comment on above: Performed By: #### I NFLUAB #### [facility] [address] [place] [address] Dr. Miriam Ramon INTERNAL CONTROLS Within Normal Limits Normal Wi thin Normal Limits [facility] Comment on above: Performed By: #### I NFLUAB #### [facility] [address] [address] [address] Miriam Ramon XR CHEST 2 Von 02-28-2022 XR CHEST 2 V EXAMINATION: XR CHES T 2 V HISTORY: COUGH COMPARISON: No relevant [...] by: ALYSSA PANIAGUA Date: 2022-02-28 15:28 Normal [facility] Vital Signs Date Time Vital Sign Value Performing Clinician Facility 09-22-2024 13:24-0400 Body height 175.3 [facility] 09-22-2024 13:24-0400 Body mass index (BMI) [Ratio] 30.13 kg/m2 [facility] 09-22-2024 13:24-0400 Body [facility] 92.53 [facility] 09-14-2024 08:40-0400 Diastolic blood pressure 61 mm[Hg] PHYSICIAN NO [facility] 09-14-2024 08:40-0400 Heart rate 88 /min PHYSICIAN NO [facility] 09-14-2024 08:40-0400 Respiratory rate 18 /min PHYSICIAN NO [facility] 09-14-2024 08:40-0400 SaO2% (BldA) [Mass fraction] 94 % PHYSICIAN NO [facility] 09-14-2024 08:40-0400 Systolic blood pressure 129 mm[Hg] PHYSICIAN NO [facility] 09-14-2024 04:36-0400 Body weight 93.2 kg PHYSICIAN NO [facility] 09-14-2024 03:53-0400 Body temperature 98.2 [degF] PHYSICIAN NO [facility] 09-13-2024 16:04-0400 Body height 175.26 cm PHYSICIAN NO [facility] 09-12-2024 14:21-0400 Diastolic blood pressure 83 mm[Hg] PHYSICIAN NO [facility] 09-12-2024 14:21-0400 Heart rate 90 /min PHYSICIAN NO [facility] 09-12-2024 14:21-0400 Respiratory rate 18 /min PHYSICIAN NO [facility] 09-12-2024 14:21-0400 SaO2% (BldA) [Mass fraction] 93 % PHYSICIAN NO [facility] 09-12-2024 14:21-0400 Systolic blood pressure 154 mm[Hg] PHYSICIAN NO [facility] 09-12-2024 13:15-0400 Body temperature 97.7 [degF] PHYSICIAN NO [facility] 09-12-2024 12:49-0400 Inhaled oxygen flow rate 8 L/min PHYSICIAN NO [facility] 09-12-2024 10:28-0400 Body height 175.26 cm PHYSICIAN NO [facility] 09-12-2024 10:28-0400 Body weight 90.8 kg PHYSICIAN NO [facility] 08-09-2024 15:45-0400 Body height 175.3 cm Morgan Morrell DO Work Phone: [facility] 08-09-2024 15:45-0400 Body mass index (BMI) [Ratio] 30.13 kg/m2 Morgan Morrell DO Work Phone: [facility] 08-09-2024 15:45-0400 Body weight 92.53 kg Morgan Morrell DO Work Phone: [facility] 08-09-2024 15:45-0400 Diastolic blood pressure 70 mm[Hg] Morgan Morrell DO Work Phone: [facility] 08-09-2024 15:45-0400 Systolic blood pressure 126 mm[Hg] Morgan Morrell DO Work Phone: [facility] 07-24-2024 14:02-0400 Body temperature 98.3 [degF] PHYSICIAN NO [facility] 07-24-2024 14:02-0400 Diastolic blood pressure 88 mm[Hg] PHYSICIAN NO [facility] 07-24-2024 14:02-0400 Heart rate 76 /min PHYSICIAN NO [facility] 07-24-2024 14:02-0400 Respiratory rate 20 /min PHYSICIAN NO [facility] 07-24-2024 14:02-0400 SaO2% (BldA) [Mass fraction] 97 % PHYSICIAN NO [facility] 07-24-2024 14:02-0400 Systolic blood pressure 154 mm[Hg] PHYSICIAN NO [facility] 07-24-2024 00:50-0400 Body height 175.26 cm PHYSICIAN NO [facility] 07-24-2024 00:50-0400 Body weight 94.1 kg PHYSICIAN NO [facility] 01-17-2024 10:23-0400 Body temperature 98.8 [degF] Loren Didion MATERIALS MANAGEMENT MANAGER Work Phone: [facility] 01-17-2024 10:23-0400 Body weight 92 kg Loren Didion MATERIALS MANAGEMENT MANAGER Work Phone: [facility] 01-17-2024 10:23-0400 Diastolic blood pressure 88 mm[Hg] Loren Didion MATERIALS MANAGEMENT MANAGER Work Phone: [facility] 01-17-2024 10:23-0400 Heart rate 86 /min Loren Didion MATERIALS MANAGEMENT MANAGER Work Phone: [facility] 01-17-2024 10:23-0400 SaO2% (BldA) [Mass fraction] 96 % Loren Didion MATERIALS MANAGEMENT MANAGER Work Phone: [facility] 01-17-2024 10:23-0400 Systolic blood pressure 124 mm[Hg] Loren Didion MATERIALS MANAGEMENT MANAGER Work Phone: [facility] 01-24-2023 13:19-0400 Body height 172.72 cm PHYSICIAN NO [facility] 01-24-2023 13:19-0400 Body temperature 98.4 [degF] PHYSICIAN NO [facility] 01-24-2023 13:19-0400 Body weight 94 kg PHYSICIAN NO [facility] 01-24-2023 13:19-0400 Diastolic blood pressure 77 mm[Hg] PHYSICIAN NO [facility] 01-24-2023 13:19-0400 Heart rate 100 /min PHYSICIAN NO [facility] 01-24-2023 13:19-0400 Respiratory rate 18 /min PHYSICIAN NO [facility] 01-24-2023 13:19-0400 SaO2% (BldA) [Mass fraction] 97 % PHYSICIAN NO [facility] 01-24-2023 13:19-0400 Systolic blood pressure 141 mm[Hg] PHYSICIAN NO [facility] 01-22-2023 11:45-0400 Body height 175.26 cm PHYSICIAN NO [facility] 01-22-2023 11:45-0400 Body temperature 97.3 [degF] PHYSICIAN NO [facility] 01-22-2023 11:45-0400 Body weight 94.1 kg PHYSICIAN NO [facility] 01-22-2023 11:45-0400 Diastolic blood pressure 70 mm[Hg] PHYSICIAN NO [facility] 01-22-2023 11:45-0400 Heart rate 91 /min PHYSICIAN NO [facility] 01-22-2023 11:45-0400 Respiratory rate 18 /min PHYSICIAN NO [facility] 01-22-2023 11:45-0400 SaO2% (BldA) [Mass fraction] 95 % PHYSICIAN NO [facility] 01-22-2023 11:45-0400 Systolic blood pressure 140 mm[Hg] PHYSICIAN NO [facility] 12-18-2022 13:21-0400 Body temperature 98.2 [degF] PHYSICIAN NO [facility] 12-18-2022 13:21-0400 Diastolic blood pressure 78 mm[Hg] PHYSICIAN NO [facility] 12-18-2022 13:21-0400 Heart rate 96 /min PHYSICIAN NO [facility] 12-18-2022 13:21-0400 Respiratory rate 18 /min PHYSICIAN NO [facility] 12-18-2022 13:21-0400 SaO2% (BldA) [Mass fraction] 98 % PHYSICIAN NO [facility] 12-18-2022 13:21-0400 Systolic blood pressure 163 mm[Hg] PHYSICIAN NO [facility] 12-18-2022 13:18-0400 Body height 175.26 cm PHYSICIAN NO [facility] 12-18-2022 13:18-0400 Body weight 92 kg PHYSICIAN NO [facility] 12-16-2022 13:27-0400 Body height 175.26 cm PHYSICIAN NO [facility] 12-16-2022 13:27-0400 Body temperature 97.7 [degF] PHYSICIAN NO [facility] 12-16-2022 13:27-0400 Body weight 91.7 kg PHYSICIAN NO [facility] 12-16-2022 13:27-0400 Diastolic blood pressure 86 mm[Hg] PHYSICIAN NO [facility] 12-16-2022 13:27-0400 Heart rate 99 /min PHYSICIAN NO [facility] 12-16-2022 13:27-0400 Respiratory rate 18 /min PHYSICIAN NO [facility] 12-16-2022 13:27-0400 SaO2% (BldA) [Mass fraction] 98 % PHYSICIAN NO [facility] 12-16-2022 13:27-0400 Systolic blood pressure 142 mm[Hg] PHYSICIAN NO [facility] 10-05-2022 14:42-0400 Body temperature 97.5 [degF] PHYSICIAN NO [facility] 10-05-2022 14:42-0400 Diastolic blood pressure 98 mm[Hg] PHYSICIAN NO [facility] 10-05-2022 14:42-0400 Heart rate 87 /min PHYSICIAN NO [facility] 10-05-2022 14:42-0400 Respiratory rate 16 /min PHYSICIAN NO [facility] 10-05-2022 14:42-0400 SaO2% (BldA) [Mass fraction] 99 % PHYSICIAN NO [facility] 10-05-2022 14:42-0400 Systolic blood pressure 169 mm[Hg] PHYSICIAN NO [facility] 10-05-2022 11:27-0400 Body height 175.26 cm PHYSICIAN NO [facility] 10-05-2022 11:27-0400 Body weight 90.71 kg PHYSICIAN NO [facility] Encounters Encounter Date Encounter Type Care Provider Facility Start: 10-06-2024 End: 10-06-2024 Postop follow up visit related to original px Morgan Morrell DO Work Phone: [facility] Comment on above: Calculus of gallblad kevin with acute on chronic cholecystitis without obstruction (Primary Dx) Start: 10-06-2024 End: 10-06-2024 ambulatory MORGAN MORRELL Not Available Start: 10-06-2024 End: 10-06-2024 Telephone encounter Morgan Morrell DO Work Phone: [facility] Start: 09-22-2024 End: 09-22-2024 ambulatory MORGAN MORRELL Not Available Start: 09-22-2024 End: 09-22-2024 Postop follow up visit related to original px Morgan Morrell DO Work Phone: [facility] Comment on above: Calculus of gallblad kevin with acute on chronic cholecystitis without obstruction (Primary Dx) Start: 09-14-2024 End: 09-14-2024 External Result Encounter Morgan Morrell DO Work Phone: [facility] Unsolicited Start: 09-14-2024 End: 09-14-2024 External Result Encounter Morgan Morrell DO Work Phone: [facility] Start: 09-13-2024 End: 09-13-2024 External Result Encounter Adam Ashley MD Work Phone: [facility]solic[facility] Start: 09-13-2024 End: 09-13-2024 External Result Encounter Adam Ricardo MD Work Phone: [facility] Start: 09-13-2024 End: 09-14-2024 Evaluation and management of inpatient Adam Ashley MD -[facility] Work Phone: Start: 09-12-2024 End: 09-12-2024 External Result Encounter Morgan Morrell DO Work Phone: [facility] Start: 09-12-2024 End: 09-12-2024 External Result Encounter Morgan Morrell DO Work Phone: [facility] Start: 09-12-2024 End: 09-12-2024 Admission to same day surgery center Morgan Morrell DO -[facility] Start: 09-12-2024 End: 09-12-2024 ambulatory Morgan Morrell Facility:[facility] Start: 08-29-2024 End: 08-29-2024 Patient encounter procedure PHYSICIAN NO [facility] Work Phone: Start: 08-29-2024 End: 08-29-2024 ambulatory PHYSICIAN NO [facility] Work Phone: Start: 08-29-2024 Encounter for preprocedural laboratory examination Morgan Morrell [facility] Start: 08-29-2024 End: 08-29-2024 External Result Encounter Morgan Morrell DO Work Phone: [facility] Unsolic[facility] Start: 08-29-2024 End: 08-29-2024 External Result Encounter Morgan Morrell DO Work Phone: [facility]solic[facility] Start: 08-09-2024 End: 08-09-2024 ambulatory MORGAN MORRELL Not Available Start: 08-09-2024 End: 08-09-2024 Office outpatient visit 25 minutes Morgan Morrell DO Work Phone: [facility] Comment on above: Calculus of gallblad kevin with acute on chronic cholecystitis without obstruction (Primary Dx) Start: 07-27-2024 End: 07-27-2024 ambulatory ARASH BARRY [facility] Start: 07-24-2024 End: 07-24-2024 ambulatory PHYSICIAN NO [facility] Start: 07-24-2024 End: 07-24-2024 Evaluation and management of inpatient PHYSICIAN NO [facility] Work Phone: Start: 07-24-2024 End: 07-24-2024 observation encounter PHYSICIAN NO [facility] Work Phone: Start: 01-20-2024 End: 01-20-2024 Telephone encounter Niurka Maurice MA [facility] Start: 01-19-2024 End: 01-19-2024 Telephone encounter Loren Newell MATERIALS MANAGEMENT MANAGER Work Phone: [facility] Start: 01-17-2024 End: 01-17-2024 Office outpatient visit 25 minutes Loren Newell MATERIALS MANAGEMENT MANAGER Work Phone: [facility] Comment on above: Acute cough (Primary Dx); Lower respiratory infection; Shortness of breath; Other fatigue; Acute bilateral low back pain without sciatica Start: 01-17-2024 End: 01-17-2024 ambulatory LOREN NEWELL Not Available Start: 12-11-2023 End: 12-11-2023 ambulatory MERVAT PETTIT [facility] Start: 01-24-2023 End: 01-24-2023 Emergency department patient visit PHYSICIAN NO [facility] Work Phone: Start: 01-22-2023 End: 01-22-2023 Emergency department patient visit PHYSICIAN NO [facility] Work Phone: Start: 12-18-2022 End: 12-18-2022 Emergency department patient visit PHYSICIAN NO [facility] Work Phone: Start: 12-16-2022 End: 12-16-2022 Emergency department patient visit PHYSICIAN NO [facility] Work Phone: Start: 10-05-2022 End: 10-05-2022 Emergency department patient visit PHYSICIAN NO [facility] Work Phone: Start: 02-28-2022 End: 02-28-[address] DOCTOR ROGERS Facility:[facility] Start: 01-22-2022 End: 01-23-2022 ambulatory MERVAT PETTIT Facility:[facility] Start: 09-20-2021 ambulatory MERVAT PETITT Facility:[facility] Start: 11-09-2017 End: 11-10-2017 Patient encounter DEFAULT PHYSICIAN Facility:[facility] Start: 03-20-2017 End: 03-21-2017 Ambulatory Alton Munguia Facility:CD:[id number] Start: 01-05-2017 End: 01-06-2017 Patient encounter DEFAULT PHYSICIAN Facility:[facility] Procedures Date Procedure Procedure Detail Performing Clinician Start: 09-14-2024 Blood count hemoglobin Morgan Morrell DO Work Phone: Start: 09-13-2024 Blood count hemoglobin Morgan Morrell DO Work Phone: Start: 09-13-2024 Blood count hemoglobin Adam Ashley MD Work Phone: Start: 09-13-2024 Basic metabolic pane l calcium total Adam Ashley MD Work Phone: Start: 09-13-2024 Complete blood count with white cell differential, automated Adam Ashley MD Work Phone: Start: 09-13-2024 Computed tomography of abdomen and pelvis with contrast PHYSICIAN NO [facility] Start: 09-12-2024 Laparoscopic cholecystectomy PHYSICIAN NO [facility] Start: 09-12-2024 Assay of amylase Morgan Morrell DO Work Phone: Start: 08-29-2024 Basic metabolic pane l calcium total Morgan Morrell DO Work Phone: Start: 08-29-2024 Complete blood count with white cell differential, automated Morgan Morrell DO Work Phone: Start: 07-23-2024 Plain chest X-ray PHYSI MINNIE NO [facility] Start: 07-23-2024 US scan of gallbladder PHYSICIAN NO [facility] Start: 12-16-2022 SARS-CoV-2, Influenz a & RSV (PCR) PHYSICIAN NO [facility] Start: 10-05-2022 Computed tomography of abdomen and pelvis with contrast PHYSICIAN NO [facility] Plan of Treatment Date Care Activity Detail Author Start: 11-21-2024 [facility] Start: 10-06-2024 End: 10-06-2024 Patient encounter procedure 10/06/2024 3:30 PM EDT Office Visit [facility] [address] [place] [address] Morgan Morrell, DO [address] [place] [address] [facility] Start: 09-22-2024 End: 09-22-2024 Patient encounter procedure 09/22/2024 1:15 PM EDT Office Visit [facility] [address] [place] [id number] Morgan Morrell, DO [address] [place] [address] [facility] Start: 09-14-2024 [facility] Start: 09-13-2024 Hospital admission [facility] Start: 09-12-2024 End: 09-12-2024 [facility] Start: 07-24-2024 [facility] Start: 07-24-2024 Referral to general surgeon [facility] Start: 07-24-2024 [facility] Start: 07-24-2024 Hospital admission [facility] Start: 02-02-2024 End: 01-18-2025 XR Chest 2 Views XR chest 2 views Imaging Routine Pneumonia of right lower lobe due to infectious organism Expected: 02/02/2024, Expires: 01/18/2025 [facility] Work Phone: Comment on above: Expected: 02/02/2024 , Expires: 01/18/2025 Start: 1977 Pneumococcal Vaccine : 65+ Years (1 of 2 - PCV) Pneumococcal Vaccine: 65+ Years (1 of 2 - PCV) [facility] Start: 1960 Screening for malign ant neoplasm of colon [facility] Patient Education [facility] Work Phone: Patient referral [facility] Work Phone: Payers Date Payer Category Payer Medicare MEDICARE [id number] 2023 Medicare [id number] 2023 Private Health Insurance [facility] [place] [id number] 2022 Unknown [id number] 1959 Self-pay 1959 Unknown [id number] 1958 Unknown [id number] 1958 Unknown [id number] 1958 Unknown [id number] 593 1958 Unknown [id number]. 1259 1958 Unknown [id number]. 1259 1958 Unknown [id number]. 1259 1958 Unknown [id number]. 1259 1958 Unknown [id number]. 1259 Unknown Unknown [place] BC/BS [id number] Unknown [id number] 531 Unknown [id number] 531 Unknown [id number] 531 Unknown [id number] 531 Social History Date Type Detail Facility Start: 12-16-2022 End: 08-29-2024 Tobacco smoking status [facility] Smoker (finding) [facility] Start: 1960 Sex Assigned At Male F [facility] Start: 01-17-2024 End: 09-13-2024 Tobacco smoking status [facility] Smokes tobacco daily [facility] History of tobacco use Cigarette Smoker [facility] Start: 01-17-2024 Tobacco use and exposure Smokeless tobacco non-user [facility] Start: 01-17-2024 End: 09-22-2024 History of Social function [facility] Start: 01-17-2024 End: 09-22-2024 Tobacco use panel [facility] Start: 1960 Sex assigned at Not on file [facility] Start: 07-24-2024 End: 08-30-2024 Sex Male (finding) [facility] Start: 08-08-2024 End: 09-22-2024 Alcoholic beverage intake [facility] Healthcare Goals Date Patient Goal Desired Activity /State Functional Status Date Assessment Result Facility 09-14-2024 Functional status Patient at Baseline [facility] Work Phone: 07-24-2024 Functional status Patient at Baseline [facility] Work Phone: Mental Status Date Assessment Result Facility 09-14-2024 Cognitive function Cognitive Sta tus Patient at Baseline [facility] Work Phone: 07-24-2024 Cognitive function Cognitive Sta tus Patient at Baseline [facility] Work Phone: Clinical Notes 01-22-2022 to 10-06-2024 Telephone Encounter - Kyra oYder - 10/06/2024 3:49 PM EDTTelephone Encounter - Kyra Yoder - 10/06/2024 3:49 PM EDTPaul Rut Morrell DO - 10/06/2024 3:30 PM EDT Note Date & Type Note Facility 10-06-2024 Telephone encount er Note Return to work [facility] 10-06-2024 Miscellaneous Notes Formattin g of this note might be different from the original. Return to work documented in this encounter [facility] 10-06-2024 History of Presen t illness Narrative Images from the original note were not included. Deion Dumont 1960 Deion Dumont is a 63 y.o. male presents for 3rd pow lap aron HPI: HPI Patient is so happy about the results of surgery. He has not had any pain. He is eating without any difficulty. He is having regular bowel movements. Prior to surgery was three months of hell from the pain and upset stomach. He is back on his blood thinners. He did not have any problems or pain or issues with that. OBJECTIVE: Physical Exam Constitutional: Appearance: Normal appearance. He is not toxic-appearing. Cardiovascular: Rate and Rhythm: Regular rhythm. Abdominal: General: There is no distension. Tenderness: There is no abdominal tenderness. Comments: Incisions are clean dry and intact no hernia ASSESSMENT AND PLAN: Assessment/Plan Diagnoses and all orders for this visit: Calculus of gallbladder with acute on chronic cholecystitis without obstruction Status post laparoscopic cholecystectomy etcetera. He can return to work with full activity on Thursday. He is very happy about the results of surgery. There was any issues or concerns I am happy to see him back otherwise he is discharged from my care. If he has to have another surgery I would recommend him go off the Effient at least 7 days, clearly he had a delayed bleed into the mesentery which is highly unusual, and delayed bleeds are the Hallmark of Effient and Brilinta from my experience doing emergency surgery on patients with those medications. No follow-ups on file. documented in this encounter [facility] 09-22-2024 History of Presen t illness Narrative Images from the original note were not included. Deion Dumont 1960 Deion Dumont is a 63 y.o. male presents for 1st po Lap aron HPI: HPI Patient said he feels really good. Feels much better than before surgery. The pain and issues that he was having before surgery are resolved. He is lost about 20 lb by changing his diet as well. He has not feeling bloated like it was before. He has not having any nausea or vomiting. He has not having any fevers chills or sweats. He has no pain whatsoever. He has not having any shortness of breath or chest pain or lightheadedness or feeling like he is going to pass out. He only got very minimal bruising at the lower right abdomen. He is really happy about the results of surgery. He is having regular bowel movements no loose stool or diarrhea. OBJECTIVE: Physical Exam Constitutional: Appearance: Normal appearance. He is not toxic-appearing. Cardiovascular: Rate and Rhythm: Regular rhythm. Abdominal: General: There is no distension. Tenderness: There is no abdominal tenderness. Comments: Incisions are clean dry and intact scant ecchymosis lower right abdomen. Abdomen is totally soft nontender nondistended. ASSESSMENT AND PLAN: Assessment/Plan Diagnoses and all orders for this visit: Calculus of gallbladder with acute on chronic cholecystitis without obstruction Status post laparoscopic cholecystectomy secondary to chronic calculous cholecystitis. Great improvement in preoperative symptoms. Patient was on Effient, he did have a bleed into the mesentery of his small bowel, that was short-lived and controlled. He did not have any hemoperitoneum. He started taking his aspirin several days ago without any difficulty. He can start taking his Effient again now. 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 He said up his work documentation with my office. I will see him again in 2 weeks and he can have no restriction after that time. If any issues or concerns she will contact me. No follow-ups on file. documented in this encounter [facility] 09-14-2024 Discharge summary Note Date/Time September 14, 2024 8:48am [facility] [address] [place] [address] Discharge Summary Signed Patient: Deion Dumont MR#: [id number] : 1960 Acct:[id number] Age/Sex: 63 / M Adm Date: 5 Loc: Room: 0C1285-[address]: Adam Ashley MD Copies to: MD Morgan Wu DO Richard L Kendall, MD~ Providers Date of Discharge: 09/14/24 Discharging Provider: Morgan Morrell Primary Care Provider: Stanley Muñoz Discharge Diagnosis (1) Mesenteric hematoma: Final Diagnosis Final Discharge Diagnosis: Mesenteric hematoma Status post laparoscopic cholecystectomy Acute blood loss causing near syncope and short-lived pain episode Summary Hospital Course Hospital course: Patient was admitted post operative with the above issues. Hemoglobin remained stable. Hemodynamically he remained stable. His hematoma is in a self-contained location and will resorb will be very difficult and more damaging to try to drain. He was tolerating his diet and having bowel movements and not having any pain or requiring any pain medications at time of discharge. I reiterated his discharge instructions from for up activity restriction, bathing,medication usage. Will hold off on the Effient until I see him in the office next week. He understands his discharge instructions and if worsening or changes contact the office next Time Spent with Patient Time spent providing/coordinating discharge services (# min): 15 Discharge Plan Discharge Plan Patient Disposition: Home Additional Instructions: DISCHARGE INSTRUCTIONS FOR GENERAL SURGERY YOUR ACTIVITY MAY INCLUDE: -[Going up and down stairs slowly.] -[Walking around the house or outside if the weather is satisfactory.] -[No driving until you are seen in office and cleared for driving.] -Light housework or light work permitted in [2 weeks]. -Heavy lifting permitted [4 weeks] At your first office visit we will discuss: [Return to work, return to sports, return to exercise, etc.] WOUND CARE/INCISION CARE: -Keep incision clean and dry -[Showering is okay, no tub baths] -[Is it common to feel pulling or sharp sticking sensations in the area of incision, these sensations are a part of the normal healing process.] -[If you develop fever, increasing pain, redness, or swelling around the incision, please notify our office] MEDICATION -[Resume all previous medications that you were taking for problems unrelated to your surgery, unless informed otherwise. If there are any problems with this, please call the original prescribing doctor. If you have any other questions regarding medications, please call our office.] -[Over the counter medications such as Acetaminophen, Ibuprofen, Naproxen, and others may be used as directed for pain unless a prescription was provided.] You will probably see a a lot of bruising at the back or side do not be alarmed. Follow-up in office with Dr. Morrell previously scheduled. If any issues or concerns contact office or if severe pain or passing out go to emergency room Instructions: Know your Meds Prescriptions: Continued tizanidine 4 mg tablet 4 mg PO DAILY PRN (Reason: pain) Patient Comments: for pain, and sleep rosuvastatin 40 mg tablet 40 mg PO QHS Patient Comments: confirmed with pt by HENRY Shipley 07/24/24 gabapentin 600 mg tablet 600 mg PO .prn Patient Comments: TAKE 1 TABLET BY MOUTH TWICE DAILY NEEDED FOR NERVE PAIN tramadol 50 mg tablet 50 mg PO DAILY PRN (Reason: pain) Patient Comments: TAKE 1 TO 2 TABLETS BY MOUTH TWICE DAILY NEEDED FOR PAIN pramipexole 0.5 mg tablet 0.5 mg PO DAILY Patient Comments: confirmed with pt by HENRY Shipley 07/24/24 carvedilol [Coreg] 6.25 mg Tablet 6.25 mg PO BID Patient Comments: confirmed with pt by HENRY Shipley 07/24/24 Rx Instructions: must administer with a meal/food oxycodone-acetaminophen [Endocet] 7.5-325 mg tablet 1 tab PO Q6HR PRN (Reason: pain) 7 Days Qty: 30 0RF acetaminophen [Tylenol Extra Strength] 500 mg tablet 1,000 mg PO Q6HR PRN (Reason: pain) aspirin 81 mg tablet 81 mg PO DAILY Held prasugrel HCl 10 mg tablet 10 mg PO DAILY Hold Instructions: Resume on 09/20/24. Hold Effient until seen in the office. May restart aspirin Patient Comments: TAKE 1 TABLET BY MOUTH IN THE MORNING Continuity of Care Document Health Concerns: A [facility] screening has identified you as FRAIL or AT RISK FOR FRAILTY. This puts you at a higher risk for infection, illness, falls,and other injuries. Here are four ways to help you reduce your risk of frailty: 1. IDENTIFY EARLY SIGNS OF FRAILTY ? Discuss contributing factors and concerns with your doctor 2. BE ACTIVE ? Walking and light strengthening exercises will help reduce weakness 3. EAT WELL ? Aim for three healthy meals a day that are high in protein 4. THINK POSITIVE ? Keep your mind active by being sociable and continuing to learn References: Stay Strong: Four Ways to Beat the Frailty Riskhttps://www.[facility].org/health/wellness-a nd-prevention/mjfw-wralzc-atra-ctry-qt-ovcz-the-frail ty-risk Exam Physical Exam Vital Signs: Patient says that he is doing great. He has no pain whatsoever. He is not taking any pain medications. Not feeling lightheaded or like he is going to pass out. He has been eating without difficulty. Good good bowel movements morning. He feels very comfortable going home. Temp Pulse Resp BP Pulse Ox O2 Del Method 98.2 F 74 14 111/57 L 93 L Room Air 09/14/24 03:53 09/14/24 03:53 09/14/24 03:53 09/14/24 03:53 09/14/24 03:53 09/14/24 03:53 Narrative: Patient is comfortable conversive pleasant totally nontoxic and not in any discomfort at all. His heart rate is 72. Eyes are without scleral icterus. Heart is regular rate rhythm. Lungs are clear. Abdomen is soft is nontender nondistended there is no ecchymosis Diagnostic Studies Completed and Pending Studies Labs on day of discharge: 09/14/24 03:32: Hgb 10.3 L 09/13/24 19:39: Hgb 10.1 L 09/13/24 10:37: Hgb 10.4 L, Hct 30.4 L Documented By: Morgan Morrell DO 09/14/24 0845 Signed By: <Electronically signed by DO Morgan Morrell> 09/14/24 0848 [facility] Work Phone: [phone]) 122-656906-25-2025 [place] [address] Discharge Summary Signed Patient: Deion Dumont MR#: [id number] : 1960 Acct:[id number] Age/Sex: 63 / M Adm Date: 5 Loc: Room: [address] [place] [address]: Adam Ashley MD Copies to: MD Morgan Wu DO Richard L Kendall, MD~ Providers Date of Discharge: 09/14/24 Discharging Provider: Morgan Morrell Primary Care Provider: Stanley Muñoz Discharge Diagnosis (1) Mesenteric hematoma: Final Diagnosis Final Discharge Diagnosis: Mesenteric hematoma Status post laparoscopic cholecystectomy Acute blood loss causing near syncope and short-lived pain episode Summary Hospital Course Hospital course: Patient was admitted post operative with the above issues. Hemoglobin remained stable. Hemodynamically he remained stable. His hematoma is in a self-contained location and will resorb will be very difficult and more damaging to try to drain. He was tolerating his diet and having bowel movements andnot having any pain or requiring any pain medications at time of discharge. I reiterated his discharge instructions from for up activity restriction, bathing,medication usage. Will hold off on the Effient until I see him in the office next week. He understands his discharge instructions and if worsening or changes contact the office next Time Spent with Patient Time spent providing/coordinating discharge services (# min): 15 Discharge Plan Discharge Plan Patient Disposition: Home Additional Instructions: DISCHARGE INSTRUCTIONS FOR GENERAL SURGERY YOUR ACTIVITY MAY INCLUDE: -[Going up and down stairs slowly.] -[Walking around the house or outside if the weather is satisfactory.] -[No driving until you are seen in office and cleared for driving.] -Light housework or light work permitted in [2 weeks]. -Heavy lifting permitted [4 weeks] At your first office visit we will discuss: [Return to work, return to sports, return to exercise, etc.] WOUND CARE/INCISION CARE: -Keep incision clean and dry -[Showering is okay, no tub baths] -[Is it common to feel pulling or sharp sticking sensations in the area of incision, these sensations are a part of the normal healing process.] -[If you develop fever, increasing pain, redness, or swelling around the incision, please notify our office] MEDICATION -[Resume all previous medications that you were taking for problems unrelated to your surgery, unless informed otherwise. If there are any problems with this, please call the original prescribing doctor. If you have any other questions regarding medications, please call our office.] -[Over the counter medications such as Acetaminophen, Ibuprofen, Naproxen, and others may be used as directed for pain unless a prescription was provided.] You will probably see a a lot of bruising at the back or side do not be alarmed. Follow-up in office with Dr. Morrell previously scheduled. If any issues or concerns contact office or if severe pain or passing out go to emergency room Instructions: Know your Meds Prescriptions: Continued tizanidine 4 mg tablet 4 mg PO DAILY PRN (Reason: pain) Patient Comments: for pain, and sleep rosuvastatin 40 mg tablet 40 mg PO QHS Patient Comments: confirmed with pt by HENRY Shipley 07/24/24 gabapentin 600 mg tablet 600 mg PO .prn Patient Comments: TAKE 1 TABLET BY MOUTH TWICE DAILY NEEDED FOR NERVE PAIN tramadol 50 mg tablet 50 mg PO DAILY PRN (Reason: pain) Patient Comments: TAKE 1 TO 2 TABLETS BY MOUTH TWICE DAILY NEEDED FOR PAIN pramipexole 0.5 mg tablet 0.5 mg PO DAILY Patient Comments: confirmed with pt by HENRY Shipley 07/24/24 carvedilol [Coreg] 6.25 mg Tablet 6.25 mg PO BID Patient Comments: confirmed with pt by HENRY Shipley 07/24/24 Rx Instructions: must administer with a meal/food oxycodone-acetaminophen [Endocet] 7.5-325 mg tablet 1 tab PO Q6HR PRN (Reason: pain) 7 Days Qty: 30 0RF acetaminophen [Tylenol Extra Strength] 500 mg tablet 1,000 mg PO Q6HR PRN (Reason: pain) aspirin 81 mg tablet 81 mg PO DAILY Held prasugrel HCl 10 mg tablet 10 mg PO DAILY Hold Instructions: Resume on 09/20/24. Hold Effient until seen in the office. May restart aspirin Patient Comments: TAKE 1 TABLET BY MOUTH IN THE MORNING Continuity of Care Document Health Concerns: A [facility] screening has identified you as FRAIL or AT RISK FOR FRAILTY. This puts you at a higher risk for infection, illness, falls,and other injuries. Here are four ways to help you reduce your risk of frailty: 1. IDENTIFY EARLY SIGNS OF FRAILTY ? Discuss contributing factors and concerns with your doctor 2. BE ACTIVE ? Walking and light strengthening exercises will help reduce weakness 3. EAT WELL ? Aim for three healthy meals a day that are high in protein 4. THINKPOSITIVE ? Keep your mind active by being sociable and continuing to learn References: Stay Strong:Four Ways to Beat the Frailty Riskhttps://www.[facility].org/health/wdgdpfgn-pzp-jlavrdwxzb/sta u-sozxdo-xtwe-ibcv-yw-whte-ekk-okpahpo-mtks Exam Physical Exam Vital Signs: Patient says that he is doing great. He has no pain whatsoever. He is not taking any pain medications. Not feeling lightheaded or like he is going to pass out. He has been eating without difficulty. Good good bowel movements morning. He feels very comfortable going home. Temp Pulse Resp BP Pulse Ox O2 Del Method 98.2 F 74 14 111/57 L 93 L Room Air 09/14/24 03:53 09/14/24 03:53 09/14/24 03:53 09/14/24 03:53 09/14/24 03:53 09/14/24 03:53 Narrative: Patient is comfortable conversive pleasant totally nontoxic and not in any discomfort at all. His heart rate is 72. Eyes are without scleral icterus. Heart is regular rate rhythm. Lungs are clear. Abdomen is soft is nontender nondistended there is no ecchymosis Diagnostic Studies Completed and Pending Studies Labs on day of discharge: 09/14/24 03:32: Hgb 10.3 L 09/13/24 19:39: Hgb 10.1 L 09/13/24 10:37: Hgb 10.4 L, Hct 30.4 L Documented By: Morgan Morrell DO 09/14/24 0845 Signed By: 09/14/24 0848 [facility]06-24-2025 History and physical note Author Morgan Morrell [facility] Note Date/Time September 13, 2024 12:0 1pm [facility] [address] [place] [address] General Surgery H&P Signed with Addenda Patient: Deion Dumont MR#: [id number] : 1960 Acct:[id number] Age/Sex: 63 / M Adm Date: 5 Loc: Room: [address] [place] [address] Type: ADM IN Attending Dr: Adam Ashley MD Copies to: MD Morgan Wu DO Richard L Kendall, MD~ ADDENDUM1 i checked on pt, Hgb stable, HR 75 BP 125/77. no pain at all. I d/w him and his and dtr. will h/l iv, increase diet, recheck labs tonight and tomorrow, and likely dc home tomorrow if cont stable. Addendum Documented By: DO Morgan Morrell 09/13/24 1201 Addendum Signed By: <Electronically signed by DO Morgan Morrell> 09/13/24 1201 Date of Service: 09/13/2024 HPI History of Present Illness HPI: Mr. Dumont is a 63 year old male Who had a cholecystectomy yesterday. He is on Effient for his cardiac disease he believes he has been off of it for 5 days. He said that last night everything was going fine, then he had a wave of pain and felt like he was goingto pass out. He has no pain at all now besides a little soreness at the incisions if he coughs. He is not having any pain or discomfort. He is not having any nausea or vomiting. Is not having any fevers chills or sweats. He feels pretty normal. He is little bit hungry. He is not feeling lightheaded orshort of breath or like he is going to pass out. He is not having any chest pain. No breathing issues. Review of Systems Review of Systems All other systems reviewed & are negative unless noted below or in HPI [facility] Medical History (Updated 09/13/24 @ 09:07 by Morgan Morrell DO) Smoker Arthritis Back pain History of deviated nasal septum surgery BPH (benign prostatic hyperplasia) Hypercholesteremia Restless leg syndrome HTN (hypertension) Heart attack Surgical History (Updated 09/13/24 @ 00:01 by Bita Cannon RN) History of cholecystectomy History of cardiac catheterization x2 Hx of heart artery stent History of appendectomy History of tonsillectomy Family History Mother Cancer Father Heart disease Paternal Grandmother Heart disease Social History Smoking Status: Current every day smoker Tobacco Type: cigarettes Substance Use Type: None Substance Abuse Comment: etoh occasionally Social History Comments: grandchildren Meds Medications and Allergies Allergies No Known Allergies Allergy (Verified 09/13/24 00:00) Home Medications carvedilol 6.25 mg tablet (Coreg) 6.25 mg PO BID 01/24/23 [History Confirmed 09/13/24] gabapentin 600 mg tablet 600 mg PO .prn pain 01/24/23 [History Confirmed 09/13/24] pramipexole 0.5 mg tablet 0.5 mg PO DAILY restless leg 01/24/23 [History Confirmed 09/13/24] prasugrel HCl 10 mg tablet 10 mg PO DAILY blood thinner effient 01/24/23 [History Confirmed 09/13/24] Held on 09/12/24. Instructions: Resume on 09/15/24. restart on 09/15 tramadol 50 mg tablet 50 mg PO DAILY PRN pain 01/24/23 [History Confirmed 09/13/24] tizanidine 4 mg tablet 4 mg PO DAILY PRN pain 07/23/24 [History Confirmed 09/13/24] rosuvastatin 40 mg tablet 40 mg PO QHS 07/24/24 [History Confirmed 09/13/24] acetaminophen 500 mg tablet (Tylenol Extra Strength) 1,000 mg PO Q6HR PRN pain 08/29/24 [History Confirmed 09/13/24] aspirin 81 mg tablet 81 mg PO DAILY 08/29/24 [History Confirmed 09/13/24] oxycodone-acetaminophen 7.5 mg-325 mg tablet (Endocet) 1 tab PO Q6HR PRN pain 7 days #30 tabs 09/12/24 [Rx Confirmed 09/13/24] Exam Physical Exam Vital Signs: Temp Pulse Resp BP Pulse Ox O2 Del Method 98.2 F 88 20 138/63 95 Room Air 09/13/24 03:17 09/13/24 03:17 09/13/24 03:17 09/13/24 03:17 09/13/24 03:17 09/13/24 04:00 Narrative: Patient is comfortable conversive pleasant totally nontoxic and not in any discomfort at all. His heart rate is 80. Eyes are without scleral icterus. Heart is regular rate rhythm. Lungs are clear. Abdomen is soft is nontender nondistended besides a little mild tenderness around the incisions. Results - Gen. Surgery Intake and Output 24 hour I&O: Intake & Output 09/12/24 09/13/24 09/13/24 23:59 07:59 15:59 Intake Total 1000 / 1000 Output Total 400 / 400 Balance 600 / 600 Weight 94 kg Labs 09/13/24 04:42 09/13/24 04:42 Laboratory Results - last 72 hr 09/13/24 04:42: Corrected WBC 12.1 H, Uncorrected WBC Count 12.1 H, RBC 3.45 L, Hgb 11.0 L, Hct 31.3 L, MCV 90.8, MCH 31.8, MCHC 35.0, RDW 13.1, Plt Count 183, MPV 7.1, Neut % (Auto) 83.8, Lymph % (Auto) 11.1, Leake % (Auto) 4.8, Eos % (Auto) 0.0, Baso % (Auto) 0.3, Nucleat RBC Rel Count 0.0, Neut # (Auto) 10.1 H, Lymph # (Auto) 1.3, Leake # (Auto) 0.6, Eos # (Auto) 0.0, Baso # (Auto) 0.0, PHA Creatinine Clear 75.78, Sodium 136, Potassium 4.4, Chloride 105, Carbon Dioxide 24.3, Anion Gap 11.1, BUN 20, Creatinine 1.10, Est GFR (CKD-EPI) > 60.0, Tticpyu812 H, Calcium 8.0 L 09/13/24 00:15: Corrected WBC 12.2 H, Uncorrected WBC Count 12.2 H, RBC 3.86 L, Hgb 12.3 L, Hct 34.9 L, MCV 90.4, MCH 31.9, MCHC 35.3, RDW 13.4, Plt Count 231, MPV 7.1, Neut % (Auto) 87.8, Lymph % (Auto) 8.6, Leake % (Auto) 3.3, Eos % (Auto)0.0, Baso % (Auto) 0.3, Nucleat RBC Rel Count 0.0, Neut # (Auto) 10.7 H, Lymph #(Auto) 1.1, Leake # (Auto) 0.4, Eos # (Auto) 0.0, Baso # (Auto) 0.0, Monocyte Dist Width 17.10, PHA Creatinine Clear 63.38, Sodium 135 L, Potassium 4.7, Chloride 103, Carbon Dioxide 26.7, Anion Gap 10.0, BUN 21, Creatinine 1.30, Est GFR (CKD-EPI) > 60.0, Glucose 199 H, Calcium 8.6, Total Bilirubin 0.5, AST 28, ALT 34, Alkaline Phosphatase 62, Total Protein 6.3 L, Albumin 4.1, Globulin 2.2,Albumin/Globulin Ratio 1.9 A&P - General Surgery (1) Mesenteric hematoma: Plan Status post laparoscopic cholecystectomy, episode of syncope and blood loss secondary to this mesenteric hematoma. There was not a large amount of free blood in the abdomen and he is not having any symptoms currently. I would not recommend any washout on this as this is a contained space, opening up the mesentery will cause more bleeding and will not be able to find the vessel that bled. As this is contained and not a free hemoperitoneum risk of infection of that would be very minimal. He also was not having symptoms of pain secondary to hemoperitoneum. Would recommend observation here today, serial hemoglobins. If his hemoglobin is stable will advance diet. He is very comfortable with that. I did discuss with him my experience on Effient from doing emergency surgery on patients taking Effient is that it looks like there is good hemostasis and then bleeding happens after the fact postoperatively. It is possible that he still had some effect of his medication in his system causing him to be more prone to bleed. Documented By: Morgan Morrell DO 09/13/24904 Signed By: <Electronically signed by DO Morgan Morrell> 09/13/24909 [facility] Work Phone: 1(870) 996-558106-24-2025 [place] [address] General Surgery H&P Signed with Dung Patient: Deion Dumont MR#: [id number] : 1960 Acct:[id number] Age/Sex: 63 / M Adm Date: 5 Loc: Room: [address] [place] [address] Type: ADM IN Attending Dr: Adam Ashley MD Copies to: MD Morgan Wu,DO Stanley Muñoz MD~ ADDENDUM1 i checked on pt, Hgb stable, HR 75 BP 125/77. no pain at all. I d/w him and his and dtr. will h/l iv, increase diet, recheck labs tonight and tomorrow, and likely dc home tomorrow if cont stable. Addendum Documented By: DO Morgan Morrell 09/13/24 120 Addendum Signed By: 09/13/24 120 Date of Service: 09/13/2024 HPI History of Present Illness HPI: Mr. Dumont is a 63 year old male Who had a cholecystectomy yesterday. He is on Effient for his cardiac disease he believes he has been off of it for 5 days. He said that last night everything was going fine, then he had a wave of pain and felt like he was goingto pass out. He has no pain at all now besides a little soreness at theincisions if he coughs. He is not having any pain or discomfort. He is not having any nausea or vomiting. Is not having any fevers chills or sweats. He feels pretty normal. He is little bit hungry. He is not feeling lightheaded orshort of breath or like he is going to pass out. He is not having anychest pain. No breathing issues. Review of Systems Review of Systems All other systems reviewed & are negative unless noted below or in HPI [facility] Medical History (Updated 09/13/24 @ 09:07 by Morgan Morrell DO) Smoker Arthritis Back pain History of deviated nasal septum surgery BPH (benign prostatic hyperplasia) Hypercholesteremia Restless leg syndrome HTN (hypertension) Heart attack Surgical History (Updated 09/13/24 @ 00:01 by Bita Cannon RN) History of cholecystectomy History of cardiac catheterization x2 Hx of heart artery stent History of appendectomy History of tonsillectomy Family History Mother Cancer Father Heart disease Paternal Grandmother Heart disease Social History Smoking Status: Current every day smoker Tobacco Type: cigarettes Substance Use Type: None Substance Abuse Comment: etoh occasionally Social History Comments: grandchildren Meds Medications and Allergies Allergies No Known Allergies Allergy (Verified 09/13/24 00:00) Home Medications carvedilol 6.25 mg tablet (Coreg) 6.25 mg PO BID 01/24/23 [History Confirmed 09/13/24] gabapentin 600 mg tablet 600 mg PO .prn pain 01/24/23 [History Confirmed 09/13/24] pramipexole 0.5 mg tablet 0.5 mg PO DAILY restless leg 01/24/23 [History Confirmed 09/13/24] prasugrel HCl 10 mg tablet 10 mg PO DAILY blood thinner effient 01/24/23 [History Confirmed 09/13/24] Held on 09/12/24. Instructions: Resume on 09/15/24. restart on 09/15 tramadol 50 mg tablet 50 mg PO DAILY PRN pain 01/24/23 [History Confirmed 09/13/24] tizanidine 4 mg tablet 4 mg PO DAILY PRN pain 07/23/24 [History Confirmed 09/13/24] rosuvastatin 40 mg tablet 40 mg PO QHS 07/24/24 [History Confirmed 09/13/24] acetaminophen 500 mg tablet (Tylenol Extra Strength) 1,000 mg PO Q6HR PRN pain 08/29/24 [History Confirmed 09/13/24] aspirin 81 mg tablet 81 mg PO DAILY 08/29/24 [History Confirmed 09/13/24] oxycodone-acetaminophen 7.5 mg-325 mg tablet (Endocet) 1 tab PO Q6HR PRN pain 7 days #30 tabs 09/12/24 [Rx Confirmed 09/13/24] Exam Physical Exam Vital Signs: Temp Pulse Resp BP Pulse Ox O2 Del Method 98.2 F 88 20 138/63 95 Room Air 09/13/24 03:17 09/13/24 03:17 09/13/24 03:17 09/13/24 03:17 09/13/24 03:17 09/13/24 04:00 Narrative: Patient is comfortable conversive pleasant totally nontoxic and not in any discomfort at all. His heart rate is 80. Eyes are without scleral icterus. Heart is regular rate rhythm. Lungs are clear. Abdomen is soft is nontender nondistended besides a little mild tenderness around the incisions. Results - Gen. Surgery Intake and Output 24 hour I&O: Intake & Output 09/12/24 09/13/24 09/13/24 23:59 07:59 15:59 Intake Total 1000 / 1000 Output Total 400 / 400 Balance 600 / 600 Weight 94 kg Labs 09/13/24 04:42 09/13/24 04:42 Laboratory Results - last 72 hr 09/13/24 04:42: Corrected WBC 12.1 H, Uncorrected WBC Count 12.1 H, RBC 3.45 L, Hgb 11.0 L, Hct 31.3 L, MCV 90.8, MCH 31.8, MCHC 35.0, RDW 13.1, Plt Count 183, MPV 7.1, Neut % (Auto) 83.8, Lymph % (Auto) 11.1, Leake % (Auto) 4.8, Eos % (Auto) 0.0, Baso % (Auto) 0.3, Nucleat RBC Rel Count 0.0, Neut #(Auto) 10.1 H, Lymph # (Auto) 1.3, Leake # (Auto) 0.6, Eos # (Auto) 0.0, Baso # (Auto) 0.0, PHA Creatinine Clear 75.78, Sodium 136, Potassium 4.4, Chloride 105, Carbon Dioxide 24.3, Anion Gap 11.1, BUN 20, Creatinine 1.10, Est GFR (CKD-EPI) > 60.0, Siewbat403 H, Calcium 8.0 L 09/13/24 00:15: Corrected WBC 12.2 H, Uncorrected WBC Count 12.2 H, RBC 3.86 L, Hgb 12.3 L, Hct 34.9 L, MCV 90.4, MCH 31.9, MCHC 35.3, RDW 13.4, Plt Count 231, MPV 7.1, Neut % (Auto) 87.8, Lymph % (Auto) 8.6, Leake % (Auto) 3.3, Eos % (Auto)0.0, Baso % (Auto) 0.3, Nucleat RBC Rel Count 0.0, Neut # (Auto) 10.7 H, Lymph #(Auto) 1.1, Leake # (Auto) 0.4, Eos # (Auto) 0.0, Baso # (Auto) 0.0, Monocyte Dist Width 17.10, PHA Creatinine Clear 63.38, Sodium 135 L, Potassium 4.7, Chloride 103, Carbon Dioxide 26.7, Anion Gap 10.0, BUN 21, Creatinine 1.30, Est GFR (CKD-EPI) > 60.0, Glucose 199 H, Calcium8.6, Total Bilirubin 0.5, AST 28, ALT 34, Alkaline Phosphatase 62, Total Protein 6.3 L, Albumin 4.1, Globulin 2.2,Albumin/Globulin Ratio 1.9 A&P - General Surgery (1) Mesenteric hematoma: Plan Status post laparoscopic cholecystectomy, episode of syncope and blood loss secondary to this mesenteric hematoma. There was not a large amount of free blood in the abdomen and he is not having any symptoms currently. I would not recommend any washout on this as this is a contained space, opening up the mesentery will cause more bleeding and will not be able to find the vessel that bled. As this is contained and not a free hemoperitoneum risk of infection of that would be very minimal. He also was not having symptoms of pain secondary to hemoperitoneum. Would recommend observation here today,serial hemoglobins. If his hemoglobin is stable will advance diet. He is very comfortable with that. I did discuss with him my experience on Effient from doing emergency surgery on patients taking Effient is that it looks like there is good hemostasis and then bleeding happens after the fact postoperatively. It is possible that he still had some effect of his medication in his system causing him to be more prone to bleed. Documented By: Morgan Morrell DO 09/13/24904 Signed By: 09/13/24909 [facility]06-24-2025 Radiology Diagnostic study note [facility] [address] [place] [address] CT Scan Report Signed Patient: Deion Dumont MR#: [id number] : 1960 Acct:[id number] Age/Sex: 63 / M ADM Date: 5 Loc: Room: [address] [place] [address] Type: ADM IN Attending Dr: Adam Ashley MD Copies to: MD Colby Wu DO~ Ordering Provider: Colby Malagon DO Date of Service: 09/13/24 CT/CT abdomen pelvis w con: abd pain, syncope post aron CT ABDOMEN AND PELVIS WITH CONTRAST COMPARISON: 10/05/2022 CLINICAL DATA: Chest and right shoulder pain. Cholecystectomy today. Spiral images were obtained through the abdomen and pelvis following 90 mL Isovue-300. This CT examwas performed using one or more following dose reduction techniques: Automated exposure control, adjustment of the mA and/or kVaccording to patient size, or use of iterative reconstruction technique. Limited cuts through the lung bases show a calcified right lower lobe nodule on the first image. There is developing bibasilar atelectasis. There is fatty infiltration of the liver. Suspected left hepatic cysts are again seen. There is interval cholecystectomy. There is mild intra and extrahepatic biliary dilatation. No common duct stones are noted. There are nosignificant fluid collections at the gallbladder fossa however there is a small amount of perihepatic hepatic fluid and minimal free air. In addition, there brandon large hematomain the subhepatic region measuring approximately 15 cm in greatest dimension. There is surrounding fibrofatty stranding and a small amount of blood that extends down the paracolic gutter to the rightpelvis. Thefluid is slightly hyperdense and may be blood. The spleen, pancreas and adrenalglands show no acute findings. There are symmetric renal nephrograms, without hydronephrosis. There is a small amount of right perinephric fluid. Atherosclerotic plaque is present at the aorta, iliac and some of the visceral arteries. No enlarged lymph nodes are identified. There is a small amount of additional free air as well as air trocar at sites within the abdominal wall. The small bowel loops are not distended. There is stool within the colon, greater on the right. There are left-sided colonic diverticula. Slight levoscoliotic curvature and degenerative changes are present at the spine. Images through the pelvis show normal caliber small bowel loops. The appendix is not definitely seen. The distal colon is underdistended. There are additional descending and sigmoid diverticula, without associated active inflammation. The prostate is top normal in size and contains a few calcifications. The urinary bladder is unremarkable. There is dependent low density free pelvic fluid. CT/CT abdomen pelvis w con IMPRESSION: BIBASILAR ATELECTASIS. INTERVAL CHOLECYSTECTOMY WITH MILD BILIARY PROMINENCE HOWEVER NO CHOLEDOCHOLITHIASIS. RIGHT UPPER QUADRANT MESENTERIC HEMATOMA WITH SURROUNDING INFLAMMATION AND MILD FREE FLUID, SOME OFWHICH COULD BE HEMOPERITONEUM. FATTY LIVER AND LEFT HEPATIC CYSTS. DIVERTICULOSIS. Impression dictated by: Martha Barrientos M.D. 09/13/2024 8:19 AM Dictation Location: [place] [address] Transcribed By: [facility] 09/13/24818 Dictated By: Martha Barrientos MD 09/13/24 0806 Signed By: 09/13/24818 [facility] Work Phone: 1(504) 439-790405-20-2025 History of Present illness Narrative* Morgan Morrell, - 08/09/2024 3:30 PM EDT Deion Dumont 1960 Deion Dumont is a 63 y.o. male presents with chief complaint of 2nd week post hosp f/u non surgical (GB) HPI: HPI patient has been careful about his diet, he has been eating very bland and low-fat foods. He has not having pain attacks of any significance, maybe occasionally he notices a little discomfort. Hesaw his manifest clerk who told him that he could come off of the Effient for surgery, he did requesta stand a baby aspirin. He was cleared to have the operation. Patient is motivated to proceed with that. He has been dealing with his gallbladder issues for an extended time. SUBJECTIVE: MEDICATIONS: ALLERGIES Current Outpatient Medications Medication Instructions carvedilol (Coreg) 6.25 MG tablet gabapentin (Neurontin) 600 MG tablet pramipexole (Mirapex) 0.5 MG tablet prasugrel (EFFIENT) 10 mg, Every morning rosuvastatin (Crestor) 40 MG tablet tiZANidine (Zanaflex) 4 MG tablet traMADol (Ultram) 50 MG tablet TAKE 1 TO 2 TABLETS BY MOUTH TWICE DAILY NEEDED FOR PAIN FOR 7 DAYS No Known Allergies PAST MEDICAL HISTORY: SOCIAL HISTORY SURGICAL HISTORY: Past Medical History: Diagnosis Date ED (erectile dysfunction) Heart attack (CMS/HCC) High blood pressure (CMS/HCC) HLD (hyperlipidemia) (CMS/HCC) Restless leg syndrome Social History Tobacco Use Smoking status: Every Day Types: Cigarettes Smokeless tobacco: Never Substance Use Topics Alcohol use: Defer Drug use: Defer Past Surgical History: Procedure Laterality Date APPENDECTOMY 1971 NASAL SEPTUM SURGERY TONSILLECTOMY 1965 REVIEW OF SYMPTOMS: Review of Systems Constitutional: Negative for appetite change and fatigue. HENT: Negative for trouble swallowing. Respiratory: Negative for cough and shortness of breath. Cardiovascular: Negative for chest pain. Gastrointestinal: Positive for abdominal pain. Genitourinary: Negative for hematuria. Musculoskeletal: Negative for arthralgias. Neurological: Negative for seizures. Hematological: Negative for adenopathy. OBJECTIVE: Visit Vitals BP 126/70 Ht 5' 9 Wt 204 lb BMI 30.13 kg/m Smoking Status Every Day BSA 2.12 m Physical Exam Constitutional: Appearance: Normal appearance. He is not ill-appearing. HENT: Head: Atraumatic. Eyes: General: No scleral icterus. Cardiovascular: Rate and Rhythm: Regular rhythm. Heart sounds: Normal heart sounds. Pulmonary: Breath sounds: No wheezing. Abdominal: General: There is no distension. Tenderness: There is no abdominal tenderness. Musculoskeletal: Right lower leg: No edema. Left lower leg: No edema. Neurological: Mental Status: He is alert. ASSESSMENT AND PLAN: Assessment/Plan Diagnoses and all orders for this visit: Calculus of gallbladder with acute on chronic cholecystitis without obstruction Calculous cholecystitis episodes over the years, patient was briefly hospitalized with quick resolution of his symptoms. As he was on Effient decision was made to get cardiac clearance and pushes surgery out until he is off of that strong Anti-platelet agent that would have high-risk for bleeding co mplications postoperatively. All things being considered he very much wants to proceed with surgery.Plan is for laparoscopic cholecystectomy, possible open. We discussed the surgery, the risks and the benefits and potential complications including but not limited to bleeding, infection, damage to intra-abdominal structures, possible major bile duct injury that could require complete biliary reconstruction at a tertiary care center, possible biloma. We discussed possible post cholecystectomy syndrome or nonresolution of symptoms. We discussed activity restrictions postoperatively. They would like to proceed. He will be off of his Effient for 5 days. He will continue with his baby aspirin. We discussed time off work, if he could go back to light duty perhaps he could be off for only 2 weeks documented in this encounterTexas County Memorial [id number] NoteCardiovascular Medicine [facility] SUBJECTIVE Chief Complaint Patient presents with Coronary Artery Disease Pre-op Exam Deion Dumont is a 63 y.o. male here for follow-up. HPI PMHx: CAD s/p stent to RCA x2, hx OR 2012, HTN He states he feels well from a cardiac standpoint. He can walk 2 blocks or a flight of stairs without experiencing chest pain or SOB. He has been have recurrent issues with his gallbladder. He is planning to have surgery to remove it. Denies c/o CP, dyspnea, orthopnea, PND, LE edema, dizziness/LH, palpitations, syncope. 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 Patient Active Problem List Diagnosis Cardiovascular stress test abnormal Coronary atherosclerosis Dyspnea Electrocardiogram abnormal Headache Lumbar herniated disc Meralgia paresthetica Midline low back pain with sciatica Opioid withdrawal (CMS/HCC) Radiculopathy, lumbar region Restless leg syndrome Smoker Stented coronary artery Mixed hyperlipidemia Past Medical History: Diagnosis Date CAD (coronary artery disease) Hypertension Family History Problem Relation Name Age of Onset Other (Malig neoplastic disease) Mother Heart disease Father Social History Tobacco Use Smoking status: Every Day Current packs/day: 1.00 Types: Cigarettes Smokeless tobacco: Never Substance Use Topics Drug use: Never No Known Allergies OBJECTIVE Visit Vitals BP 110/72 (BP Location: Right arm, Patient Position: Sitting) Pulse 85 Ht 1.753 m (5' 9 ) Wt 94.3 kg (208 lb) SpO2 96% BMI 30.72 kg/m??? Smoking Status Every Day BSA 2.14 m??? Medications: Current Outpatient Medications: carvedilol (Coreg) 6.25 mg tablet, Take 1 tablet (6.25 mg) by mouth with breakfast and with evening meal., Disp: 180 tablet, Rfl: 3 gabapentin (Neurontin) 600 mg tablet, TAKE 1 TABLET BY MOUTH TWICE DAILY NEEDED FOR NERVE PAIN, Disp: , Rfl: pramipexole (Mirapex) 0.5 mg tablet, TAKE 1 TABLET BY MOUTH ONCE DAILY AT BEDTIME NEEDED FOR RESTLESS LEGS, Disp: , Rfl: prasugrel (Effient) 10 mg tablet, Take 1 tablet (10 mg) by mouth in the morning., Disp: 90 tablet, Rfl: 3 rosuvastatin (Crestor) 40 mg tablet, Take 1 tablet (40 mg) by mouth at bedtime., Disp: 90 tablet, Rfl: 3 tiZANidine (Zanaflex) 4 mg tablet, Take 4 mg by mouth every 6 (six) hours if needed., Disp: , Rfl: traMADol (Ultram) 50 mg tablet, TAKE 1 TO 2 TABLETS BY MOUTH TWICE DAILY FOR PAIN FOR 5 DAYS. NO DRIVING., Disp: , Rfl: albuterol 90 mcg/actuation inhaler, INHALE 2 PUFFS BY MOUTH 4 TIMES DAILY NEEDED FOR SHORTNESS OF BREATH FOR WHEEZING, Disp: , Rfl: aspirin 81 mg EC tablet, Take 81 mg by mouth in the morning., Disp: , Rfl: nicotine polacrilex (Nicorette) 2 mg gum, Chew 1 each (2 mg) if needed for smoking cessation. Chew at least 1 piece of gum every 1-2 hours while awake and whenever urge to smoke. May use up to 24 pieces a day for the first 6 weeks. Gradually reduce the amount with plan to stop after 3 months., Disp: 100 each, Rfl: 3 Physical Exam Constitutional: Appearance: Normal appearance. He is normal weight. HENT: Head: Normocephalic and atraumatic. Right Ear: External ear normal. Left Ear: External ear normal. Eyes: Extraocular Movements: Extraocular movements intact. Pupils: Pupils are equal, round, and reactive to light. Neck: Vascular: No carotid bruit. Cardiovascular: Rate and Rhythm: Normal rate and regular rhythm. Pulses: Normal pulses. Heart sounds: Normal heart sounds. Pulmonary: Effort: Pulmonary effort is normal. Breath sounds: Normal breath sounds. Abdominal: General: Bowel sounds are normal. Palpations: Abdomen is soft. Musculoskeletal: General: Normal range of motion. Cervical back: Neck supple. Right lower leg: No edema. Left lower leg: No edema. Skin: General: Skin is warm and dry. Neurological: General: No focal deficit present. Mental Status: He is alert and oriented to person, place, and time. Psychiatric: Mood and Affect: Mood normal. Behavior: Behavior normal. Thought Content: Thought content normal. Judgment: Judgment normal. Labs: No results found for: EXTCMP , BMPR1A , CBCDIF , BNP , LASAP , RED No visits with results within 6 Month(s) from this visit. Latest known visit with results is: [facility] Encounter on 07/10/2016 Component Date Value Ventricular Rate 07/10/2016 85 Atrial Rate 07/10/2016 85 [place] Interval 07/10/2016 188 QRS DURATION 07/10/2016 96 QT Interval 07/10/2016 372 QTC CALCULATION(BEZET) 07/10/2016 442 P [place] 07/10/2016 56 R-[place] 07/10/2016 -59 T Wave [place] 07/10/2016 49 Diagnosis 07/10/2016 Value:Normal sinus rhythm Left axis deviation Possible Inferior infarct , age undetermined Abnormal ECG No previous ECGs available Confirmed by Denton RON, L.S. (2) on 07/11/2016 11:00:27 AM No results found for: CHOL , TRIG (more content not included)...[facility]05-07-2025 NotePatient is here today for surgery clearance for a Cholecystectomy. Patient states he feels good. Patient states he hasn't had any cardiac problems. Patient denies when he get gall bladder attacks he has chest pain just below the left nipple, center of chest just below breast bone, lower right abdomen. Patient denies leg swelling, SOB, palpitations, or dizziness. Patient states he has fatigue, he is not getting much sleep due to the gall bladder attacks Review of Systems Constitutional: Positive for malaise/fatigue.[facility] 07-24-2024 Consult note Author Morgan Morrell [facility] Note Date/Time July 24, 2024 9:10am [facility] [address] [place] [address] General Surgery Consult Note Signed Patient: Deion Dumont MR#: [id number] : 1960 Acct:[id number] Age/Sex: 63 / M Adm Date: 5 Loc: Room: [address] [place] [address] Type: ADM INOo Attending Dr: Dm Torres DO Copies to: Dm Torres DO NO FAMILY PHYSICIAN Morgan Morrell DO~ History of Present Illness Date of consult: 07/24/2024 Requesting/Attending Provider: Dm Torres DO History of present illness: Patient says that intermittently he has had gallbladder issues, he was admitted to the hospital in 2022 where he was given the option for surgery versus antibiotic treatment of the gallbladder and he chose antibiotics at that time. Intermittently he has had right upper quadrant or upper abdominal pain attacks after eating. Over the last several months it has been 2-3 times per week. He had a more significant attack last night more left upper quadrant than right upper quadrant but he said basically his entire abdomen. It was stabbing. It was very significant. He had eaten potato salad that had mayonnaise on it and Posta salad that had a lot of oil and chicken sandwich. He also had a bloody Bibi in the morning. He has no pain at all now. Absolutely none. No pain whatsoever. He is hungry. Is not having any nausea or vomiting or is not having any fevers chills or sweats. Patient had a myocardial infarction in 2012, he has been treated by his manifest clerk since that time. 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 He takes Effient Review of Systems Review of Systems All other systems reviewed & are negative unless noted below or in HPI [facility] Medical History Restless leg syndrome HTN (hypertension) Heart attack Surgical History Hx of heart artery stent History of appendectomy History of tonsillectomy Social History Smoking Status: Current every day smoker Tobacco Type: cigarettes Substance Use Type: None Substance Abuse Comment: etoh occasionally Allergies & Medications Medications and Allergies Allergies No Known Allergies Allergy (Verified 07/23/24 20:58) Home Medications Rosuvastatin 40 mg PO .daily hs 01/24/23 [History Confirmed 07/24/24] carvedilol 6.25 mg tablet (Coreg) 6.25 mg PO DAILY 01/24/23 [History Confirmed 07/24/24] gabapentin 600 mg tablet 600 mg PO .prn pain 01/24/23 [History Confirmed 07/24/24] pramipexole 0.5 mg tablet 0.5 mg PO DAILY 01/24/23 [History Confirmed 07/24/24] prasugrel HCl 10 mg tablet 10 mg PO DAILY 01/24/23 [History Confirmed 07/24/24] tramadol 50 mg tablet 50 mg PO .prn 01/24/23 [History Confirmed 07/24/24] tizanidine 4 mg tablet 4 mg PO .prn pain 07/23/24 [History Confirmed 07/24/24] Active Medications Acetaminophen (Acetaminophen 325 Mg Tablet) 650 mg PO Q6HR PRN PRN Reason: Pain Scale 1 - 3 or fever Stop: 07/24/25 00:11 Carvedilol (Carvedilol 6.25 Mg Tablet) 6.25 mg PO DAILY DINAH Stop: 07/24/25 08:59 Gabapentin (Gabapentin 600 Mg Tablet) 600 mg PO BID PRN PRN Reason: NERVE PAIN Stop: 07/24/25 00:14 Heparin Sodium (Porcine) (Heparin 5,000 Unit/Ml Vial) 5,000 unit SUBCUT Q8HR DINAH Stop: 07/24/25 05:59 Last Admin: 07/24/24 06:04 Dose: 5,000 unit Hydromorphone HCl (Hydromorphone 0.5 Mg/0.5 Ml Syringe) 0.5 mg IV-PUSH Q4H PRN PRN Reason: Pain Scale 8 - 10 Lactated Ringer's (Lactated Ringers) 1,000 mls @ 75 mls/hr IV .[id number] DINAH Stop: 07/24/24 14:49 Last Admin: 07/24/24 01:40 Dose: 75 mls/hr Non-Formulary Medication (Rosuvastatin) 40 mg PO .daily hs DINAH Stop: 07/24/25 00:14 Pramipexole Dihydrochloride (Pramipexole 0.5 Mg Tablet) 0.5 mg PO DAILY DINAH Stop: 07/24/25 08:59 Prasugrel (Prasugrel 10 Mg Tablet) 10 mg PO DAILY DIANH Stop: 07/24/25 08:59 Prochlorperazine Edisylate (Prochlorperazine Edisylate 10 Mg/2 Ml Vial) 5 mg IV- PUSH Q4H PRN PRN Reason: Nausea And Vomiting Stop: 07/24/25 00:11 Sodium Chloride (Sodium Chloride 0.9 % 10 Ml Syringe) 0 ml IV-PUSH PRN PRN PRN Reason: Flush Stop: 07/23/25 20:57 Last Admin: 07/23/24 22:49 Dose: 10 ml Tizanidine HCl (Tizanidine 4 Mg Tablet) 4 mg PO BID PRN PRN Reason: MUSCLE PAIN Stop: 07/24/25 00:14 Tramadol HCl (Tramadol 50 Mg Tablet) 50 mg PO BID PRN PRN Reason: Pain Stop: 01/20/25 00:14 Tramadol HCl (Tramadol 50 Mg Tablet) 100 mg PO BID PRN PRN Reason: Pain Stop: 01/20/25 01:34 Exam Physical Exam Vital Signs: Temp Pulse Resp BP Pulse Ox O2 Del Method 97.9 F 71 20 147/78 H 96 Room Air 07/24/24 07:31 07/24/24 07:31 07/24/24 07:31 07/24/24 07:31 07/24/24 07:07/24/24 07:31 Narrative: Patient is comfortable conversive pleasant. He is in no distress whatsoever. Head is atraumatic normocephalic. Eyes are without any scleral icterus. Neck no anterior posterior cervical lymphadenopathy. Heart is regular rhythm. Lungsclear. Abdomen is soft completely nontender nondistended. No guarding rebound or rigidity. No tenderness with vigorous exam. Extremities no edema. Results - Gen. Surgery Intake and Output 24 hour I&O: Intake & Output 07/23/24 07/24/24 07/24/24 23:59 07:59 15:59 Intake Total 1000 / 1000 500 / 500 Balance 1000 / 1000 500 / 500 Weight 95 kg 94.1 kg Labs 07/24/24 06:21 07/24/24 06:21 Laboratory Results - last 72 hr 07/24/24 06:21: Corrected WBC 5.3, Uncorrected WBC Count 5.3, RBC 4.20, Hgb 13.3, Hct 37.3 L, MCV 88.9, MCH 31.6, MCHC 35.5, RDW 13.4, Plt Count 198, MPV 7.2, Neut % (Auto) 48.8, Lymph % (Auto) 38.1, Leake % (Auto) 9.4, Eos % (Auto) 3.1, Baso % (Auto) 0.6, Nucleat RBC Rel Count 0.1, Neut # (Auto) 2.6, Lymph # (Auto) 2.0, Leake # (Auto) 0.5, Eos # (Auto) 0.2, Baso # (Auto) 0.0, Monocyte Dist Width 17.48, PHA Creatinine Clear 79.42, Sodium 140, Potassium 4.0, Chloride 109 H, Carbon Dioxide 27.1, Anion Gap 7.9, BUN 15, Creatinine 1.05, EstGFR (CKD-EPI) > 60.0, Glucose 86, Calcium 8.3 L, Total Bilirubin 0.5, AST 12 L, ALT 12, Alkaline Phosphatase 58, Troponin I High Sens 4, Total Protein 5.9 L, Albumin 3.7, Globulin 2.2, Albumin/Globulin Ratio 1.7, Triglycerides 131, Cholesterol 83 L, LDL Cholesterol, Calc 33, VLDL Cholesterol 26, HDL [id number], Cholesterol/HDL Ratio 3.5 07/23/24 22:27: APTT Cancelled, PHA Creatinine Clear 65.96, Sodium 141, Potassium 4.1, Chloride 106, Carbon Dioxide 30.1, Anion Gap 9.0, BUN 17, Creatinine 1.27, Est GFR (CKD-EPI) > 60.0, Glucose 107 H, Calcium 9.3, Total Bilirubin 0.4, AST 13, ALT 15, Alkaline Phosphatase 76, Total Creatine Kinase 116, Troponin I High Sens 5, B-Natriuretic Peptide 16.0, Total Protein 6.9, Albumin 4.3, Globulin 2.6, Albumin/Globulin Ratio 1.7, Lipase 33.0 07/23/24 22:27: Corrected WBC 6.4, Uncorrected WBC Count 6.4, RBC 4.66, Hgb 14.6, Hct 41.1, MCV 88.2, MCH 31.3, MCHC 35.4, RDW 13.2, Plt Count 222, MPV 7.0,Neut % (Auto) 48.6, Lymph % (Auto) 37.7, Leake % (Auto) 10.0, Eos % (Auto) 3.0, Baso % (Auto) 0.7, Nucleat RBC Rel Count 0.1, Neut # (Auto) 3.1, Lymph # (Auto) 2.4, Leake # (Auto) 0.6, Eos # (Auto) 0.2, Baso # (Auto) 0.0, Monocyte Dist Width16.64, PT 11.5, INR 1.0, APTT 32.1 A&P - General Surgery (1) Gallbladder disease: (2) Abdominal pain: (3) Coronary artery disease: Plan Patient has episodes of biliary colic secondary to gallstones, stones were notedon ultrasound without any gallbladder wall thickening or pericholecystic fluid. All of his symptoms are totally resolved. He has no elevated white blood cell count nor fevers. Liver function tests are all normal. No emergency to intervene on gallbladder. Additionally he is on Effient which is a very strong antiplatelet agent with a significant risk of intraoperative or postoperative bleeding. He would need to be off of that for 5 days before he could have an operation. Patient is interested in cholecystectomy. That should be done as anoutpatient. He can have clear liquid diet and advance as tolerated. I could see him again in the office and he would need cardiac clearance before surgery. As his symptoms are resolved I defer to hospitalist service on timing of discharge. Documented By: Morgan Morrell DO 07/24/24 0905 Signed By: <Electronically signed by DO Morgan Morrell> 07/24/24 0990 [facility] Work Phone: 1(501) 631-775805-04-2025 Radiology Diagnostic study [facility] [address] [place] [address] Ultrasound Report Signed Patient: Deion Dumont MR#: [id number] : 1960 Acct:[id number] Age/Sex: 63 / M ADM Date: 5 Loc: 3T Room: [address] [place] [address] Type: ADM INOo Attending Dr: Dm Torres DO Ordering Provider: Kristen Bailey Jr, MD Date of Service: 07/23/24 US/US gall bladder: RUQ pain hx gallstones Copies to: DO Kristen Kothari Jr, MD~ LIMITED ABDOMINAL ULTRASOUND: CLINICAL HISTORY: Left-sided chest pain, right upper quadrant pain, history gallstones COMPARISON: None TECHNIQUE: Grayscale and color Doppler images of the right upper quadrant organswere obtained. FINDINGS: Pancreas: Mostly obscured Liver: 15.2 cm in length. Fatty infiltration. No definite focal liver lesions. Gallbladder: Echogenic shadowing debris/echogenic foci. Likely gallstones and sludge. Negative sonographic Jc's sign. Unremarkable wall thickness 2.6 mm. CBD: 1.1 cm, dilated US/US gall bladder IMPRESSION: DILATATION OF THE COMMON BILE DUCT. CORRELATION WITH LFTS RECOMMENDED. IF WARRANTED, CONSIDER MRCP. CHOLELITHIASIS/SLUDGE FATTY LIVER. Impression dictated by: William Eric M.D. 07/24/2024 10:14 AM Dictation Location: [place] [address] Tech: Renetta Wills Transcribed By: KEKE 07/24/24 1014 Dictated By: William Eric MD 07/24/24 1011 Signed By: 07/24/24 1014 [facility] Work Phone: [phone] 602-543805-04-[address] [address] General Surgery Consult Note Signed Patient: Deion Dumont MR#: [id number] : 1960 Acct:[id number] Age/Sex: 63 / M Adm Date: 5 Loc: Room: [address] [place] [address] Type: ADM INOo Attending Dr: Dm Torres DO Copies to: Dm Torres DO NO FAMILY PHYSICIAN Morgan Morrell DO~ History of Present Illness Date of consult: 07/24/2024 Requesting/Attending Provider: Dm Torres DO History of present illness: Patient says that intermittently he has had gallbladder issues, he was admitted to the hospital in 2022 where he was given the option for surgery versus antibiotic treatment of the gallbladder and hechose antibiotics at that time. Intermittently he has had right upper quadrant or upper abdominal pain attacks after eating. Over the last several months it has been 2-3 times per week. He had a moresignificant attack last night more left upper quadrant than right upper quadrant but he said basically his entire abdomen. It was stabbing. It was very significant. He had eaten potato salad that hadmayonnaise on it and Posta salad that had a lot of oil and chicken sandwich. He also had a bloody Bibi in the morning. He has no pain at all now. Absolutely none. No pain whatsoever. He is hungry. Isnot having any nausea or vomiting or is not having any fevers chills or sweats. Patient had a myocardial infarction in 2012, he has been treated by his manifest clerk since that time. 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 He takes Effient Review of Systems Review of Systems All other systems reviewed & are negative unless noted below or in HPI [facility] Medical History Restless leg syndrome HTN (hypertension) Heart attack Surgical History Hx of heart artery stent History of appendectomy History of tonsillectomy Social History Smoking Status: Current every day smoker Tobacco Type: cigarettes Substance Use Type: None Substance Abuse Comment: etoh occasionally Allergies & Medications Medications and Allergies Allergies No Known Allergies Allergy (Verified 07/23/24 20:58) Home Medications Rosuvastatin 40 mg PO .daily hs 01/24/23 [History Confirmed 07/24/24] carvedilol 6.25 mg tablet (Coreg) 6.25 mg PO DAILY 01/24/23 [History Confirmed 07/24/24] gabapentin 600 mg tablet 600 mg PO .prn pain 01/24/23 [History Confirmed 07/24/24] pramipexole 0.5 mg tablet 0.5 mg PO DAILY 01/24/23 [History Confirmed 07/24/24] prasugrel HCl 10 mg tablet 10 mg PO DAILY 01/24/23 [History Confirmed 07/24/24] tramadol 50 mg tablet 50 mg PO .prn 01/24/23 [History Confirmed 07/24/24] tizanidine 4 mg tablet 4 mg PO .prn pain 07/23/24 [History Confirmed 07/24/24] Active Medications Acetaminophen (Acetaminophen 325 Mg Tablet) 650 mg PO Q6HR PRN PRN Reason: Pain Scale 1 - 3 or fever Stop: 07/24/25 00:11 Carvedilol (Carvedilol 6.25 Mg Tablet) 6.25 mg PO DAILY DINAH Stop: 07/24/25 08:59 Gabapentin (Gabapentin 600 Mg Tablet) 600 mg PO BID PRN PRN Reason: NERVE PAIN Stop: 07/24/25 00:14 Heparin Sodium (Porcine) (Heparin 5,000 Unit/Ml Vial) 5,000 unit SUBCUT Q8HR DINAH Stop: 07/24/25 05:59 Last Admin: 07/24/24 06:04 Dose: 5,000 unit Hydromorphone HCl (Hydromorphone 0.5 Mg/0.5 Ml Syringe) 0.5 mg IV-PUSH Q4H PRN PRN Reason: Pain Scale 8 - 10 Lactated Ringer's (Lactated Ringers) 1,000 mls @ 75 mls/hr IV .[id number] [facility] Stop: 07/24/24 14:49 Last Admin: 07/24/24 01:40 Dose: 75 mls/hr Non-Formulary Medication (Rosuvastatin) 40 mg PO .daily hs [facility] Stop: 07/24/25 00:14 Pramipexole Dihydrochloride (Pramipexole 0.5 Mg Tablet) 0.5 mg PO DAILY [facility] Stop: 07/24/25 08:59 Prasugrel (Prasugrel 10 Mg Tablet) 10 mg PO DAILY DINAH Stop: 07/24/25 08:59 Prochlorperazine Edisylate (Prochlorperazine Edisylate 10 Mg/2 Ml Vial) 5 mg IV- PUSH Q4H PRN PRN Reason: Nausea And Vomiting Stop: 07/24/25 00:11 Sodium Chloride (Sodium Chloride 0.9 % 10 Ml Syringe) 0 ml IV-PUSH PRN PRN PRN Reason: Flush Stop: 07/23/25 20:57 Last Admin: 07/23/24 22:49 Dose: 10 ml Tizanidine HCl (Tizanidine 4 Mg Tablet) 4 mg PO BID PRN PRN Reason: MUSCLE PAIN Stop: 07/24/25 00:14 Tramadol HCl (Tramadol 50 Mg Tablet) 50 mg PO BID PRN PRN Reason: Pain Stop: 01/20/25 00:14 Tramadol HCl (Tramadol 50 Mg Tablet) 100 mg PO BID PRN PRN Reason: Pain Stop: 01/20/25 01:34 Exam Physical Exam Vital Signs: Temp Pulse Resp BP Pulse Ox O2 Del Method 97.9 F 71 20 147/78 H 96 Room Air 07/24/24 07:31 07/24/24 07:31 07/24/24 07:31 07/24/24 07:31 07/24/24 07:31 07/24/24 07:31 Narrative: Patient is comfortable conversive pleasant. He is in no distress whatsoever. Head is atraumatic normocephalic. Eyes are without any scleral icterus. Neck no anterior posterior cervical lymphadenopathy. Heart is regular rhythm. Lungsclear. Abdomen is soft completely nontender nondistended. No guarding rebound or rigidity. No tenderness with vigorous exam. Extremities no edema. Results - Gen. Surgery Intake and Output 24 hour I&O: Intake & Output 07/23/24 07/24/24 07/24/24 23:59 07:59 15:59 Intake Total 1000 / 1000 500 / 500 Balance 1000 / 1000 500 / 500 Weight 95 kg 94.1 kg Labs 07/24/24 06:21 07/24/24 06:21 Laboratory Results - last 72 hr 07/24/24 06:21: Corrected WBC 5.3, Uncorrected WBC Count 5.3, RBC 4.20, Hgb 13.3, Hct 37.3 L, MCV 88.9, MCH 31.6, MCHC 35.5, RDW 13.4, Plt Count 198, MPV 7.2, Neut % (Auto) 48.8, Lymph % (Auto) 38.1,Leake % (Auto) 9.4, Eos % (Auto) 3.1, Baso % (Auto) 0.6, Nucleat RBC Rel Count 0.1, Neut # (Auto) 2.6, Lymph # (Auto) 2.0, Leake # (Auto) 0.5, Eos # (Auto) 0.2, Baso # (Auto) 0.0, Monocyte Dist Width 17.48, PHA Creatinine Clear 79.42, Sodium 140, Potassium 4.0, Chloride 109 H, Carbon Dioxide 27.1, Anion Gap 7.9, BUN 15, Creatinine 1.05, EstGFR (CKD-EPI) > 60.0, Glucose 86, Calcium 8.3 L, Total Bilirubin 0.5, AST 12 L, ALT 12, Alkaline Phosphatase 58, Troponin I High Sens 4, Total Protein 5.9 L, Albumin 3.7, Globulin 2.2, Albumin/Globulin Ratio 1.7, Triglycerides 131, Cholesterol 83 L, LDL Cholesterol, Calc 33, VLDL Cholesterol 26, HDL Inxrljaedco80, Cholesterol/HDL Ratio 3.5 07/23/24 22:27: APTT Cancelled, PHA Creatinine Clear 65.96, Sodium 141, Potassium 4.1, Chloride 106, Carbon Dioxide 30.1, Anion Gap 9.0, BUN 17, Creatinine 1.27, Est GFR (CKD-EPI) > 60.0, Glucose 107 H, Calcium 9.3, Total Bilirubin 0.4, AST 13, ALT 15, Alkaline Phosphatase 76, Total Creatine Kinase 116, Troponin I High Sens 5, B-Natriuretic Peptide 16.0, Total Protein 6.9, Albumin 4.3, Globulin 2.6, Albumin/Globulin Ratio 1.7, Lipase 33.0 07/23/24 22:27: Corrected WBC 6.4, Uncorrected WBC Count 6.4, RBC 4.66, Hgb 14.6, Hct 41.1, MCV 88.2, MCH 31.3, MCHC 35.4, RDW 13.2, Plt Count 222, MPV 7.0,Neut % (Auto) 48.6, Lymph % (Auto) 37.7, Leake % (Auto) 10.0, Eos % (Auto) 3.0, Baso % (Auto) 0.7, Nucleat RBC Rel Count 0.1, Neut # (Auto) 3.1,Lymph # (Auto) 2.4, Leake # (Auto) 0.6, Eos # (Auto) 0.2, Baso # (Auto) 0.0, Monocyte Dist Width16.64, PT 11.5, INR 1.0, APTT 32.1 A&P - General Surgery (1) Gallbladder disease: (2) Abdominal pain: (3) Coronary artery disease: Plan Patient has episodes of biliary colic secondary to gallstones, stones were notedon ultrasound without any gallbladder wall thickening or pericholecystic fluid. All of his symptoms are totally resolved. He has no elevated white blood cell count nor fevers. Liver function tests are all normal. No emergency to intervene on gallbladder. Additionally he is on Effient which is a very strong antiplatelet agent with a significant risk of intraoperative or postoperative bleeding. He would need to be offof that for 5 days before he could have an operation. Patient is interested in cholecystectomy. That should be done as anoutpatient. He can have clear liquid diet and advance as tolerated. I could see him again in the office and he would need cardiac clearance before surgery. As his symptoms are resolved I defer to hospitalist service on timing of discharge. Documented By: Morgan Morrell DO 07/24/2405 Signed By: 07/24/24 0910 [facility]05-04-2025 History and physical note Author Higinio Minaya [facility] Note Date/Time July 24, 2024 1:28am [facility] [address] [place] [address] Hospitalist H&P Signed Patient: Deion Dumont MR#: [id number] : 1960 Acct:[id number] Age/Sex: 63 / M Adm Date: 5 Loc: 3T Room: [address] [place] [address] Type: ADM INOo Attending Dr: Higinio Minaya MD Copies to: NO FAMILY PHYSICIAN Higinio Minaya MD~ HPI DATE OF EXAMINATION: 07/24/24 CHIEF COMPLAINT: abd pain HISTORY OF PRESENT ILLNESS: Patient is a 63-year-old male with medical history as listed below presented to ER due to left sided chest pain however he tells me its right sided abdominal pain. Patient reports that he has been having this right upper quadrant pain over the past week and has been dealing with it with tylenol and tramadol. He does report onset of symptoms 2-3 hours after meals, intermittent in nature, constant in course then relieved in few hours after taking pain meds. mostly hissymptoms occur at night time. denies any associated symptoms of fever, nausea, vomiting, chills, diarrhea. Pain mostly radiating to his epigastric area. He didhave signs of cholecystitis in the past in 2022 per chart and elected to be treated with antibiotics and went home and did okay. He feels now that he needs to take undergo surgery and get rid of his gall bladder . In ER, afebrile here,no leukocytosis, vitals seem stable. GB US did show GB sludge, CBD dilated up toabout 1 cm. However his liver enzymes and bili WNL at this time. During my encounter, after he got pain meds, I did not appreciate tenderness on RUQ, he seems to be stable, pain has gotten better. Decision was made to keep him here for further evaluation and management. Review of Systems Review of Systems All other systems reviewed & are negative unless noted below or in HPI [facility] Medical History Restless leg syndrome HTN (hypertension) Heart attack Surgical History Hx of heart artery stent History of appendectomy History of tonsillectomy Social History Smoking Status: Current every day smoker Tobacco Type: cigarettes Substance Use Type: Alcohol Substance Abuse Comment: etoh occasionally Meds Medications and Allergies Allergies No Known Allergies Allergy (Verified 07/23/24 20:58) Home Medications Rosuvastatin 40 mg PO .daily hs 01/24/23 [History Confirmed 07/24/24] carvedilol 6.25 mg tablet (Coreg) 6.25 mg PO DAILY 01/24/23 [History Confirmed 07/24/24] gabapentin 600 mg tablet 600 mg PO .prn pain 01/24/23 [History Confirmed 07/24/24] pramipexole 0.5 mg tablet 0.5 mg PO DAILY 01/24/23 [History Confirmed 07/24/24] prasugrel HCl 10 mg tablet 10 mg PO DAILY 01/24/23 [History Confirmed 07/24/24] tramadol 50 mg tablet 50 mg PO .prn 01/24/23 [History Confirmed 07/24/24] tizanidine 4 mg tablet 4 mg PO .prn pain 07/23/24 [History Confirmed 07/24/24] Exam Physical Exam Vital Signs: Temp Pulse Resp BP Pulse Ox O2 Del Method 98.2 F 90 18 142/85 H 96 Room Air 07/23/24 21:00 07/24/24 00:06 07/24/24 00:06 07/24/24 00:06 07/24/24 00:06 07/24/24 00:06 Narrative: Const General: cooperative HEENT Normal oropharyngeal mucosa without any ulcers or exudates Eyes: Conjunctiva normal Pulmonary Auscultation: clear to auscultation , no crackles, no wheezes Cardiovascular Rate: normal rate Rhythm: regular rhythm Heart Sounds: S1 normal, S2 normal and no murmurs GI Inspection: non-distended Palpation: soft, not firm and nontender. No rigidity or rebound. Deferred Neuro General: alert, awake and oriented x3. No obvious new focal deficit Musculoskeletal: normal range of motion Extrem General: no cyanosis, no pedal edema Psych Appearance: appropriate affect. Grossly normal Results - Hospitalist H&P Lab Results Labs: Laboratory Last Values Corrected WBC 6.4 X10E3/uL (4.1-10.5) 07/23/24 22:27 Uncorrected WBC Count 6.4 x10E3/uL (4.1-10.5) 07/23/24 22:27 RBC 4.66 x10E6/uL (3.90-5.60) 07/23/24 22:27 Hgb 14.6 g/dL (13.0-17.0) 07/23/24 22:27 Hct 41.1 % (38.8-50.0) 07/23/24 22:27 MCV 88.2 fl (83.5-101) 07/23/24 22:27 MCH 31.3 pg (27.5-35.2) 07/23/24: MCHC 35.4 g/dL (32.5-35.6) 07/23/24: RDW 13.2 % (12.0-14.8) 07/23/24 Plt Count 222 x10E3/uL (150-450) 07/23/24: MPV 7.0 fl (6.6-10.1) 07/23/24: Neut % (Auto) 48.6 % (.) 07/23/24: Lymph % (Auto) 37.7 % (.) 07/23/24: Leake % (Auto) 10.0 % (.) 07/23/24: Eos % (Auto) 3.0 % (.) 07/23/24 Baso % (Auto) 0.7 % (.) 07/23/24 Nucleat RBC Rel Count 0.1 /100 WBC (0-0.5) 07/23/24 Neut # (Auto) 3.1 x10E3/uL (1.8-7.7) 07/23/24: Lymph # (Auto) 2.4 x10E3/uL (1.00-4.8) 07/23/24: Leake # (Auto) 0.6 x10E3/uL (0.0-0.8) 07/23/24 Eos # (Auto) 0.2 x10E3/uL (0.0-0.45) 07/23/24 Baso # (Auto) 0.0 x10E3/uL (0.0-0.2) 07/23/24 Monocyte Dist Width 16.64 % (0.00-20.00) 07/23/24: PT 11.5 Seconds (9.0-12.9) 07/23/24: INR 1.0 07/23/24 APTT 32.1 Seconds (25.1-36.5) 07/23/24 APTT Cancelled 07/23/24: PHA Creatinine Clear 65.96 07/23/24: Sodium 141 mmol/L (136-145) 05/03/25 22:27 Potassium 4.1 mmol/L (3.5-5.1) 07/23/24 22:27 Chloride 106 mmol/L (98-107) 07/23/24 22:27 Carbon Dioxide 30.1 mmol/L (21.0-31.0) 07/23/24 22:27 Anion Gap 9.0 mEq/L (6.0-15.0) 07/23/24 22:27 BUN 17 mg/dL (7-25) 07/23/24 22:27 Creatinine 1.27 mg/dL (0.70-1.30) 07/23/24 22:27 Est GFR (CKD-EPI) > 60.0 mL/Min 07/23/24 22:27 Glucose 107 mg/dL (70-100) H 07/23/24 22:27 Calcium 9.3 mg/dL (8.6-10.3) 07/23/24 22:27 Total Bilirubin 0.4 mg/dl (0.3-1.0) 07/23/24 22:27 AST 13 U/L (13-39) 07/23/24 22:27 ALT 15 U/L (7-52) 07/23/24 22:27 Alkaline Phosphatase 76 U/L (34-104) 07/23/24 22: Total Creatine Kinase 116 U/L (30-223) 07/23/24 22:27 Troponin I High Sens 5 ng/L (0-20) 07/23/24 22:27 B-Natriuretic Peptide 16.0 pg/mL (5-100) 07/23/24 22:27 Total Protein 6.9 gm/dL (6.4-8.9) 07/23/24 22:27 Albumin 4.3 gm/dL (3.5-5.7) 07/23/24 22:27 Globulin 2.6 gm/dL 07/23/24 22:27 Albumin/Globulin Ratio 1.7 07/23/24 22:27 Lipase 33.0 U/L (11.0-82.0) 07/23/24 22:27 Assessment & Plan Assessment/Plan (1) Gallbladder disease: Plan -Abdominal pain, mostly RUQ, hx of GB disease with acute cholecystitis treated conservatively in 2022 with oral AB -Afebrile here, no leukocytosis. He does not feel as sick as was last time. -His symptoms and clinical scenario sounds more likely biliary colic. However with CBD dilation up to 1 cm, with normal LFTs and bili. Suspect passed stone, or with his early presentation these levels could rise on repeat labs. At this juncture, he got zosyn in ER, I would hold off further AB, since his labs seem unremarkable and observe for now. Will consult general surgery for input. Pt interested in cholecystectomy either inpt or outpt depending on his hospital course and surgery team decision and discussion with patient. Follow official GBUS report. Will provide supportive care at this time. Diet: low fat DVT ppx: Heparin reviewed and resumed home meds Discussed with patient at bedside, he is in agreement with plan. IP vs OBS Justification Based on differential dx, clinical care plan, and risk of adverse events, if untreated, in my clinical judgement this patient requires an acute care setting as: OBSERVATION because of an expectation of an under 2 midnight stay. Estimated length of stay (# of days): 2 Documented By: Higinio Minaya MD 07/24/24 00 15 Signed By: <Electronically signed by Higinio Minaya MD> 07/24/24 0128 [facility] Work Phone: 1(126) 650-966805-04-2025 Evaluation note* Diagnosis Onset Date Resolution Status Admit Date Abdominal pain acute July 24, 2 025 12:02am Cholelithiasis acute July 24, 2 025 12:02am Common bile duct dilatation acute July 24, 2024 12:02am Coronary artery disease acute M ay 2024 12:02am Gallbladder disease acute July 242024 12:02am [facility] Work Phone: [phone] 560-431205-04-2025 Evaluation note* Diagnosis Onset Date Resolution Status Admit Date Cholelithiasis acute July 24, 2 025 12:02am Common bile duct dilatation acute July 24, 2024 12:02am Coronary artery disease acute M ay 2024 12:02am Gallbladder disease acute July 242024 12:02am Abdominal pain deleted July 24, 2 025 12:02am [facility] Work Phone: [phone] 181-405505-04-2025 Evaluation note* Diagnosis Onset Date Resolution Status Admit Date Cholelithiasis acute July 24 12:02am Common bile duct dilatation acute July 24, 2024 12:02am Coronary artery disease acute M 2024 12:02am Gallbladder disease acute July 242024 12:02am Abdominal pain deleted July 24 12:02am Gallbladder disease acute September 13, 2024 1:48am Intra-abdominal haematoma acute September 13, 2024 1:48am Mesenteric hematoma acute September 13, 2024 1:48am Syncope acute September 13 1:48am [facility] Work Phone: 1([phone] 387-902605-04-2025 [place] [address] Hospitalist H&P Signed Patient: Deion Dumont MR#: [id number] : 1960 Acct:[id number] Age/Sex: 63 / M Adm Date: Loc: Room: [address] [place] [address] Type: ADM INOo Attending Dr: Higinio Minaya MD Copies to: NO FAMILY PHYSICIAN Higinio Minaya MD~ HPI DATE OF EXAMINATION: 07/24/24 CHIEF COMPLAINT: abd pain HISTORY OF PRESENT ILLNESS: Patient is a 63-year-old male with medical history as listed below presented to ER due to left sided chest pain however he tells me its right sided abdominal pain. Patient reports that he has been having this right upper quadrant pain over the past week and has been dealing with it with tylenol and tramadol. He does report onset of symptoms 2-3 hours after meals, intermittent in nature, constant in course then relieved in few hours after taking pain meds. mostly hissymptoms occur at night time. denies any associated symptoms of fever, nausea, vomiting, chills, diarrhea. Pain mostly radiating to his epigastric area. He didhave signs of cholecystitis in the past in 2022 per chart and elected to be treated with antibiotics and went home and did okay. He feels now that he needs to take undergo surgery and get rid of his gall bladder . In ER, afebrile here,no leukocytosis, vitals seem stable. GB US did show GB sludge, CBD dilated up toabout 1 cm. However his liver enzymes and bili WNL at this time. During my encounter, after he got pain meds, I did not appreciate tenderness on RUQ, heseems to be stable, pain has gotten better. Decision was made to keep him here for further evaluation and management. Review of Systems Review of Systems All other systems reviewed & are negative unless noted below or in HPI [facility] Medical History Restless leg syndrome HTN (hypertension) Heart attack Surgical History Hx of heart artery stent History of appendectomy History of tonsillectomy Social History Smoking Status: Current every day smoker Tobacco Type: cigarettes Substance Use Type: Alcohol Substance Abuse Comment: etoh occasionally Meds Medications and Allergies Allergies No Known Allergies Allergy (Verified 07/23/24 20:58) Home Medications Rosuvastatin 40 mg PO .daily hs 01/24/23 [History Confirmed 07/24/24] carvedilol 6.25 mg tablet (Coreg) 6.25 mg PO DAILY 01/24/23 [History Confirmed 07/24/24] gabapentin 600 mg tablet 600 mg PO .prn pain 01/24/23 [History Confirmed 07/24/24] pramipexole 0.5 mg tablet 0.5 mg PO DAILY 01/24/23 [History Confirmed 07/24/24] prasugrel HCl 10 mg tablet 10 mg PO DAILY 01/24/23 [History Confirmed 07/24/24] tramadol 50 mg tablet 50 mg PO .prn 01/24/23 [History Confirmed 07/24/24] tizanidine 4 mg tablet 4 mg PO .prn pain 07/23/24 [History Confirmed 07/24/24] Exam Physical Exam Vital Signs: Temp Pulse Resp BP Pulse Ox O2 Del Method 98.2 F 90 18 142/85 H 96 Room Air 07/23/24 21:00 07/24/24 00:06 07/24/24 00:06 07/24/24 00:06 07/24/24 00:06 07/24/24 00:06 Narrative: Const General: cooperative HEENT Normal oropharyngeal mucosa without any ulcers or exudates Eyes: Conjunctiva normal Pulmonary Auscultation: clear to auscultation , no crackles, no wheezes Cardiovascular Rate: normal rate Rhythm: regular rhythm Heart Sounds: S1 normal, S2 normal and no murmurs GI Inspection: non-distended Palpation: soft, not firm and nontender. No rigidity or rebound. Deferred Neuro General: alert, awake and oriented x3. No obvious new focal deficit Musculoskeletal: normal range of motion Extrem General: no cyanosis, no pedal edema Psych Appearance: appropriate affect. Grossly normal Results - Hospitalist H&P Lab Results Labs: Laboratory Last Values Corrected WBC 6.4 X10E3/uL (4.1-10.5) 07/23/24 22:27 Uncorrected WBC Count 6.4 x10E3/uL (4.1-10.5) 07/23/24 22: RBC 4.66 x10E6/uL (3.90-5.60) 07/23/24 22: Hgb 14.6 g/dL (13.0-17.0) 07/23/24 22: Hct 41.1 % (38.8-50.0) 07/23/24 22: MCV 88.2 fl (83.5-101) 07/23/24 22: MCH 31.3 pg (27.5-35.2) 07/23/24 22: MCHC 35.4 g/dL (32.5-35.6) 07/23/24 22: RDW 13.2 % (12.0-14.8) 07/23/24 22: Plt Count 222 x10E3/uL (150-450) 07/23/24 22: MPV 7.0 fl (6.6-10.1) 07/23/24 22: Neut % (Auto) 48.6 % (.) 07/23/24 22: Lymph % (Auto) 37.7 % (.) 07/23/24: Leake % (Auto) 10.0 % (.) 07/23/24: Eos % (Auto) 3.0 % (.) 07/23/24: Baso % (Auto) 0.7 % (.) 07/23/24: Nucleat RBC Rel Count 0.1 /100 WBC (0-0.5) 05/03/25 22:27 Neut # (Auto) 3.1 x10E3/uL (1.8-7.7) 07/23/24: Lymph # (Auto) 2.4 x10E3/uL (1.00-4.8) 07/23/24: Leake # (Auto) 0.6 x10E3/uL (0.0-0.8) 07/23/24: Eos # (Auto) 0.2 x10E3/uL (0.0-0.45) 07/23/24 22: Baso # (Auto) 0.0 x10E3/uL (0.0-0.2) 07/23/24: Monocyte Dist Width 16.64 % (0.00-20.00) 07/23/24: PT 11.5 Seconds (9.0-12.9) 07/23/24: INR 1.0 07/23/24: APTT 32.1 Seconds (25.1-36.5) 07/23/24: APTT Cancelled 07/23/24: PHA Creatinine Clear 65.96 07/23/24 22: Sodium 141 mmol/L (136-145) 07/23/24: Potassium 4.1 mmol/L (3.5-5.1) 07/23/24: Chloride 106 mmol/L (98-107) 07/23/24: Carbon Dioxide 30.1 mmol/L (21.0-31.0) 07/23/24: Anion Gap 9.0 mEq/L (6.0-15.0) 07/23/24: BUN 17 mg/dL (7-25) 07/23/24: Creatinine 1.27 mg/dL (0.70-1.30) 07/23/24: Est GFR (CKD-EPI) > 60.0 mL/Min 07/23/24: Glucose 107 mg/dL (70-100) H 07/23/24: Calcium 9.3 mg/dL (8.6-10.3) 07/23/24: Total Bilirubin 0.4 mg/dl (0.3-1.0) 05/03/25 22:27 AST 13 U/L (13-39) 07/23/24 22:27 ALT 15 U/L (7-52) 07/23/24 22:27 Alkaline Phosphatase 76 U/L (34-104) 07/23/24 22:27 Total Creatine Kinase 116 U/L (30-223) 07/23/24 22:27 Troponin I High Sens 5 ng/L (0-20) 07/23/24 22: B-Natriuretic Peptide 16.0 pg/mL (5-100) 07/23/24 22:27 Total Protein 6.9 gm/dL (6.4-8.9) 07/23/24 22: Albumin 4.3 gm/dL (3.5-5.7) 07/23/24 22: Globulin 2.6 gm/dL 07/23/24 22: Albumin/Globulin Ratio 1.7 07/23/24 22: Lipase 33.0 U/L (11.0-82.0) 07/23/24 22:27 Assessment & Plan Assessment/Plan (1) Gallbladder disease: Plan -Abdominal pain, mostly RUQ, hx of GB disease with acute cholecystitis treated conservatively in 2022 with oral AB -Afebrile here, no leukocytosis. He does not feel as sick as was last time. -His symptoms and clinical scenario sounds more likely biliary colic. However with CBD dilation up to 1 cm, with normal LFTs and bili. Suspect passed stone, or with his early presentation these levels could rise on repeat labs. At this juncture, he got zosyn in ER, I would hold off further AB, since his labs seem unremarkable and observe for now. Will consult general surgery for input. Pt interested in cholecystectomy either inpt or outpt depending on his hospital course and surgery team decision and discussion with patient. Follow official GBUS report. Will provide supportive care at this time. Diet: low fat DVT ppx: Heparin reviewed and resumed home meds Discussed with patient at bedside, he is in agreement with plan. IP vs OBS Justification Based on differential dx, clinical care plan, and risk of adverse events, if untreated, in my clinical judgement this patient requires an acute care setting as: OBSERVATION because of an expectation of an under 2 midnight stay. Estimated length of stay (# of days): 2 Documented By: Higinio Minaya MD 07/24/24 00 15 Signed By: 07/24/24 0128 [facility]10-30-2024 Telephone encounter Note* Telephone Encounter - Loren Newell NP - 01/20/2024 11:49 AM EDT Sent [id number] Miscellaneous Notes* Telephone Encounter - Loren Newell NP - 01/20/2024 11:49 AM EDT Sent * Telephone Encounter - Loren Newell NP - 01/20/2024 10:09 AM EDT Please let me know if he is getting worse? He is on the number one antibiotic used for pneumonia and has only been on it three days. If he is getting worse I can add the Zpak. Please let me know. * Telephone Encounter - Niurka Maurice MA - 01/20/2024 9:58 AM EDT Patient called stating was seen in Urgent Care on Thursday by Provider Loren Newell. Patient statesthe Antibiotic he was put on is not working, he is getting worse. Patient would like a different Antibiotic to be sent to Preferred pharmacy [facility] in [place]. Please review and Advise. documented in this encounterTexas [facility] [id number] Telephone encounter Note* Telephone Encounter - Loren Newell NP - 01/20/2024 10:09 AM EDT Please let me know if he is getting worse? He is on the number one antibiotic used for pneumonia and has only been on it three days. If he is getting worse I can add the Zpak. Please let me know. [facility] [id number] Telephone encounter Note* Telephone Encounter - Niurka Maurice MA - 01/20/2024 9:58 AM EDT Patient called stating was seen in Urgent Care on Thursday by Provider Loren Newell. Patient statesthe Antibiotic he was put on is not working, he is getting worse. Patient would like a different Antibiotic to be sent to Preferred pharmacy [facility] in [place]. Please review and Advise. [facility] [id number] Telephone encounter Note* Telephone Encounter - Rachelle Pineda MA - 01/19/2024 12:54 PM EDT Spoke with pt, he understood and had no questions at the time of the call. [facility] [id number] Miscellaneous Notes* Telephone Encounter - Rachelle Pineda MA - 01/19/2024 12:54 PM EDT Spoke with pt, he understood and had no questions at the time of the call. * Telephone Encounter - Loren Newell NP - 01/19/2024 9:59 AM EDT Please call patient and tell him that he does have what appears to be developing pneumonia in the right lower lobe. I want him to take all of his medications as I discussed with him on Thursday. I wanthim to have a repeat CXR in 2 weeks to make sure this is better. Tell him I sent the order here to [facility] and he can come any time to the second floor to get that done around the second week in [place]. documented in this encounterTexas [facility] [id number] Telephone encounter Note* Telephone Encounter - Loren Newell NP - 01/19/2024 9:59 AM EDT Please call patient and tell him that he does have what appears to be developing pneumonia in the right lower lobe. I want him to take all of his medications as I discussed with him on Thursday. I wanthim to have a repeat CXR in 2 weeks to make sure this is better. Tell him I sent the order here to [facility] and he can come any time to the second floor to get that done around the second week in [place]. [facility] [id number] History of Present illness Narrative* Loren Newell NP - 01/17/2024 10:25 AM EDT Images from the original note were not included. HPI: Historian of HPI: patient Deion Dumont is a 63 y.o. male who presents today to the Urgent Care with the following complaints and denials which have been present for 1 week(s) pt denies to any vomiting or diarrhea. Pt wouldlike to have a chest x rays at this time. C/O Denies Symptom Comments [x] [] Runny Nose [] [x] Difficulty Swallowing [x] [] Sore Throat Slight sore throat [x] [] Cough SOB, chest congestion, wheezing, dry cough [] [x] Ear Pain [x] [] Fever [x] [] Chills [x] [] Nasal Congestion [x] [] Myalgia [x] [] Sinus Pain [] [x] Sinus Pressure Additional Comments: pt has taken tylenol OTC medication without relief Visit Vitals BP 124/88 (BP Location: Left arm, Patient Position: Sitting, BP Cuff Size: Large adult) Pulse 86 Temp 98.8 F Wt 202 lb 13.2 oz SpO2 96% Smoking Status Every Day ROS: A complete system ROS was performed and negative aside from the pertinent positives noted in the HPI and PE. Physical Exam Constitutional: Appearance: He is ill-appearing. HENT: Head: Normocephalic. Right Ear: Tympanic membrane normal. Left Ear: Tympanic membrane normal. Ears: Comments: Bilateral ear canals with redness Nose: Nose normal. Mouth/Throat: Mouth: Mucous membranes are moist. Pharynx: Posterior oropharyngeal erythema present. Eyes: Pupils: Pupils are equal, round, and reactive to light. Cardiovascular: Rate and Rhythm: Normal rate and regular rhythm. Pulmonary: Effort: Pulmonary effort is normal. Breath sounds: Wheezing and rhonchi present. Skin: General: Skin is warm and dry. Neurological: Mental Status: He is alert and oriented to person, place, and time. Psychiatric: Mood and Affect: Mood normal. Assessment/Plan 1. Acute cough (Primary) Reviewed preliminary CXR with patient and . Will treat as discussed. Advised patient no NSAIDS whole on the prednisone. Patient may take Tylenol. Advised to increase rest and fluid intake. OARRS reviewed with no concerns for cough syrup. Patient was advised to report to ER with any worsening ofsymptoms or worsening shortness of breath. He is to follow with if symptoms are not improving. - XR chest 2 views; Future - predniSONE (Deltasone) 10 MG tablet; Take 6 tablets (60 mg) by mouth Daily for 2 days, THEN 5 tablets (50 mg) Daily for 2 days, THEN 4 tablets (40 mg) Daily for 2 days, THEN 3 tablets (30 mg) Dailyfor 2 days, THEN 2 tablets (20 mg) Daily for 2 days, THEN 1 tablet (10 mg) Daily for 2 days. Dispense: 42 tablet; Refill: 0 - guaiFENesin-codeine (Robitussin-AC) 100-10 MG/5ML syrup; Take 10 mL by mouth every 8 (eight) hours if needed for cough for up to 5 days Dispense: 150 mL; Refill: 0 2. Lower respiratory infection As above - amoxicillin-clavulanate (Augmentin) 875-125 MG tablet; Take 1 tablet (875 mg) by mouth in the morning and 1 tablet (875 mg) before bedtime. Do all this for 10 days. Dispense: 20 tablet; Refill: 0 3. Shortness of breath As above - predniSONE (Deltasone) 10 MG tablet; Take 6 tablets (60 mg) by mouth Daily for 2 days, THEN 5 tablets (50 mg) Daily for 2 days, THEN 4 tablets (40 mg) Daily for 2 days, THEN 3 tablets (30 mg) Dailyfor 2 days, THEN 2 tablets (20 mg) Daily for 2 days, THEN 1 tablet (10 mg) Daily for 2 days. Dispense: 42 tablet; Refill: 0 4. Other fatigue As above 5. Acute bilateral low back pain without sciatica As above - predniSONE (Deltasone) 10 MG tablet; Take 6 tablets (60 mg) by mouth Daily for 2 days, THEN 5 tablets (50 mg) Daily for 2 days, THEN 4 tablets (40 mg) Daily for 2 days, THEN 3 tablets (30 mg) Dailyfor 2 days, THEN 2 tablets (20 mg) Daily for 2 days, THEN 1 tablet (10 mg) Daily for 2 days. Dispense: 42 tablet; Refill: 0 Follow up if symptoms worsen or fail to improve. Loren Newell NP documented in this encounterTexas County [facility] [id number] NoteLipid abnormalities are uncontrolled r/t he is not taking his statin Extended discussion about importance of taking his statin he promises he will take it on a daily basis and I swelling you can take it in the mornings and the evenings is fine As he gets it in every day. Repeat labs in 2 to 3 months he voiced understandingAdena [facility]09-[facility]-2024 NoteUTP CARDIOLOGY PROGRESS NOTE HPI: Deion Dumont is a 63 y.o. male here for routine F/U and review of stress test HPI 63 yo male presents for routine F/U for CAD s/p stent, dyspnea. Currently patient denies chest pain, shortness of breath, orthopnea or palpitations. He remains rather busy continues to work without any limiting symptoms. Admits that he typically forgets to take his Crestor in the evenings. Review of Systems Constitutional: Negative. Respiratory: Negative. Cardiovascular: Negative. Neurological: Negative. All other systems reviewed and are negative. Visit Vitals BP 125/77 Pulse 90 Ht 1.753 m (5' 9 ) Wt 94.8 kg (209 lb) SpO2 95% BMI 30.86 kg/m??? Smoking Status Every Day BSA 2.15 m??? No Known Allergies Medications: Current Outpatient Medications on File Prior to Visit Medication Sig Dispense Refill aspirin 325 mg tablet Take 1 tablet every day by oral route. carvedilol (Coreg) 6.25 mg tablet Take 1 tablet (6.25 mg) by mouth with breakfast and with evening meal. 180 tablet 3 gabapentin (Neurontin) 600 mg tablet TAKE 1 TABLET BY MOUTH TWICE DAILY NEEDED FOR NERVE PAIN pramipexole (Mirapex) 0.5 mg tablet TAKE 1 TABLET BY MOUTH ONCE DAILY AT BEDTIME NEEDED FOR RESTLESS LEGS prasugrel (Effient) 10 mg tablet Take 1 tablet (10 mg) by mouth in the morning. 90 tablet 3 rosuvastatin (Crestor) 40 mg tablet Take 1 tablet (40 mg) by mouth at bedtime. 90 tablet 3 traMADol (Ultram) 50 mg tablet TAKE 1 TO 2 TABLETS BY MOUTH TWICE DAILY FOR PAIN FOR 5 DAYS. NO DRIVING. albuterol 90 mcg/actuation inhaler INHALE 2 PUFFS BY MOUTH 4 TIMES DAILY NEEDED FOR SHORTNESS OF BREATH FOR WHEEZING No current facility-administered medications on file prior to visit. Physical Exam: Constitutional: Appearance: Normal appearance. Without apparent distress HENT: Head: Normocephalic and atraumatic. Nose: Nose normal. Mouth/Throat: Mouth: Mucous membranes are moist. Eyes: Extraocular Movements: Extraocular movements intact. Conjunctiva/sclera: Conjunctivae normal. Neck: Vascular: No JVD. Cardiovascular: Rate and Rhythm: Normal rate and regular rhythm. Pulses: Dorsalis pedis pulses are 3 on the right side and 3on the left side. Posterior tibial pulses are 3 on the right side and 3 on the left side. Heart sounds: Normal heart sounds, S1 normal and S2 normal. Pulmonary: Effort: Pulmonary effort is normal. Breath sounds: Normal breath sounds. Abdominal: General: Bowel sounds are normal. Palpations: Abdomen is soft. Musculoskeletal: General: Normal range of motion. Cervical back: Normal range of motion. Right lower leg: No edema. Left lower leg: No edema. Skin: General: Skin is warm and dry. Capillary Refill: Capillary refill takes less than 2 seconds. Neurological: General: No focal deficit present. Mental Status: he is alert and oriented to person, place, and time. Psychiatric: Mood and Affect: Mood normal. Behavior: Behavior normal. Thought Content: Thought content normal. Judgment: Judgment normal. Labs: 01/26/23 CBC normal- WBC 7.2, HGB 14.6, Plt 267 Na 137, K+ 4.0 normal BUN 23, CR 1.49- GFR 47- elevated renal function Chol 209, Trig 142, HDL 30, LDL 151 Last lab values have been reviewed CV Testin12/08/2023 Routine stress test- normal no acute concerns No ischemia noted on ECG, SALVADOR score 6= low risk of coronary disease Echo: 12/26/2022 LVEF 55-60%, mildly increased LVH [...] left circumflex Normal global LV systolic function Assessment/Plan: Coronary atherosclerosis Coronary artery disease is unchanged. recommended lifelong DAPT therapy aspirin/Effient Continue GDMT- ASA, effient, coreg, crestor- Extended discussion with patient about his current lipid profile with elevated LDL and need to bring that down under 70 and importance of further coronary artery stenosis and OR that is very important he takes his Crestor every day and he voiced understanding Will repeat liver function and lipids again in 3 months Continue current treatment regimen. Dietary sodium restriction. Stop smoking. Continue current medications. Cardiac status will be reassessed in 1 year. Mixed hyperlipidemia Lipid abnormalities are uncontrolled r/t he is not taking his statin Extended discussion about importance of ta (more content not included)... [facility]09-[facility] NotePt is here for follow up after a stress test. Pt denies chest pain, palpatation, sob Review of Systems Cardiovascular: Negative for chest pain, dyspnea on exertion, irregular heartbeat, leg swelling, near-syncope, orthopnea, palpitations, paroxysmal nocturnal dyspnea and syncope. All other systems reviewed and are negative.[facility] 12-11-2023 NoteCoronary artery disease is unchanged. recommended lifelong DAPT therapy aspirin/Effient Continue GDMT- ASA, effient, coreg, crestor- Extended discussion with patient about his current lipid profile with elevated LDL and need to bring that down under 70 and importance of further coronary artery stenosis and OR that is very important he takes his Crestor every day and he voiced understanding Will repeat liver function and lipids again in 3 months Continue current treatment regimen. Dietary sodium restriction. Stop smoking. Continue current medications. Cardiac status will be reassessed in 1 year.[facility] 01-22-2022 NoteCARDIAC STRESS TEST Requesting Physician: Mervat Pettit MSN DIRECTOR OF WEB MARKETING-C Procedure Date:01/22/2022 Performing Physician: Александр Mcfarland M.D. [...] EKG evidence of ischemia. 3. Clinical correlation recommended.[facility] noteNo assessment information availableMagruder Memorial Hospital Ctr Work Phone: Evaluation note* Diagnosis Pneumonia of right lower lobe due to infectious organism- Primary documented in this encounter [facility] HealthcareEvaluation note* Diagnosis Lower respiratory infection- Primary Other diseases of respiratory system, not elsewhere classified documented [facility] this encounter [facility]* Diagnosis Acute cough- Primary Lower respiratory infection Other diseases of respiratory system, not elsewhere classified Shortness of breath Other fatigue Acute bilateral low back pain without sciatica Acute cough documented in this encounter [facility] HealthcareEvaluation note* Diagnosis Calculus of gallbladder with acute on chronic cholecystitis without obstruction- Primary documented [facility] this encounter [facility]* Diagnosis Calculus of gallbladder with acute on chronic cholecystitis without obstruction- Primary documented in this encounter [facility] HospitalHospital Discharge instructions Additional Instructions Return in 2 [...] worsening abscess and pain or any other concernsOhiohealth O'[facility] Work Phone: Hospital Discharge instructions Additional Instructions Finish your antibiotic Change the dressing as needed May keep it clean with soap and water Follow-up with family doctor for recheck Return to the ER for worsening redness swelling pain fever chills or any other concernsOhiohealth O'Bleness Hospital Work Phone: Hospital Discharge instructions Additional Instructions Continue your antibiotic Change dressing as needed For persistent swelling tenderness may follow-up with [facility] surgical Associates For worsening pain fever chills swelling drainage return to the [place] Work Phone: Hospital Discharge instructions Additional Instructions DISCHARGE INSTRUCTIONS FOR GENERAL SURGERY YOUR ACTIVITY MAY INCLUDE: -[Going up and down stairs slowly.] -[Walking around the house or outside if the weather is satisfactory.] -[No driving until you are seen in office and cleared for driving.] -Light housework or light work permitted in [2 weeks]. -Heavy lifting permitted [4 weeks] At your first office visit we will discuss: [Return to work, return to sports, return to exercise, etc.] WOUND CARE/INCISION CARE: -Keep incision clean and dry -[Showering is okay, no tub baths] -[Is it common to feel pulling or sharp sticking sensations in the area of incision, these sensations are a part of the normal healing process.] -[If you develop fever, increasing pain, redness, or swelling around the incision, please notify our office] MEDICATION -[Resume all previous medications that you were taking for problems unrelated to your surgery, unless informed otherwise. If there are any problems with this, please call the original prescribing doctor. If you have any other questions regarding medications, please call our office.] -[Over the counter medications such as Acetaminophen, Ibuprofen, Naproxen, and others may be used as directed for pain unless a prescription was provided.] You will probably see a a lot of bruising at the back or side do not be alarmed. Follow-up in office with Dr. Morrell previously scheduled. If any issues or concerns contact office or if severe pain or passing out go to emergency roomOhiohealth [facility] Work Phone: Summary Purpose Family History No Family History Records Found Relationship Condition Age at Onset Recorded Date/T mauricio mother Malignant neoplasm Unknown father Heart disease Unknown paternal grandmother Heart disease Unknown Advance Directives No Advanced Directives Records Found Advance Directive Response Recorded Date/ Time Advance Directives No October 05 2:37pm Chief Complaint and Reason for Visit Chief Complaint abd pain Personal Chief Complaint abd pain Personal packing removal Chief Complaint Personal packing removal abcess Chief Complaint Personal packing removal abcess packing removal Chief Complaint Admit Date Chest and abdominal pain July 24, 2024 1 2:02am Reason for Visit Admit Date Abdominal pain July 24, 2024 12:02a m Cholelithiasis July 24, 2024 12:02a m Common bile duct dilatation July 24 12:02am Coronary artery disease July 24, 2024 12 :02am Gallbladder disease July 24, 2024 12:02a m Chief Complaint Admit Date Chest and abdominal pain July 24, 2024 1 2:02am calculus cholecystitis August 29, 2024 4: 15pm Reason for Visit Admit Date Cholelithiasis July 24, 2024 12:02a m Common bile duct dilatation July 24 12:02am Coronary artery disease July 24, 2024 12 :02am Gallbladder disease July 24, 2024 12:02a m Abdominal pain July 24, 2024 12:02a m Chief Complaint Admit Date Chest and abdominal pain July 24, 2024 1 2:02am calculus cholecystitis August 29, 2024 4: 15pm calculus cholecystitis September 12, 2024 1 0:10am dizzy September 13, 2024 1:48 am Reason for Visit Admit Date Cholelithiasis July 24, 2024 12:02a m Common bile duct dilatation July 24 12:02am Coronary artery disease July 24, 2024 12 :02am Gallbladder disease July 24, 2024 12:02a m Abdominal pain July 24, 2024 12:02a m Gallbladder disease September 13, 2024 1:48 am Intra-abdominal haematoma September 13 1:48am Mesenteric hematoma September 13, 2024 1:48 am Syncope September 13, 2024 1:48 am Additional Source Comments (unrecognized sect ion and content) No Status Records FoundNo Status Records FoundNo Status Records FoundNo Status Records FoundNo Status Records FoundNo Status Records Found INFORMATION SOURCE (unrecogn ized section and content) DATE CREATED AUTHOR 09/15/2017 [place] [facility] DATE CREATED AUTHOR AUTHOR'S ORGANIZ ATION 11/10/2017 [facility] DATE CREATED AUTHOR AUTHOR'S ORGANIZ ATION 03/05/2022 [facility] DATE CREATED AUTHOR AUTHOR'S ORGANIZ ATION 07/30/2024 [facility] DATE CREATED AUTHOR AUTHOR'S ORGANIZ ATION 10/10/2024 [facility] EPIC DATE CREATED AUTHOR AUTHOR'S ORGANIZ ATION 12/10/2024 [facility] Care Teams (unrecognized sec tion and content) Team Status: Active Member Role Status Dates PHYSICIAN NO FAMILY Primary Care Provider Active Team Status: Inactive Member Role Status Dates PHYSICIAN NO FAMILY Primary Care Provider Active Deepika Vallejo , [facility] Emergency Provider Active Team Status: Inactive Member Role Status Dates PHYSICIAN NO FAMILY Primary Care Provider Active Oren Hall DO Emergency Provider Active Emmy Vargas MD RES Active Team Status: Inactive Member Role Status Dates PHYSICIAN NO FAMILY Primary Care Provider Active Pop Matthews APRN Emergency Provider Active Team Status: Inactive Member Role Status Dates PHYSICIAN NO FAMILY Primary Care Provider Active Start: July 24, 2024 End: July 24, 2024 Kristen Bailey Jr, MD Emergency Provider Active Start: July 24, 2024 End: July 24, 2024 Higinio Minaya MD Admit Provider Active Sta rt: July 24, 2024 End: July 24, 2024 Dm Torres DO Attending Provider Active Start: July 24, 2024 End: July 24, 2024 Morgan Morrell DO Other Provider Active Start: Roman proctor 2024 End: July 24, 2024 Camp Assistant Relationship Specialty Start Date End Date Unallocated, Jean-Pierres MD Gopi [facility] [place] [address] PCP - General Family Medicine 08/09/24 Camp Assistant Relationship Specialty Start Date End Date UnallocatedCecily MD [facility] [address] [facility] [place] [address] PCP - General Family Medicine 08/09/24 Team Status: Active Member Role Status Dates Stanley Muñoz MD Primary Care Provider Active Team Status: Inactive Member Role Status Dates Morgan Morrell DO Attending Provider Active Start : August 29, 2024 End: August 29, 2024 Stanley Muñoz MD Primary Care Provider Active Start: August 29, 2024 End: August 29, 2024 Camp Assistant Relationship Specialty Start Date End Date Unallocated, Cecily Nguyễn MD [facility] [address] [facility] [place] [address] PCP - General Family Medicine 08/09/24 Team Status: Inactive Member Role Status Dates Morgan Morrell DO Attending Provider Active Start : September 12, 2024 End: September 12, 2024 Stanley Muñoz MD Primary Care Provider Active Start: September 12, 2024 End: September 12, 2024 Team Status: Inactive Member Role Status Dates Stanley Muñoz MD Primary Care Provider Active Start: September 13, 2024 End: September 14, 2024 Colby Malagon DO Emergency Provider Active St art: September 13, 2024 End: September 14, 2024 Adam Ashley MD Admit Provider Active Start: September 13, 2024 End: September 14, 2024 Adam Ashley MD Attending Provider Active Sta rt: September 13, 2024 End: September 14, 2024 Camp Assistant Relationship Specialty Start Date End Date UnallocatCecily MD [facility] [place] [address] PCP - General Family Medicine 08/09/24 Goals (unrecognized section and content) Goals may be documented in a n alternate sectionGoals may be documented in an alternate sectionGoals may be documented in an alternate sectionGoals may be documented in an alternate section Reason for Visit (unrecogniz ed section and content) Reason Comments 2nd week post hosp f/u non surgical GB Reason Comments 1st po Lap aron Reason Comments 3rd pow lap aron FOR RECORDS PERTAINING TO PATIENTS WHO ARE [...] BE BASED ON THE PRIMARY CLINICAL RECORDS. [facility] [employer] [facility]. provides no warranty or guarantee of the accuracy or completeness of information in this document.
--- OUTSIDE RECORDS SUMMARY | 2025-01-03 16:15 | XMS_ITS | Encounter Summary ---
Author Organization [facility] Address [address] [facility] [place] [address] Care Team Providers Care Terrazzo Tile Maker Name Role Phone Stanley Muñoz MD Primary Care Provider Unav ailable Reason for Visit * Reason Comments Med Refill Encounter Details Date Type Department Care Team (Late st Contact Info) Description 02/02/2022 Refill [facility] [address] [place] [phone] Mervat Vital, [employer] [address] [place] [address] Blood clot associated with vein wall inflammation Social History Tobacco Use Types Packs/Day Years Used Date Smoking Tobacco: Never Assessed Sex and Gender Information Value Date Recorded Sex Assigned at Male 07/25/2024 11:50 AM EDT Legal Sex Male 11:27 PM EDT Gender Identity Male 07/25/2024 11:50 AM EDT Sexual Orientation Heterosexual or Straight 07/2024 11:50 AM EDT documented as of this encounter Plan of Treatment Upcoming Encounters Date Type Department Care Team (Late st Contact Info) Description 01/10/2025 3:20 PM EDT Office Visit [facility] [address] [place] [address] Minnie Trammell, TIMBER TREATING TANK OPERATOR [address] [place] [address] documented as of this encounter Visit Diagnoses Diagnosis Blood clot associated with vein wall inflammation Phlebitis and thrombophlebitis of unspecified site documented in this encounter Care Teams Terrazzo Tile Maker Relationship Specialty Start Date End Date Stanley Muñoz MD [address] [facility] [address] PCP - General 12/11/23 documented as of this encounter
--- OUTSIDE RECORDS SUMMARY | 2025-01-03 16:15 | XMS_ITS | Encounter Summary ---
Author Organization [facility] Address [address] [place] [address] Care Team Providers Care Center Machine Operator Name Role Phone Unallocated, Noms Provider Primary Care Provi kevin Encounter Details Date Type Department Care Team (Late st Contact Info) Description 09/14/2024 Orders Only [facility] [address] [address] Natasha Lancaster DO [address] [place] [address] Social History Tobacco Use Types Packs/Day Years Used Date Smoking Tobacco: Every Day Cigarettes Smokeless Tobacco: Never Alcohol Use Standard Drinks/Week Comments Defer 0 (1 standard drink = 0.6 oz pur e alcohol) Sex and Gender Information Value Date Recorded Sex Assigned at Not on file Legal Sex Male 6:45 PM EDT Gender Identity Not on file Sexual Orientation Not on file documented as of this encounter Plan of Treatment Not on file documented as of this encounter Procedures Procedure Name Priority Date/Time Associated Diagnosis Comments GENERAL PATHOLOGY Routine 09/12/2024 3:45 PM EDT documented in this encounter Results * GENERAL PATHOLOGY (09/12/2024 3:45 PM EDT) Natasha Lancaster DO [facility] Final Result documented in this encounter Visit Diagnoses Not on filedocumented in this encounter Care Teams Center Machine Operator Relationship Specialty Start Date End Date Unallocated, Noms Provider, [address] [place] [address] PCP - General Family Medicine 08/09/24 documented as of this encounter
--- OUTSIDE RECORDS SUMMARY | 2025-01-03 16:15 | XMS_ITS | Clinical Summary ---
Author Organization [facility] Address [address] [place] [address] Care Team Providers Care Pattern Layout Worker Name Role Phone Unallocated, Noms Provider MD Primary Care Provi kevin Allergies No known active allergies Medications tiZANidine (Zanaflex) 4 MG tablet Active rosuvastatin (Crestor) 40 MG tablet 01/26/2023 Active pramipexole (Mirapex) 0.5 MG tablet 01/24/2023 Active gabapentin (Neurontin) 600 MG tablet 12/26/2023 Active carvedilol (Coreg) 6.25 MG tablet 01/24/2023 Active prasugrel (Effient) 10 MG tablet Take 10 mg by mouth in the morning. 03/02/2024 Active traMADol (Ultram) 50 MG tablet TAKE 1 TO 2 TABLETS BY MOUTH TWICE DAILY NEEDED FOR PAIN FOR 7 DAYS 12/26/2023 Active Active Problems Problem Noted Date Diagnosed Date Calculus of gallbladder with acute on chronic cholecystitis without obstruction 08/09/2024 Encounters Date Type Department Care Team Description 10/06/2024 3:30 PM EDT Office Visit [facility] [address] [place] [address] [address] [place] [phone] Morgan Lancaster DO Calculus of gallbladder with acute on chronic cholecystitis without obstruction (Primary Dx) 10/06/2024 Telephone [facility] [address] [place] [address] [address] [place] [phone] Morgan Lancaster DO 10/06/2024 Travel 10/03/2024 Travel from Last 3 Months Family History Medical History Relation Name Comments Heart disease Father Cancer Mother Cancer Paternal Grandmother Relation Name Status Comments Father Mother Paternal Grandmother Social History Tobacco Use Types Packs/Day Years Used Date Smoking Tobacco: Every Day Cigarettes Smokeless Tobacco: Never Tobacco Cessation:Ready to Q uit: Not Asked Alcohol Use Standard Drinks/Week Comments Defer 0 (1 standard drink = 0.6 oz pur e alcohol) Sex and Gender Information Value Date Recorded Sex Assigned at Not on file Legal Sex Male 6:45 PM EDT Gender Identity Not on file Sexual Orientation Not on file Last Filed Vital Signs Vital Sign Reading Time Taken Comments Blood Pressure 126/70 08/09/2024 3:45 PM EDT Pulse 86 01/17/2024 10:23 AM EDT Temperature 37.1 C (98.8 F) 01/17/2024 10:23 AM EDT Respiratory Rate - - Oxygen Saturation 96% 01/17/2024 10:23 AM EDT Inhaled Oxygen Concentration - - Weight 92.5 kg (204 lb) 09/22/2024 1:24 PM EDT Height 175.3 cm (5' 9 ) 09/22/2024 1:24 PM EDT Body Mass Index 30.13 09/22/2024 1:24 PM EDT Plan of Treatment Health Maintenance Due Date Last Done Comments CT Colonography 1960 Colonoscopy 1960 Colorectal Cancer Screening 1960 FIT-DNA 1960 FIT 1958 FOBT 1960 Sigmoidoscopy 1960 Pneumococcal Vaccine: 65+ Years (1 of 2 - PCV) 978 Influenza Vaccine (#1) 2024 Insurance [employer] Care Teams Pattern Layout Worker Relationship Specialty Start Date End Date Unallocated, Noms Provider, [address] [place], [place] [id number] PCP - General Family Medicine 08/09/24
--- OUTSIDE RECORDS SUMMARY | 2025-01-03 16:15 | XMS_ITS | Clinical Summary ---
Author Organization [facility] Address [address] [place] [address] Care Team Providers Care Human Services Supervisor Name Role Phone Stanley Muñoz MD Primary Care Provider Unav ailable Allergies No known active allergies Medications gabapentin (Neurontin) 600 mg tablet TAKE 1 TABLET BY MOUTH TWICE DAILY NEEDED FOR NERVE PAIN 6 Active pramipexole (Mirapex) 0.5 mg tablet TAKE 1 TABLET BY MOUTH ONCE DAILY AT BEDTIME NEEDED FOR RESTLESS LEGS Active traMADol (Ultram) 50 mg tablet TAKE 1 TO 2 TABLETS BY MOUTH TWICE DAILY FOR PAIN FOR 5 DAYS. NO DRIVING. 6 Active albuterol 90 mcg/actuation inhaler INHALE 2 PUFFS BY MOUTH 4 TIMES DAILY NEEDED FOR SHORTNESS OF BREATH FOR WHEEZING 2 Active carvedilol (Coreg) 6.25 mg tabletIndicatio ns:Coronary artery disease involving chickaloon coronary artery of chickaloon heart without angina pectoris Take 1 tablet (6.25 mg) by mouth with breakfast and with evening meal. 180 tablet 3 3 Active rosuvastatin (Crestor) 40 mg tabletIndicatio ns:Coronary artery disease involving chickaloon coronary artery of chickaloon heart without angina pectoris Take 1 tablet (40 mg) by mouth at bedtime. 90 tablet 3 3 Active prasugrel (Effient) 10 mg tabletIndicatio ns:Coronary artery disease due to lipid rich plaque Take 1 tablet (10 mg) by mouth in the morning. 90 tablet 3 4 03/02/20 25 Active tiZANidine (Zanaflex) 4 mg tablet Take 4 mg by mouth every 6 (six) hours if needed. Active aspirin 81 mg EC tablet Take 81 mg by mouth in the morning. Active nicotine polacrilex (Nicorette) 2 mg gumIndications: Coronary artery disease involving chickaloon coronary artery of chickaloon heart without angina pectoris,Stente d coronary artery,Tobacco dependence Chew 1 each (2 mg) if needed for smoking cessation. Chew at least 1 piece of gum every 1-2 hours while awake and whenever urge to smoke. May use up to 24 pieces a day for the first 6 weeks. Gradually reduce the amount with plan to stop after 3 months. 100 each 3 5 Active Active Problems Problem Noted Date Diagnosed Date Mixed hyperlipidemia 12/11/2023 Assessment & Plan (12/11/2023 3:21 PM EDT): Lipid abnormalities are uncontrolled r/t he is not taking his statin Extended discussion about importance of taking his statin he promises he will take it on a daily basis and I swelling you can take it in the mornings and the evenings is fine As he gets it in every day. Repeat labs in 2 to 3 months he voiced understanding Cardiovascular stress test abnormal 02/24/2022 Coronary atherosclerosis 02/24/2022 Overview (03/26/2022): 06/2016 1. Severe proximal/ostial stenosis of the right coronary artery successfully treated by balloon angioplasty and Synergy drug-eluting stent placement. 2. Moderate, heavily calcific disease of the left anterior descending Assessment & Plan (12/11/2023 3:17 PM EDT): Coronary artery disease is unchanged. recommended lifelong DAPT therapy aspirin/Effient Continue GDMT- ASA, effient, coreg, crestor- Extended discussion with patient about his current lipid profile with elevated LDL and need to bring that down under 70 and importance of further coronary artery stenosis and MS that is very important he takes his Crestor every day and he voiced understanding Will repeat liver function and lipids again in 3 months Continue current treatment regimen. Dietary sodium restriction. Stop smoking. Continue current medications. Cardiac status will be reassessed in 1 year. Assessment & Plan (03/26/2022 11:59 AM EST): Coronary artery disease is stable, MALINDA RCA continue risk factor modifications- heart healthy diet, regular exercise as tolerated and continue all medications. Continue ASA, prasugrel, crestor and coreg Dyspnea 02/24/2022 Assessment & Plan (03/26/2022 11:56 AM EST): Stable, no acute concerns Electrocardiogram abnormal 02/24/2022 Headache 01/21/2019 Stented coronary artery 01/21/2019 Overview (03/26/2022): 06/2016 1. Severe proximal/ostial stenosis of the right coronary artery successfully treated by balloon angioplasty and Synergy drug-eluting stent placement. 2. Moderate, heavily calcific disease of the left anterior descending Assessment & Plan (03/26/2022 12:00 PM EST): Stable no Acute concerns Lumbar herniated disc 03/28/2015 Meralgia paresthetica 03/28/2015 Radiculopathy, lumbar region 03/28/2015 Midline low back pain with sciatica 02/27/2015 Opioid withdrawal 02/27/2015 Restless leg syndrome 02/27/2015 Smoker 02/27/2015 Assessment & Plan (03/26/2022 11:57 AM EST): 10 min discussion again regarding smoking cessation- he is not ready to quit. Family History Medical History Relation Name Comments Heart disease Father Malig neoplastic disease Mother Relation Name Status Comments Father Mother Social History Tobacco Use Types Packs/Day Years Used Date Smoking Tobacco: Every Day Cigarettes Smokeless Tobacco: Never Tobacco Cessation:Ready to Q uit: Not Asked; Counseling Given: Not Answered Alcohol Use Standard Drinks/Week Comments Not Asked 0 (1 standard drink = 0.6 oz pur e alcohol) occasional [place] Safety & Environment Answer Date Rec orded Fear of Current or Ex-Partner Not on file Emotionally Abused Not on file 05/14/2023 Physically Abused Not on file 05/14/2023 Sexually Abused Not on file 05/14/2023 Physically or Sexually Abused Not on file Sex and Gender Information Value Date Recorded Sex Assigned at Male 07/25/2024 11:50 AM EDT Legal Sex Male 11:27 PM EDT Gender Identity Male 07/25/2024 11:50 AM EDT Sexual Orientation Heterosexual or Straight 07/2024 11:50 AM EDT Last Filed Vital Signs Vital Sign Reading Time Taken Comments Blood Pressure 110/72 07/27/2024 2:44 PM EDT Pulse 85 07/27/2024 2:44 PM EDT Temperature - - Respiratory Rate - - Oxygen Saturation 96% 07/27/2024 2:44 PM EDT Inhaled Oxygen Concentration - - Weight 94.3 kg (208 lb) 07/27/2024 2:44 PM EDT Height 175.3 cm (5' 9 ) 07/27/2024 2:44 PM EDT Body Mass Index 30.72 07/27/2024 2:44 PM EDT Plan of Treatment Upcoming Encounters Date Type Department Care Team (Late st Contact Info) Description 01/10/2025 3:20 PM EDT Office Visit [facility] [address] [place] [address] Minnie Trammell, PRECISION FILER HAND [address] [place] [phone] Health Maintenance Due Date Last Done Comments CT Colonography 1960 Colonoscopy 1960 Colorectal Cancer Screening 1958 FIT-DNA 1958 FIT 1958 FOBT 1960 Medicare Annual Wellness (AWV) 1958 Sigmoidoscopy 1958 Depression Screening 1970 Pneumococcal Vaccine: 50+ Years (1 of 2 - PCV) 1977 Adult Tetanus 1980 Zoster Vaccines (1 of 2) 2008 Fall Risk Screening 11/08/2023 COVID-19 Vaccine (2024-2 6 season) 2024 03/23/2021, 06/26/2020, 05/29/2020 Influenza Vaccine (#1) 2024 HIB Vaccines Aged Out No longer eligi ble based on patient's age to complete this topic HPV Vaccines Aged Out No longer eligi ble based on patient's age to complete this topic IPV Vaccines Aged Out No longer eligi ble based on patient's age to complete this topic Meningococcal B Vaccine Aged Out No l onger eligible based on patient's age to complete this topic Meningococcal Vaccine Aged Out No kavitha iggy eligible based on patient's age to complete this topic Rotavirus Vaccines Aged Out No longer eligible based on patient's age to complete this topic Insurance [employer] [place] [employer] Care Teams Human Services Supervisor Relationship Specialty Start Date End Date Stanley Muñoz MD [address] [facility] [facility] [address] PCP - General 12/11/23
--- NOTE | 2025-01-03 16:19 | CA_ITS ---
Patient Name: MCKAYLA CAMPOS MR#: [id number] : 1960 Exam Date: 01/03/2025 Ordering Doctor: ARASH BARRY CNP ECHOCARDIOGRAM REPORT PROCEDURE: CA ECHO DOPPLER COMPLETE INDICATIONS: DONOVAN COMPARISON: None. DESCRIPTION: COMPLETE ECHOCARDIOGRAM Real-time transthoracic echocardiography with 2D, M-mode, spectral and color flow Doppler performed. QUALITY: Technical quality was good. LEFT VENTRICLE: Normal chamber size. Moderate concentric left ventricular hypertrophy. Global left ventricular systolic function is normal. LV EF: Estimated left ventricular ejection fraction is 55-60%. DIASTOLIC: Diastolic function is indeterminate. ATRIAL SEPTUM: LEFT ATRIUM: Normal chamber size. RIGHT ATRIUM: Normal chamber size. RIGHT VENTRICLE: Normal chamber size. Normal right ventricular systolic function. TRICUSPID VALVE: Normal mobility and thickness. No stenosis with trivial regurgitation. No evidence of pulmonary hypertension. RVSP 20 mmHg. MITRAL VALVE: Normal mobility and thickness. No evidence of mitral valve stenosis. There is no mitral annular calcification. Trivial mitral regurgitation. AORTIC VALVE: Normal trileaflet appearance. No visible sclerosis. Normal leaflet mobility. No evidence of aortic valve stenosis. No aortic regurgitation. AORTIC ROOT: Normal diameter and appearance, measuring 3.8 cm. The ascending aorta measures 3.4 cm. PULMONIC VALVE: Normal thickness and mobility. No stenosis. Trivial regurgitation. PERICARDIUM: No evidence of pericardial effusion. IVC: Collapses with inspiration. Normal size PLEURA: CONCLUSION: 1. Moderate concentric left ventricular hypertrophy with normal systolic function. Estimated LVEF is 55 to 60%. 2. Normal right ventricular size and systolic function. 3. No significant valvular dysfunction. 4. Normal right-sided pressures. Adult Echocardiography Procedure Report Left Ventricle LVEDD (3.7 - 5.6 cm): 4.34 cm LVESD (2.2 - 4.0 cm): 2.85 cm LVIVS thickness (0.6 - 1.2 cm): 1.41 cm LVPW thickness (0.5 - 1.0 cm): 1.64 cm e': 0.08 m/s E - e': 12.44 LVOT Max Gradient: 2.29 mm[Hg] LVOT Area (cm2): 0.76 m/s Peak Velocity (LVOT): 0.76 m/s Mean Velocity (LVOT): 0.53 m/s LVOT Diameter 2.16 cm Left Ventricular Ejection Fraction: 55-60 % Left Atrium LA Volume Index (2D A2C): 32.78 ml/m2 Left Atrium Systolic Dimension: 3.31 cm Mitral Valve MV E to A Ratio: 1.17 Mitral Valve A-Wave Peak Velocity: 0.82 m/s Mitral Valve E-Wave Peak Velocity: 0.96 m/s Right Ventricle RV Internal Diastolic Dimension: 3.58 cm Aorta AO Root Diam: 3.85 cm Ascending Ao Diam: 3.42 cm Aortic Valve AoV Area (Peak Felix): 3.09 cm2, 3.15 cm2 AoV Area (VTI): 2.74 cm2, 2.84 cm2 Peak Velocity(Antegrade Flow): 0.88 m/s, 0.91 m/s Peak Gradient(Antegrade Flow): 3.09 mm[Hg], 3.32 mm[Hg] Mean Velocity(Antegrade Flow): 0.63 m/s, 0.66 m/s Mean Gradient(Antegrade Flow): 1.77 mm[Hg], 1.96 mm[Hg] Velocity Time Integral: 20.89 cm, 22.28 cm Tricuspid Valve Peak Velocity (Regurgitant Flow): 2.07 m/s Pulmonic Valve Mean Gradient: 0.89 mm[Hg], 0.82 mm[Hg] Mean Velocity: 0.43 m/s, 0.40 m/s Peak Velocity: 0.70 m/s Peak Gradient: 2.05 mm[Hg], 1.89 mm[Hg] Right Atrium Right Atrium Systolic Pressure: 37.95 ml, 37.95 ml Dictated by: Sunny Greenfield M.D. on 01/03/2025 at 19:45 Approved by: Sunny Greenfield M.D. on 01/03/2025 at 19:48
== END 2025-01-03 16:12 | disposition home or self-care (01) ==
LOC: CARD 16:12
PROVIDERS: PCP Nurse Practitioner; Visit Provider Nurse Practitioner Family
DX: R06.09 Other forms of dyspnea (principal)
CPT/HCPCS: 93306